=== PATIENT | male | born 1975 | race Caucasian/White ===

== ENCOUNTER 2016-11-01 16:21 | Inpatient (IN) | payer SELFPAY ==
[~2016-11-01] VITALS: Ht 182.9 cm; Wt 96.0 kg
[~2016-11-01 16:21] MED LIST: AMOXICILLIN500 MG PO; ARTIFI TEAR1 OS; BACTRIM DS1 TAB PO; BAYER ASPIRIN E81 MG PO; DIABETA5 MG PO; GLYBURIDE5 M1 PO; GLYBURIDE5 MG PO; KEFLEX500 M1 PO; LEVEMIR1000 UNITS SC; METFORMIN500 M2 PO; METFORMIN500 MG PO; MUPIROCIN2 % EX; NO HOME MEDS; NOVOLIN 70/30 INNLT SC; NOVOLIN 70/30 SC; ULTRAM50 MG PO; UNKNOWN ABX; ZOFRAN4 MG/TAB PO
[2016-11-01] MEDS ORDERED: LISINOPRIL5 MG PO (16:45)
[2016-11-01 20:18] LABS: ALBUMIN 3.7 g/dL (3.2-5.0); ALKALINE PHOSPHATASE 163 u/l (38-126); ANION GAP 23 (6-22 (CALC)); BILIRUBIN, TOTAL 0.6 mg/dL (0.0-1.4); BUN 12 mg/dL (9-20); BUN/CREATININE RATIO 18 (12-20 (CALC)); CALCIUM 9.2 mg/dL (8.4-10.2); CARBON DIOXIDE 19 mmol/l (22-30); CHLORIDE 98 mmol/l (95-108); CREATININE 0.6 mg/dL (0.7-1.3); GFR > 60 ML/MIN (>=60 (CALC)); GFR FOR AFR.AMER. > 60 ML/MIN (>=60 (CALC)); GLUCOSE 332 mg/dL (75-110); POTASSIUM 4.6 mmol/l (3.5-5.1); SGOT/AST 10 u/l (17-59); SGPT/ALT 21 u/l (21-72); SODIUM 136 mmol/l (137-146); TOTAL PROTEIN 6.9 g/dL (6.3-8.2)
[2016-11-01 21:18] LABS: HEMATOCRIT 41.1 % (39.0-50.0); HEMOGLOBIN 13.9 g/dl (14.0-18.0); IMMATURE GRANULOCYTES 0.3 % (0.0-1.0); MEAN CELL VOLUME 88.6 fL CALC (80.0-100.0); MEAN CORPUSCULAR HGB CONC 33.8 g/L CALC (32.0-36.0); NEUT# 8.56 thou/uL (1.82-7.42); RED BLOOD COUNT 4.64 mill/uL (4.70-6.10); RED CELL DISTRI WIDTH 12.7 % (11.5-15.5)
[2016-11-01 22:22] LABS: BARBITURATES NEGATIVE (NEGATIVE); COCAINE NEGATIVE (NEGATIVE); METHADONE NEGATIVE (NEGATIVE); OXCYCODONE NEGATIVE (NEGATIVE); TETRAHYDROCANNABIONOL POSITIVE (NEGATIVE); TRICYLIC ANTIDEPRESSANTS NEGATIVE (NEGATIVE)
[2016-11-01 23:00] VITALS: BP 141/108
[2016-11-02 04:35] VITALS: BP 151/83
[2016-11-02 07:59] LABS: HEMATOCRIT 41.4 % (39.0-50.0); IMMATURE GRANULOCYTES 0.5 % (0.0-1.0); MEAN CORPUSCULAR HGB 30.1 pG CALC (26.0-32.0); MEAN CORPUSCULAR HGB CONC 33.8 g/L CALC (32.0-36.0); NEUT# 6.26 thou/uL (1.82-7.42); RED BLOOD COUNT 4.65 mill/uL (4.70-6.10); RED CELL DISTRI WIDTH 12.8 % (11.5-15.5)
[2016-11-02 08:13] LABS: ANION GAP 21 (6-22 (CALC)); BUN 10 mg/dL (9-20); BUN/CREATININE RATIO 17 (12-20 (CALC)); CALCIUM 8.8 mg/dL (8.4-10.2); CARBON DIOXIDE 17 mmol/l (22-30); CHLORIDE 101 mmol/l (95-108); CREATININE 0.6 mg/dL (0.7-1.3); GFR > 60 ML/MIN (>=60 (CALC)); GFR FOR AFR.AMER. > 60 ML/MIN (>=60 (CALC)); GLUCOSE 242 mg/dL (75-110); POTASSIUM 4.4 mmol/l (3.5-5.1); SODIUM 134 mmol/l (137-146)
[2016-11-02 09:07] VITALS: BP 135/91
[2016-11-02 15:29] VITALS: BP 124/76
[2016-11-03 04:33] VITALS: BP 107/71
[2016-11-03 08:04] VITALS: BP 137/89
[2016-11-03] MEDS ORDERED: ACCUPRIL5 MG (08:28)
[2016-11-03 10:31] VITALS: BP 126/79
[2016-11-03 14:29] VITALS: BP 132/90
[2016-11-03 20:19] VITALS: BP 148/81
[2016-11-04 04:53] VITALS: BP 112/73
[2016-11-04 05:34] LABS: ANION GAP 10 (6-22 (CALC)); BUN 7 mg/dL (9-20); BUN/CREATININE RATIO 13 (12-20 (CALC)); CALCIUM 8.3 mg/dL (8.4-10.2); CARBON DIOXIDE 25 mmol/l (22-30); CHLORIDE 108 mmol/l (95-108); CREATININE 0.6 mg/dL (0.7-1.3); GFR > 60 ML/MIN (>=60 (CALC)); GFR FOR AFR.AMER. > 60 ML/MIN (>=60 (CALC)); GLUCOSE 52 mg/dL (75-110); POTASSIUM 3.2 mmol/l (3.5-5.1); SODIUM 140 mmol/l (137-146)
[2016-11-04 08:54] VITALS: BP 155/89
[2016-11-04 16:30] VITALS: BP 150/94
[2016-11-04 19:57] VITALS: BP 130/83
[2016-11-05] VITALS (9 sets, daily range): BP systolic 133–158; BP diastolic 74–100
[2016-11-05 05:47] LABS: HEMATOCRIT 41.3 % (39.0-50.0); HEMOGLOBIN 13.6 g/dl (14.0-18.0); IMMATURE GRANULOCYTES 0.3 % (0.0-1.0); MEAN CORPUSCULAR HGB 29.6 pG CALC (26.0-32.0); MEAN CORPUSCULAR HGB CONC 32.9 g/L CALC (32.0-36.0); NEUT# 3.5 thou/uL (1.82-7.42); RED BLOOD COUNT 4.59 mill/uL (4.70-6.10); RED CELL DISTRI WIDTH 13.2 % (11.5-15.5)
[2016-11-05 05:57] LABS: ANION GAP 12 (6-22 (CALC)); BUN 5 mg/dL (9-20); BUN/CREATININE RATIO 7 (12-20 (CALC)); CALCIUM 8.2 mg/dL (8.4-10.2); CARBON DIOXIDE 25 mmol/l (22-30); CHLORIDE 107 mmol/l (95-108); CREATININE 0.7 mg/dL (0.7-1.3); GFR > 60 ML/MIN (>=60 (CALC)); GFR FOR AFR.AMER. > 60 ML/MIN (>=60 (CALC)); GLUCOSE 222 mg/dL (75-110); POTASSIUM 3.7 mmol/l (3.5-5.1); SODIUM 140 mmol/l (137-146)
[2016-11-05 08:37] LABS: BARBITURATES NEGATIVE (NEGATIVE); COCAINE NEGATIVE (NEGATIVE); METHADONE NEGATIVE (NEGATIVE); TETRAHYDROCANNABIONOL POSITIVE (NEGATIVE); TRICYLIC ANTIDEPRESSANTS NEGATIVE (NEGATIVE)
[2016-11-05 08:38] LABS: OXCYCODONE NEGATIVE (NEGATIVE)
[2016-11-06 06:05] VITALS: BP 156/97
[2016-11-06 09:39] VITALS: BP 148/93
[2016-11-06 15:04] VITALS: BP 151/97
[2016-11-06 19:18] VITALS: BP 180/94
[2016-11-06 20:06] LABS: C. DIFFICILE TOXIN A&B NEGATIVE (NEGATIVE)
[2016-11-06 23:35] VITALS: BP 136/85
[2016-11-07 05:09] VITALS: BP 163/98
[2016-11-07 06:05] LABS: HEMATOCRIT 40.7 % (39.0-50.0); HEMOGLOBIN 13.5 g/dl (14.0-18.0); IMMATURE GRANULOCYTES 0.4 % (0.0-1.0); MEAN CELL VOLUME 90.4 fL CALC (80.0-100.0); MEAN CORPUSCULAR HGB CONC 33.2 g/L CALC (32.0-36.0); NEUT# 11.53 thou/uL (1.82-7.42); RED BLOOD COUNT 4.5 mill/uL (4.70-6.10); RED CELL DISTRI WIDTH 13.2 % (11.5-15.5)
[2016-11-07 06:52] LABS: ANION GAP 19 (6-22 (CALC)); BUN 5 mg/dL (9-20); BUN/CREATININE RATIO 7 (12-20 (CALC)); CALCIUM 8.4 mg/dL (8.4-10.2); CARBON DIOXIDE 21 mmol/l (22-30); CHLORIDE 109 mmol/l (95-108); CREATININE 0.8 mg/dL (0.7-1.3); GFR > 60 ML/MIN (>=60 (CALC)); GFR FOR AFR.AMER. > 60 ML/MIN (>=60 (CALC)); GLUCOSE 215 mg/dL (75-110); POTASSIUM 3.3 mmol/l (3.5-5.1); SODIUM 146 mmol/l (137-146)
[2016-11-07 08:50] VITALS: BP 136/80
[2016-11-07 15:25] VITALS: BP 156/94
[2016-11-07 20:10] VITALS: BP 130/67
[2016-11-07 21:04] VITALS: BP 147/90
[2016-11-08 04:37] VITALS: BP 144/91
[2016-11-08 05:06] LABS: HEMATOCRIT 40.1 % (39.0-50.0); HEMOGLOBIN 13.4 g/dl (14.0-18.0); IMMATURE GRANULOCYTES 0.3 % (0.0-1.0); MEAN CELL VOLUME 88.9 fL CALC (80.0-100.0); MEAN CORPUSCULAR HGB 29.7 pG CALC (26.0-32.0); MEAN CORPUSCULAR HGB CONC 33.4 g/L CALC (32.0-36.0); NEUT# 10.42 thou/uL (1.82-7.42); RED BLOOD COUNT 4.51 mill/uL (4.70-6.10); RED CELL DISTRI WIDTH 13.2 % (11.5-15.5)
[2016-11-08 05:18] LABS: ANION GAP 15 (6-22 (CALC)); BUN 7 mg/dL (9-20); BUN/CREATININE RATIO 9 (12-20 (CALC)); CARBON DIOXIDE 27 mmol/l (22-30); CHLORIDE 106 mmol/l (95-108); CREATININE 0.8 mg/dL (0.7-1.3); GFR > 60 ML/MIN (>=60 (CALC)); GFR FOR AFR.AMER. > 60 ML/MIN (>=60 (CALC)); GLUCOSE 132 mg/dL (75-110); POTASSIUM 3.5 mmol/l (3.5-5.1); SODIUM 145 mmol/l (137-146)
[2016-11-08 08:20] VITALS: BP 105/69
[2016-11-08 12:59] VITALS: BP 105/69
[2016-11-08] MEDS ORDERED: SERTRALINE HCL50 MG PO (13:09)
[2016-11-08] MEDS ORDERED: PANTOPRAZOLE SO40 M1 PO (13:09)
[2016-11-08] MEDS ORDERED: FLORASTOR250 M1 PO (13:09)
[2016-11-08] MEDS ORDERED: ZOFRAN ODT4 MG PO (13:09)
[2016-11-08] MEDS ORDERED: DOXYCYC MONO100 M2 PO (13:09)
[2016-11-08] MEDS ORDERED: CIPROFLOXACN250 MG PO (13:09)
[2016-11-08] MEDS ORDERED: LORTAB 10-325 M1 TAB PO (13:09)
== END 2016-11-08 16:22 | disposition home or self-care (01) | DRG 617 ==
LOC: ENPENDDIS → ED 16:21 → ED-I 21:00 → ED 21:58 → MS2 21:59
PROVIDERS: Emergency Medicine; Internal Medicine; ADMIT Internal Medicine; ATTEND Internal Medicine
PROC: 02HV33Z Insertion of Infusion Device into Superior Vena Cava, Percutaneous Approach (ICD-10-PCS; principal; 2016-11-01)
PROC: 0Y6S0Z0 Detachment at Left 2nd Toe, Complete, Open Approach (ICD-10-PCS; 2016-11-05)
DX: E11.69 Type 2 diabetes mellitus with other specified complication (principal); E11.52 Type 2 diabetes mellitus with diabetic peripheral angiopathy with gangrene; M86.172 Other acute osteomyelitis, left ankle and foot; F15.20 Other stimulant dependence, uncomplicated; E11.65 Type 2 diabetes mellitus with hyperglycemia; L97.524 Non-pressure chronic ulcer of other part of left foot with necrosis of bone; L02.612 Cutaneous abscess of left foot; E11.621 Type 2 diabetes mellitus with foot ulcer; E11.42 Type 2 diabetes mellitus with diabetic polyneuropathy; E11.628 Type 2 diabetes mellitus with other skin complications; F17.210 Nicotine dependence, cigarettes, uncomplicated; F10.10 Alcohol abuse, uncomplicated; I10 Essential (primary) hypertension; F12.20 Cannabis dependence, uncomplicated; L03.032 Cellulitis of left toe; B96.5 Pseudomonas (aeruginosa) (mallei) (pseudomallei) as the cause of diseases classified elsewhere; Z91.14 Patient's other noncompliance with medication regimen; Z79.4 Long term (current) use of insulin; Z89.412 Acquired absence of left great toe
CPT/HCPCS: J3370

== ENCOUNTER 2016-12-11 14:37 | Observation (INO) | payer SELFPAY ==
[~2016-12-11] VITALS: Ht 182.9 cm; Wt 102.0 kg
[~2016-12-11 14:37] MED LIST changes: +ACCUPRIL5 MG; +CIPROFLOXACN250 MG PO; +DOXYCYC MONO100 M2 PO; +FLORASTOR250 M1 PO; +LISINOPRIL5 MG PO; +LORTAB 10-325 M1 TAB PO; +PANTOPRAZOLE SO40 M1 PO; +SERTRALINE HCL50 MG PO; +ZOFRAN ODT4 MG PO
[2016-12-11] MEDS ORDERED: NOVOLIN 70/30 SC (15:03)
[2016-12-11] MEDS ORDERED: METFORMIN500 M2 PO (15:03)
[2016-12-11 16:20] LABS: HEMATOCRIT 37.6 % (39.0-50.0); HEMOGLOBIN 12.5 g/dl (14.0-18.0); IMMATURE GRANULOCYTES 0.2 % (0.0-1.0); MEAN CORPUSCULAR HGB 29.9 pG CALC (26.0-32.0); MEAN CORPUSCULAR HGB CONC 33.2 g/L CALC (32.0-36.0); NEUT# 3.43 thou/uL (1.82-7.42); RED BLOOD COUNT 4.18 mill/uL (4.70-6.10); RED CELL DISTRI WIDTH 13.9 % (11.5-15.5)
[2016-12-11 16:32] LABS: ALBUMIN 3.5 g/dL (3.2-5.0); ALKALINE PHOSPHATASE 87 u/l (38-126); ANION GAP 15 (6-22 (CALC)); BILIRUBIN, TOTAL 0.5 mg/dL (0.0-1.4); BUN 8 mg/dL (9-20); BUN/CREATININE RATIO 12 (12-20 (CALC)); CALCIUM 8.7 mg/dL (8.4-10.2); CARBON DIOXIDE 25 mmol/l (22-30); CHLORIDE 97 mmol/l (95-108); CREATININE 0.7 mg/dL (0.7-1.3); GFR > 60 ML/MIN (>=60 (CALC)); GFR FOR AFR.AMER. > 60 ML/MIN (>=60 (CALC)); POTASSIUM 4.1 mmol/l (3.5-5.1); SGOT/AST 13 u/l (17-59); SGPT/ALT 18 u/l (21-72); SODIUM 133 mmol/l (137-146); TOTAL PROTEIN 6.2 g/dL (6.3-8.2)
[2016-12-11 16:37] LABS: GLUCOSE 614 mg/dL (75-110)
[2016-12-11 19:22] VITALS: BP 131/84
[2016-12-12] VITALS (8 sets, daily range): BP systolic 116–174; BP diastolic 68–119
[2016-12-12 08:41] LABS: BARBITURATES NEGATIVE (NEGATIVE); COCAINE NEGATIVE (NEGATIVE); METHADONE NEGATIVE (NEGATIVE); TETRAHYDROCANNABIONOL POSITIVE (NEGATIVE); TRICYLIC ANTIDEPRESSANTS NEGATIVE (NEGATIVE)
[2016-12-12 08:42] LABS: OXCYCODONE NEGATIVE (NEGATIVE)
[2016-12-13 04:27] VITALS: BP 143/86
[2016-12-13 05:28] LABS: HEMOGLOBIN 13.9 g/dl (14.0-18.0); IMMATURE GRANULOCYTES 0.9 % (0.0-1.0); MEAN CELL VOLUME 91.1 fL CALC (80.0-100.0); MEAN CORPUSCULAR HGB 29.4 pG CALC (26.0-32.0); MEAN CORPUSCULAR HGB CONC 32.3 g/L CALC (32.0-36.0); NEUT# 3.14 thou/uL (1.82-7.42); RED BLOOD COUNT 4.72 mill/uL (4.70-6.10); RED CELL DISTRI WIDTH 13.8 % (11.5-15.5)
[2016-12-13 05:30] LABS: ANION GAP 10 (6-22 (CALC)); BUN 7 mg/dL (9-20); BUN/CREATININE RATIO 9 (12-20 (CALC)); CALCIUM 8.7 mg/dL (8.4-10.2); CARBON DIOXIDE 29 mmol/l (22-30); CHLORIDE 106 mmol/l (95-108); CREATININE 0.7 mg/dL (0.7-1.3); GFR > 60 ML/MIN (>=60 (CALC)); GFR FOR AFR.AMER. > 60 ML/MIN (>=60 (CALC)); GLUCOSE 153 mg/dL (75-110); POTASSIUM 3.6 mmol/l (3.5-5.1); SODIUM 141 mmol/l (137-146)
[2016-12-13 07:50] VITALS: BP 161/109
[2016-12-13 11:23] VITALS: BP 153/97
[2016-12-13] MEDS ORDERED: BACTRIM DS1 TAB PO (11:46)
[2016-12-13] MEDS ORDERED: CIPROFLOXACN500 MG PO (11:46)
== END 2016-12-13 14:38 | disposition home or self-care (01) | DRG 638 ==
LOC: ENPENDDIS → ED 14:37 → ED-I 16:40 → ED 17:05 → MS2 17:06
PROVIDERS: Emergency Medicine; Internal Medicine; Podiatrist Foot & Ankle Surgery; ADMIT Internal Medicine; ATTEND Internal Medicine
DX: E11.628 Type 2 diabetes mellitus with other skin complications (principal); L97.421 Non-pressure chronic ulcer of left heel and midfoot limited to breakdown of skin; M86.9 Osteomyelitis, unspecified; E11.42 Type 2 diabetes mellitus with diabetic polyneuropathy; E11.621 Type 2 diabetes mellitus with foot ulcer; E11.69 Type 2 diabetes mellitus with other specified complication; L03.031 Cellulitis of right toe; L97.519 Non-pressure chronic ulcer of other part of right foot with unspecified severity; E11.65 Type 2 diabetes mellitus with hyperglycemia; I10 Essential (primary) hypertension; F15.10 Other stimulant abuse, uncomplicated; F10.10 Alcohol abuse, uncomplicated; F17.210 Nicotine dependence, cigarettes, uncomplicated; Z53.09 Procedure and treatment not carried out because of other contraindication; Z91.14 Patient's other noncompliance with medication regimen; Z89.422 Acquired absence of other left toe(s); Z79.4 Long term (current) use of insulin; Z76.5 Malingerer [conscious simulation]; Z89.412 Acquired absence of left great toe
CPT/HCPCS: G0378; J3370

== ENCOUNTER 2017-03-08 01:30 | Inpatient (IN) | payer SELFPAY ==
[2017-03-08] VITALS (14 sets, daily range): BP systolic 118–178; BP diastolic 68–94
[~2017-03-08] VITALS: Ht 182.9 cm; Wt 87.8 kg
[~2017-03-08 01:30] MED LIST changes: +CIPROFLOXACN500 MG PO
[2017-03-08 02:44] LABS: HEMATOCRIT 43.5 % (39.0-50.0); HEMOGLOBIN 14.4 g/dl (14.0-18.0); IMMATURE GRANULOCYTES 0.9 % (0.0-1.0); MEAN CELL VOLUME 93.1 fL CALC (80.0-100.0); MEAN CORPUSCULAR HGB 30.8 pG CALC (26.0-32.0); MEAN CORPUSCULAR HGB CONC 33.1 g/L CALC (32.0-36.0); NEUT# 23.71 thou/uL (1.82-7.42); RED BLOOD COUNT 4.67 mill/uL (4.70-6.10); RED CELL DISTRI WIDTH 13.8 % (11.5-15.5)
[2017-03-08 02:55] LABS: AMYLASE 73 u/l (30-110); LIPASE 141 u/l (23-300)
[2017-03-08 02:57] LABS: ALBUMIN 4.2 g/dL (3.2-5.0); ALKALINE PHOSPHATASE 136 u/l (38-126); BILIRUBIN, TOTAL 0.8 mg/dL (0.0-1.4); BUN 32 mg/dL (9-20); BUN/CREATININE RATIO 22 (12-20 (CALC)); CALCIUM 8.2 mg/dL (8.4-10.2); CHLORIDE 89 mmol/l (95-108); CREATININE 1.5 mg/dL (0.7-1.3); ETHYL ALCOHOL 0 mg/dl (0-30); GFR 52 ML/MIN (>=60 (CALC)); GFR FOR AFR.AMER. > 60 ML/MIN (>=60 (CALC)); SGOT/AST 12 u/l (17-59); SGPT/ALT 21 u/l (21-72); SODIUM 130 mmol/l (137-146); TOTAL PROTEIN 6.5 g/dL (6.3-8.2)
[2017-03-08 03:06] LABS: ANION GAP 43 (6-22 (CALC))
[2017-03-08 03:07] LABS: GLUCOSE 1165 mg/dL (75-110); POTASSIUM 6.6 mmol/l (3.5-5.1)
[2017-03-08 03:08] LABS: CARBON DIOXIDE < 5 mmol/l (22-30)
[2017-03-08 07:05] LABS: BUN 30 mg/dL (9-20); BUN/CREATININE RATIO 30 (12-20 (CALC)); CALCIUM 8.1 mg/dL (8.4-10.2); CARBON DIOXIDE 13 mmol/l (22-30); GFR > 60 ML/MIN (>=60 (CALC)); GFR FOR AFR.AMER. > 60 ML/MIN (>=60 (CALC)); MAGNESIUM 1.9 mg/dL (1.6-2.3)
[2017-03-08 07:07] LABS: ANION GAP 27 (6-22 (CALC)); CHLORIDE 107 mmol/l (95-108); POTASSIUM 4.2 mmol/l (3.5-5.1); SODIUM 143 mmol/l (137-146)
[2017-03-08 07:12] LABS: GLUCOSE 619 mg/dL (75-110)
[2017-03-08 15:08] LABS: ANION GAP 16 (6-22 (CALC)); BUN 24 mg/dL (9-20); BUN/CREATININE RATIO 33 (12-20 (CALC)); CALCIUM 8.4 mg/dL (8.4-10.2); CARBON DIOXIDE 23 mmol/l (22-30); CHLORIDE 108 mmol/l (95-108); CREATININE 0.7 mg/dL (0.7-1.3); GFR > 60 ML/MIN (>=60 (CALC)); GFR FOR AFR.AMER. > 60 ML/MIN (>=60 (CALC)); GLUCOSE 247 mg/dL (75-110); POTASSIUM 3.8 mmol/l (3.5-5.1); SODIUM 143 mmol/l (137-146)
[2017-03-09] VITALS (8 sets, daily range): BP systolic 132–164; BP diastolic 63–88
[2017-03-09 05:29] LABS: HEMATOCRIT 35.9 % (39.0-50.0); HEMOGLOBIN 12.3 g/dl (14.0-18.0); MEAN CORPUSCULAR HGB 30.1 pG CALC (26.0-32.0); MEAN CORPUSCULAR HGB CONC 34.3 g/L CALC (32.0-36.0); RED BLOOD COUNT 4.08 mill/uL (4.70-6.10); RED CELL DISTRI WIDTH 14.1 % (11.5-15.5)
[2017-03-09 05:36] LABS: ANION GAP 11 (6-22 (CALC)); BUN 15 mg/dL (9-20); BUN/CREATININE RATIO 28 (12-20 (CALC)); CALCIUM 8.5 mg/dL (8.4-10.2); CARBON DIOXIDE 27 mmol/l (22-30); CHLORIDE 105 mmol/l (95-108); CREATININE 0.5 mg/dL (0.7-1.3); GFR > 60 ML/MIN (>=60 (CALC)); GFR FOR AFR.AMER. > 60 ML/MIN (>=60 (CALC)); GLUCOSE 90 mg/dL (75-110); MAGNESIUM 1.7 mg/dL (1.6-2.3); POTASSIUM 3.4 mmol/l (3.5-5.1); SODIUM 140 mmol/l (137-146)
[2017-03-09 07:30] LABS: URINE BILIRUBIN - DIPSTICK NEGATIVE (NEGATIVE); URINE BLOOD DIPSTICK NEGATIVE (NEGATIVE); URINE CLARITY CLEAR; URINE COLOR YELLOW; URINE GLUCOSE - DIPSTICK 500 mg/dL (NEGATIVE); URINE KETONE 15 mg/dL (NEGATIVE); URINE LEUK ESTERASE NEGATIVE (NEGATIVE); URINE NITRITE - DIPSTICK NEGATIVE (Negative); URINE PROTEIN - DIPSTICK NEGATIVE (NEG-TRACE); URINE UROBILINOGEN - DIPSTICK 0.2 E.U./dL (0.2)
[2017-03-09 07:31] LABS: BARBITURATES NEGATIVE (NEGATIVE); COCAINE NEGATIVE (NEGATIVE); METHADONE NEGATIVE (NEGATIVE); OXCYCODONE NEGATIVE (NEGATIVE); TETRAHYDROCANNABIONOL POSITIVE (NEGATIVE); TRICYLIC ANTIDEPRESSANTS NEGATIVE (NEGATIVE)
== END 2017-03-09 15:00 | disposition home or self-care (01) | DRG 638 ==
LOC: ED 01:30 → ED-I 03:00 → ED 03:15 → ICU 03:16
PROVIDERS: Emergency Medicine; ADMIT Internal Medicine; ATTEND Internal Medicine
DX: E13.10 Other specified diabetes mellitus with ketoacidosis without coma (principal); N17.9 Acute kidney failure, unspecified; E87.4 Mixed disorder of acid-base balance; E87.5 Hyperkalemia; I10 Essential (primary) hypertension; F10.10 Alcohol abuse, uncomplicated; F17.200 Nicotine dependence, unspecified, uncomplicated; F15.10 Other stimulant abuse, uncomplicated; F12.10 Cannabis abuse, uncomplicated; Z89.422 Acquired absence of other left toe(s); Z79.4 Long term (current) use of insulin; Z91.14 Patient's other noncompliance with medication regimen

== ENCOUNTER 2017-09-09 04:53 | Emergency (ER) | payer SELFPAY ==
[~2017-09-09] VITALS: Ht 182.9 cm; Wt 77.3 kg
[2017-09-09 05:32] LABS: ALBUMIN 3.8 g/dL (3.2-5.0); ALKALINE PHOSPHATASE 120 u/l (38-126); BILIRUBIN, TOTAL 0.7 mg/dL (0.0-1.4); BUN 67 mg/dL (9-20); BUN/CREATININE RATIO 66 (12-20 (CALC)); CARBON DIOXIDE 23 mmol/l (22-30); CHLORIDE 93 mmol/l (95-108); GFR > 60 ML/MIN (>=60 (CALC)); GFR FOR AFR.AMER. > 60 ML/MIN (>=60 (CALC)); SGOT/AST 18 u/l (17-59); SGPT/ALT 20 u/l (21-72); TOTAL PROTEIN 6.5 g/dL (6.3-8.2)
[2017-09-09 05:36] LABS: HEMATOCRIT 36.2 % (39.0-50.0); HEMOGLOBIN 12.5 g/dl (14.0-18.0); RED BLOOD COUNT 3.85 mill/uL (4.70-6.10)
[2017-09-09 05:37] LABS: MANUAL DIFFERENTIAL YES; MEAN CORPUSCULAR HGB 32.5 pG CALC (26.0-32.0); MEAN CORPUSCULAR HGB CONC 34.5 g/L CALC (32.0-36.0); PLATELET COUNT 385 thou/uL (130-400); RED CELL DISTRI WIDTH 13.2 % (11.5-15.5)
[2017-09-09 05:38] LABS: ANION GAP 20 (6-22 (CALC)); PROTHROMBIN TIME 10.7 SECONDS (9.0-12.5)
[2017-09-09 05:39] LABS: POTASSIUM 5.3 mmol/l (3.5-5.1); SODIUM 131 mmol/l (137-146)
[2017-09-09 08:10] VITALS: BP 108/72
== END 2017-09-09 09:15 | disposition short-term general hospital (02) | DRG 379 ==
LOC: ED 04:53
PROVIDERS: Emergency Medicine
DX: K92.2 Gastrointestinal hemorrhage, unspecified (principal); E11.621 Type 2 diabetes mellitus with foot ulcer; F17.210 Nicotine dependence, cigarettes, uncomplicated; E11.65 Type 2 diabetes mellitus with hyperglycemia; L97.529 Non-pressure chronic ulcer of other part of left foot with unspecified severity
CPT/HCPCS: S0164

== ENCOUNTER 2018-04-22 17:37 | Inpatient (IN) | payer OTHER ==
[~2018-04-22] VITALS: Ht 182.9 cm; Wt 72.7 kg
--- NOTE | 2018-04-22 17:47 | NUR ---
PT TO ROOM VIA EMS
[2018-04-22 18:21] LABS: HEMATOCRIT 31.8 % (39.0-50.0); HEMOGLOBIN 10.7 g/dl (14.0-18.0); IMMATURE GRANULOCYTES 0.3 % (0.0-5.0); MEAN CELL VOLUME 90.3 fL CALC (80.0-100.0); MEAN CORPUSCULAR HGB 30.4 pG CALC (26.0-32.0); MEAN CORPUSCULAR HGB CONC 33.6 g/L CALC (32.0-36.0); NEUT# 7.89 thou/uL (1.82-7.42); RED BLOOD COUNT 3.52 mill/uL (4.70-6.10); RED CELL DISTRI WIDTH 13.4 % (11.5-15.5)
[2018-04-22 18:30] LABS: ACT PARTIAL THROMBO TIME 22.9 SECONDS (20.0-32.5)
[2018-04-22 18:34] LABS: ANION GAP 13 (6-22 (CALC)); BILIRUBIN, TOTAL 0.7 mg/dL (0.0-1.4); BUN 17 mg/dL (9-20); BUN/CREATININE RATIO 28 (12-20 (CALC)); CARBON DIOXIDE 29 mmol/l (22-30); CHLORIDE 101 mmol/l (95-108); CREATININE 0.6 mg/dL (0.7-1.3); GFR > 60 ML/MIN (>=60 (CALC)); GFR FOR AFR.AMER. > 60 ML/MIN (>=60 (CALC)); SGOT/AST 26 u/l (17-59); SODIUM 140 mmol/l (137-146)
[2018-04-22 18:35] LABS: ALBUMIN 3.7 g/dL (3.2-5.0); ALKALINE PHOSPHATASE 115 u/l (38-126); TOTAL PROTEIN 6.5 g/dL (6.3-8.2)
--- NOTE | 2018-04-22 18:48 | NUR ---
PATIENT RESTING AWAITING LAB AND RADIOLOGY RESULTS PATIENT STATES PAIN IN FOOT 4 ON 0-10 SCALE
--- NOTE | 2018-04-22 18:50 | NUR ---
PORTABLE XRAYS COMPLETED
--- NOTE | 2018-04-22 19:45 | NUR ---
ULCER TO L FOOT CLEANED WITH SALINE, TELFA DRESSING APPLIED.
--- NOTE | 2018-04-22 19:45 | NUR ---
ULCER TO R FOOT CLEANED WITH SALINE, TELFA DRESSING APPLIED.
--- NOTE | 2018-04-22 19:46 | NUR ---
ULCER TO L GREAT TOE CLEANED WITH SALINE, TELFA DRESSING APPLIED.
--- NOTE | 2018-04-22 19:59 | NUR ---
PT PROVIDED WATER AND [facility].
--- NOTE | 2018-04-22 20:38 | NUR ---
FLOOR CALLED FOR REPORT, UNABLE TO TAKE AT THIS TIME.
--- NOTE | 2018-04-22 20:55 | NUR ---
REPORT CALLED TO CHRISTOFER ALEX.
[2018-04-22 21:00] VITALS: BP 136/70
--- NOTE | 2018-04-22 21:15 | NUR ---
PT ARRIVED TO UNIT ACCOMPANIED BY ED NURSE, VIA STRETCHER AND SCOOTED HIMSELF TO HOSPITAL BED. FOLLOWED INSTRUCTIONS AND ANSWERED QUESTIONS MOANING AND GROANING IN BETWEEN, FLOPPING ON THE BED. DIFFICULT TO UNDERSTAND AND COMMUNICATE WITH. WHEN ASKED QUESTIONS HE HAS TO BE ASKED TWICE AND THEN HE WILL ANSWER. LOC TO SELF, DATE, AND LOCATION/SITUATION. PT REPORTS BEING AN ALCOHOLIC AND DRINKING 1 PINT OF VODKA DAILY INCLUDING THIS DAY. WILL NOTIFY PHYSICIAN. PT ASSESSED. FEET ARE EDEMATOUS 2+ BILATERALLY WITH DRESSINGS CDI TO BOTH FEET. LUNG SOUNDS ARE CLEAR, ABD SOFT NON-TENDER. V/S ASSESSED AT THIS TIME TO BE STABLE. TEMP IS 98.3. BS ASSESSED @117. WILL CONTINUE TO MONITOR.
--- NOTE | 2018-04-22 21:15 | NUR ---
PT TO 269 WITH RN. ALL BELONGINGS WITH PT.
--- NOTE | 2018-04-22 21:45 | NUR ---
PHYSICIAN NOTIFIED OF PT REPORTS OF DAILY HEAVY ALCOHOL USE AND ERATIC BEHAVIOR. ORDERS RECEIVED AND ETOH HAS BEEN ORDERED. WILL CONTINUE TO MONITOR PT NEEDED.
[2018-04-22 22:50] VITALS: BP 128/69
--- NOTE | 2018-04-22 22:50 | NUR ---
MEDICATIONS HELD DUE TO PT BEING VERY LITHARGIC. V/S ASSESSED AGAIN AT THIS TIME 128/69,HR98,TEMP97.7,[id number]% WOULD BARELY OPEN HIS EYES, COULD COMMUNICATE W/SLURRED MUMBLING SPEECH. TUMBLER DRIER OPERATOR COMFIRMED EQUAL, PUPIL 3/EQUAL AND REACTIVE.
--- NOTE | 2018-04-23 03:20 | NUR ---
PT HAS NOT BEEN ABLE TO URINATE SINCE ARRIVING TO THE FLOOR, PT AGREED FOR BLADDER SCAN. SCAN SHOWED >999. POC DISCUSSED WITH PT, HE IS STATING THAT EVEN IF THE DOCTOR ORDERS CATHETERIZATION HE WILL LEAVE, HE WILL NOT BE CATHETERIZED. I REASSURED HIM THAT WOULD ONLY BE ORDERED IF HE WAS UN ABLE TO URINATE, BUT THAT HE NEEDED TO GET UP AND TRY. HE HAD BEEN ATTEMPTING THROUGHOUT THE EVENING W/MY COAXING TO USE URINAL IN BED, PT WAS VERY GROGGY AND SLEEPING THROUGHOUT THE EVENING. PT BECAME SOMEWHAT BELIGERENT AND TOLD ME TO LEAVE. I INFORMED HIM THAT I WOULD BE BACK IN 5 MINUTES TO CHECK FOR URINE OTHERWISE I WOULD HAVE TO CALL PHYSICIAN. HE WAS ABLE TO URINATE AN OUTPUT OF 700 IN URINAL. SAMPLE SENT TO LAB. WILL CONTINUE TO MONITOR.
[2018-04-23 03:30] VITALS: BP 133/53
[2018-04-23 03:39] LABS: BARBITURATES NEGATIVE (NEGATIVE); COCAINE NEGATIVE (NEGATIVE); METHADONE NEGATIVE (NEGATIVE); TETRAHYDROCANNABIONOL POSITIVE (NEGATIVE); TRICYLIC ANTIDEPRESSANTS NEGATIVE (NEGATIVE)
[2018-04-23 03:40] LABS: OXCYCODONE NEGATIVE (NEGATIVE)
--- NOTE | 2018-04-23 04:50 | NUR ---
PT V/S ASSESSED AND DRESSING CHANGED TO FEET BILATERALLY/PICTURES TAKEN AND IN CHART. IV FLUIDS CHANGED TO NS@125 ORDERS PROVIDE. PT IS SLEEPING SOUNDLY AND AWOKE SLIGHTLY THROUGHOUT ALL ACTIVITY PROMPTLY RETURNING BACK TO SLEEP. CALL LIGHT AT BEDSIDE. NO S/S OF DISTRESS NOTED AT THIS TIME.
--- NOTE | 2018-04-23 07:10 | NUR ---
PT REPORT RECIEVED FROM ABI DIAZ. PT RESTING IN BED. NO S/S OF DISTRESS. WILL CONTINUE TO MONITOR
[2018-04-23 08:16] VITALS: BP 151/85
--- NOTE | 2018-04-23 08:16 | NUR ---
PT ASSESSMENT COMPLETE. PT APPEARS TO BE DROWSY AND MOANING ALOT. BUT ANSWERS ALL QUESTIONS. A/O X3. SPEECH IS SLURRED. PERRLA. RESP EVEN AND UNLABORED. LUNG SOUNDS CLEAR. BOWEL SOUNDS ACTIVE X4. STRONG RADIAL PULSES, WEAK PEDAL PULSES. PT C/O ACHING BILATERAL LEGS R/T NEUROPATHY 6 OUT OF 10 ON PAIN SCALE. LEGS ELEVATED ON TWO PILLOWS. PT HAS DRESSINGS TO BILATERAL LEGS, CDI. #18 EMS NS @125. SITE APPEARS HEALTHY. PLAN OF CARE DISCUSSED. SAFETY PRECAUTIONS IN PLACE. CALL LIGHT IN REACH. WILL CONTINUE TO MONITOR.
--- NOTE | 2018-04-23 08:40 | NUR ---
DR. MARTINEZ WAS NOTIFIED ABOUT THE CONSULT @9791. I SPOKE TO DR. MARTINEZ PERSONALLY AND HE STATED THAT HE WOULD SEE THE PT TODAY.
[2018-04-23 10:15] LABS: URINE BILIRUBIN - DIPSTICK NEGATIVE (NEGATIVE); URINE BLOOD DIPSTICK NEGATIVE (NEGATIVE); URINE GLUCOSE - DIPSTICK 500 mg/dL (NEGATIVE); URINE KETONE NEGATIVE (NEGATIVE); URINE LEUK ESTERASE NEGATIVE (Negative); URINE NITRITE - DIPSTICK NEGATIVE (Negative); URINE PROTEIN - DIPSTICK 30 mg/dL (NEG-TRACE); URINE SPECIFIC GRAVITY 1.015
[2018-04-23 10:16] LABS: URINE CLARITY SL CLOUDY; URINE COLOR DK. YELLOW
[2018-04-23 10:17] LABS: URINE EPITHELIAL CELLS MODERATE EPI/hpf (0-FEW)
--- NOTE | 2018-04-23 12:15 | NUR ---
PT RESTING IN BED WITH COVERS OVER HIS FACE. PT DENIES ANY PAIN OR NEEDS AT THIS TIME. TELE IN PLACE. LEGS ELEVATED ON PILLOWS. CALL LIGHT IN REACH. WILL CONTINUE TO MONITOR
[2018-04-23 15:20] VITALS: BP 146/79
--- NOTE | 2018-04-23 16:22 | NUR ---
PT SLEEPING IN BED. WHEN ASKED IF HE NEEDED ANYTHING PT STATED "NO". PT SEEMS A BIT AGITATED BUT IS BACK SLEEPING. DENYING ANY PAIN OR NEEDS AT THIS TIME. CALL LIGHT IN REACH. URINAL AT BEDSIDE. WILL CONTINUE TO MONITOR
[2018-04-23 20:09] VITALS: BP 134/84
--- NOTE | 2018-04-23 21:10 | NUR ---
IV PUMP SOUNDING ALARM, PT IS SLEEPING SOUNDLY, SLIGHT SNORE, NO S/S OF DISTRESS AND DID NOT AWAKE TO MY ENTERING ROOM. PT AWAKENED AND ASSESSED. LUNG SOUNDS ARE CLEAR, LOCX3, DRESSING TO FEET BILAT CDI. NEURO'S INTACT, PT DENIES ANY NEEDS AT THIS TIME. POC DISCUSSED. CALL LIGHT AT BEDSIDE.
--- NOTE | 2018-04-23 23:51 | NUR ---
PT MEDICATED W/ANTIBIOTIC IV THERAPY. PT REFUSED LIBRIUM STATING HE DOES NOT NEED IT. NO S/S OF DISTRESS NOTED. DENIES VISUAL OR AUDITORY DISTURBANCES, NO NOTED TREMORS AT THIS TIME. WILL CONTINUE TO MONITOR.
[2018-04-24] VITALS (10 sets, daily range): BP systolic 100–161; BP diastolic 59–103
--- NOTE | 2018-04-24 04:10 | NUR ---
PT IS SLEEPING SOUNDLY, NO NOTED TREMORS OR S/S OF DISTRESS NOTED. PT DENIES ANY AUDITORY OR VISUAL DISTURBANCES. DENIES ANY PAIN AT THIS TIME. CALL LIGHT W/IN REACH. WILL CONTINUE TO MONITOR.
[2018-04-24 05:53] LABS: HEMATOCRIT 32.4 % (39.0-50.0); HEMOGLOBIN 10.7 g/dl (14.0-18.0); IMMATURE GRANULOCYTES 0.3 % (0.0-5.0); MEAN CELL VOLUME 91.8 fL CALC (80.0-100.0); MEAN CORPUSCULAR HGB 30.3 pG CALC (26.0-32.0); NEUT# 4.2 thou/uL (1.82-7.42); RED BLOOD COUNT 3.53 mill/uL (4.70-6.10); RED CELL DISTRI WIDTH 13.2 % (11.5-15.5)
[2018-04-24 06:10] LABS: ALKALINE PHOSPHATASE 110 u/l (38-126); ANION GAP 14 (6-22 (CALC)); BILIRUBIN, TOTAL 0.4 mg/dL (0.0-1.4); BUN 10 mg/dL (9-20); BUN/CREATININE RATIO 22 (12-20 (CALC)); CARBON DIOXIDE 24 mmol/l (22-30); CHLORIDE 105 mmol/l (95-108); CREATININE 0.5 mg/dL (0.7-1.3); GFR > 60 ML/MIN (>=60 (CALC)); GFR FOR AFR.AMER. > 60 ML/MIN (>=60 (CALC)); MAGNESIUM 1.9 mg/dL (1.6-2.3); POTASSIUM 4.3 mmol/l (3.5-5.1); SGOT/AST 16 u/l (17-59); SODIUM 139 mmol/l (137-146); TOTAL PROTEIN 5.3 g/dL (6.3-8.2)
[2018-04-24 06:15] LABS: ALBUMIN 2.8 g/dL (3.2-5.0)
--- NOTE | 2018-04-24 06:25 | NUR ---
PT MEDICATED ORDERS PROVIDE W/IV ANTIBIOTIC THERAPY. PT DENIES ANY AUDITORY OR VISUAL DISTRUBANCES, NO S/O TREMORS OR OTHER DISTRESSES. NEURO'S INTACT. CIWA SCORE OF 1. PT REFUSES LIBRIUM AT THIS TIME. CALL LIGHT AT SIDE AND PT ENCOURAGED TO CALL IF ANY CHANGES OR NEEDS OCCUR.
--- NOTE | 2018-04-24 07:35 | NUR ---
TO MRI VIA W/C AFTER AM ASSESSMENT COMPLETE PT APPEARS AGGRAVATED AND S CURSING BECAUSE HIS BREAKFAST HASN'T ARRIVED, AND THAT WE BETTER NOT SEND HIM DOWN TO MRI THEN "JUAN TELL ME I CAN'T HAVE IT CAUSE I NAOMI BE NPO FPR MY SURGERY, CAUSE I WILL NETTE WALK OUTTA HERE AND GO TO [facility]" P EDUCATED REGARDING HOLDING HIS AM MEAL UNTIL HIS RETURN THEN HE WILL BE NPO AFTER HE EATS BREAKFAST, PT AGREEABLE AT THIS TIME
--- NOTE | 2018-04-24 08:05 | NUR ---
PRELIMINARY BLOOD CULTURE RESULTS CALLED TO , GRAM (+) COCCI GROWING IN BOTH SETS. ORDER FOR PHARMACY TO DOSE VANCOMYCIN OBTAINED.
--- NOTE | 2018-04-24 08:07 | NUR ---
S: TONIO BARROSO is a 42 M who presents with R FOOT CELLULITIS. He has a history of CELLULITIS DUE TO UNCONTROLLED DIABETES. All medications in patient's chart were reviewed. O: VS: BP 135/65, P80, RR20,T 98.7 W 72 kg, HT 72 IN, Scr=0.5,CrCl= >100 ml/min A: Blood culture GRAM (+) COCCI which is sensitive to PENDING. WOUND culture SHOW MSSA which is sensitive to SEE REPORT. P: Patient is on ZOSYN AND VANCO. Vancomycin ordered for pharmacy to dose. Start Vancomycin 1250 IV Q12H. Vancomycin trough is drawn before the 4th dose on 04/25/18 @1930. Vancomycin goal trough is between <15-20 mcg/ml>. Pharmacy will follow and or advise on antibiotics use as needed. ANGEL PECK, PHARMD
--- NOTE | 2018-04-24 09:50 | NUR ---
PT BACK FROM MRI, AM MEAL PROVIDED AND PT STATES "OH YEAH AND MY IV GOT MESSED UP DOWN THERE SO I'M GONNA NEED A NEW SITE" PT INSTRUCTED TO CALL WHEN DONE EATING.
--- NOTE | 2018-04-24 10:20 | NUR ---
PT DONE EATING, NPO STATUS IMPLEMENTED AND PT AWARE ATTEMPTED IV ACCESS X2 WITH PT CURSING AND STATES FUCK THAT HURTS ETC... TELLS THIS NURSE TO STOP AND STATES I WANT A PICC LINE, THIS IS BULLSHIT I'M NOT GONNA KEEP GETTING FUCKING STUCK, EVERY TIME I HAVE TO HAVE SURGERY THEY PUT A PICC LINE IN" INFORMED PT HE CANNOT DEMAND A PICC LINE, WELL I'M REFUSING TO LET YOU STICK ME AGAIN, SO LET ME TALK TO THE DOCTOR, LACIE WEI INFORMED
--- NOTE | 2018-04-24 12:15 | NUR ---
COVERAGE GIVEN FOR ACCU CHECK, PT STATES HE TOOK 70/30 INSULIN WHILE IN PENITENTIARY, CALL GEORGE WITHIN REACH
--- NOTE | 2018-04-24 13:37 | NUR ---
PT AGREEABLE TO LETTING IVT NURSE ATTEMPT IV ACCESS, AWAITIGN NURSE TO BE AVAILABLE, NPO STATUS MAINTAINED, WILL CONTINUE TO MONITOR.
--- NOTE | 2018-04-24 15:04 | NUR ---
22G OBTAINED IN R FA ON FIRST ATTEMPT, GOOD ASPIRATE NOTED, IVF AND ABT RESTARTED ORDERED, PHARMACY AND MD AWARE OF MISSED DOSE OF ZOSYN AND LATE START FOR VANCO RELATED TO NO IV ACCESS.
--- NOTE | 2018-04-24 16:40 | NUR ---
TO OR VIA STRETCHER, 1800 DOSE OF ZOSYN SENT WITH STAFF.
--- NOTE | 2018-04-24 19:30 | NUR ---
REPORT RECEIVED FROM ABI CORNEJO. PT IS CURRENTLY IN OR.
--- NOTE | 2018-04-24 20:34 | NUR ---
PT ARRIVED TO UNIT VIA STRETCHER WITH OR STAFF. BEDSIDE REPORT RECEIEVED FROM ABI JACKSON. PT ASSISTED SELF TO BED; ALERT AND OREINTED. DENIES PAIN CURRENTLY. RESPIRATIONS EVEN AND UNLABORED ON ROOM AIR. FREQUENTLY REQUESTING FOOD. VS STABLE, LUNGS CLEAR. SPLINTED CAST PADDING TO LEFT FOOT WITH DENISSE WRAP AND ZAKIYA DRESSING WITH DENISSE WRAP TO RIGHT; CSM TO RIGHT GOOT GOOD, UNABLE TO ASSESS ON LEFT. BLE ELEVATED ON PILLOWS WITH ICE APPLIED. FSBG UPON ARRIVAL 202. PLAN OF CARE REVIEWED WITH PT. ENCOURAGED TO VERBALIZE CONCERNS. STATES UNDERSTANDING. SAFETY MEASURES IN PLACE. CALL LIGHT WITHIN REACH.
--- NOTE | 2018-04-24 23:04 | NUR ---
PT CURRENTLY ASLEEP WITH BLANKET OVER HIS HEAD. PT REMAINS SLIGHTLY HYPOTENSIVE; CURRENT BP 90/49. RESPIRATIONS EVEN AND UNLABORED WITH AUDIBLE BREATHING. IV FLUIDS INFUSING WITHOUT DIFFICLTY AT KVO; IV SITE APPEARS HEALTHY. CALL LIGHT WITHIN REACH.
--- NOTE | 2018-04-25 00:11 | NUR ---
ZOSYN INFUSING AT THIS TIME; PT REFUSED LIBRUM. CURRENTLY RESTING ON RIGHT SIDE; AWAKENS TO VERBAL STIMULI. ON BED REST; NWB PER SURGEON ORDERS. NO REQUESTS OR CONCERNS AT THIS TIME. SAFETY MEASURES IN PLACE. CALL LIGHT WITHIN REACH.
--- NOTE | 2018-04-25 03:59 | NUR ---
NO ACUTE CHANGES IN CONDITION SINCE ARRIVAL FROM OR. LEGS REMAIN ELEVATED WITH ICE. IS AT BEDSIDE. PT ASLEEP WITH NO SIGNS OF DISTRESS. RESPIRATIONS EVEN AND UNLABORED ON ROOM AIR. SAFETY MEASURES IN PLACE. CALL LIGHT WITHIN REACH.
[2018-04-25 04:21] VITALS: BP 131/81
[2018-04-25 05:44] LABS: ANION GAP 14 (6-22 (CALC)); BUN 11 mg/dL (9-20); BUN/CREATININE RATIO 16 (12-20 (CALC)); CARBON DIOXIDE 25 mmol/l (22-30); CHLORIDE 105 mmol/l (95-108); CREATININE 0.7 mg/dL (0.7-1.3); GFR > 60 ML/MIN (>=60 (CALC)); GFR FOR AFR.AMER. > 60 ML/MIN (>=60 (CALC)); MAGNESIUM 1.8 mg/dL (1.6-2.3); POTASSIUM 4.1 mmol/l (3.5-5.1); SODIUM 139 mmol/l (137-146)
--- NOTE | 2018-04-25 07:15 | NUR ---
REPORT RECEIVED FROM ABI RAI;PT APPEARS TO BE SLEEPING IN SUPINE POSITION WITH BLE ELEVATED ON X2 PILLOWS;NO S/S OF DISTRESS NOTED;RESPIRATIONS APPEAR EVEN AND UNLABORED ON RA;IV FLUIDS CONTINUE TO INFUSE TO RIGHT FOREARM WITH EASE;FALL PRECAUTIONS IN PLACE WITH BED IN THE LOWEST POSITION AND CALL LIGHT IN REACH;WILL CONTINUE TO MONITOR
[2018-04-25 08:15] VITALS: BP 136/86
--- NOTE | 2018-04-25 08:15 | NUR ---
PT RESTING IN SEMI FOWLERS POSITION,GUARDED;VS OBTAINED AND ASSESSMENT COMPLETED;PT DENIES ANY CURRENT PAIN TO BLE WHICH ARE POST OP DAY 1 I&D AND PARTIAL AMPUTEE,PAIN SCALE AND REPORTING EDUCATED;RESPIRATIONS EVEN AND UNLABORED ON RA,CLEAR LUNG SOUNDS NOTED;I.S. AT BEDSIDE AND PT DEMONSTRATED USE;EDUCATED ON USING 10X PER HOUR WHILE AWAKE;ABDOMEN SOFT ON PALPATION AND ACTIVE IN ALL 4 QUADRANTS;UNABLE TO PALPATE PEDAL PULSES DUE TO DRESSINGS;LEFT FOOT ELEVATED ON X2 PILLOWS AND DRESSED WITH A BULKY DRESSING WHICH IS CDI;RIGHT FOOT DRESSED WITH DENISSE DRESSING WHICH IS ALSO CDI AND ELEVATED ON X2 PILLOWS;PT ABLE TO MOVE TOES AND CAP REFILL LESS THAN 3 IN RIGHT FOOT.ICE PACKS PROVIDED;#22G TO RIGHT FOREARM INFUSING NS @ KVO PER ORDER,SITE APPEARS HEALTHY;ACCUCHECK WAS 369 THIS MORNING AND PT WAS COVERED WITH SLIDING SCALE NOVOLOG PER ORDER;FRESH WATER PROVIDED PER REQUEST;PT DENIES ANY ADDITIONAL NEEDS AT THIS TIME AND IS INSTRUCTED TO CALL FOR ASSISTAMCE IF NEEDED;FALL PRECAUTIONS IN PLACE WITH CALL LIGHT IN REACH;WILL CONTINUE TO MONITOR
--- NOTE | 2018-04-25 11:06 | NUR ---
PT USED CALL LIGHT TO CALL NURSE TO ROOM.PT STATES "I NEED TO KNOW WHAT THE HELL IS GOING ON. WHY ARENT THESE ABX RUNNING ALL THE TIME IF I SUPPOSEDLY HAVE THIS BAD BLOOD INFECTION"; NURSE ATTEMPTED TO EDUCATED PT ON ABX SCHEDULE BUT PT UNWILLING TO LISTEN; STATING "AND WHATS THE DEAL WITH MY HUMULIN"; NURSE EXPLAINED TO PT THAT [facility] HAS ORDERED LEVEMIR FOR EVENING COVERED BUT PT UNCOOPERATIVE STATING "IF YOU CANT TELL ME SHIT GET SOMEONE THAT CAN";LACIE LOPEZ,[facility] NOTIFIED.
--- NOTE | 2018-04-25 11:40 | NUR ---
PT COMPLAINS OF BLE PAIN RATING 7/10 ON THE PAIN SCALE AND REQUESTS PAIN MEDICATION;PT MEDICATED WITH PERCOCET 10/325MG TWO COMBO PO,WILL MONITOR FOR EFFECT;CONTINUED ENCOURAGEMENT TO ELEVATE BLE;RESPIRATIONS REMAIN EVEN AND UNLABORED ON RA;IV SITE TO RIGHT FOREARM INFUSING WITH EASE;PT REFUSED ACCUCHECK,ATTEMPTED TO RE-EDUCATED PT ON IMPORTANCE OF MONITORING BS AND RISK IF ELEVATED BLOOD SUGAR BECOME TO HIGH BUT CONTINUES TO REFUSE;ALL SAFETY PRECAUTIONS REINFORCED WITH FALL PRECAUTIONS IN PLACE;CALL LIGHT IN REACH;WILL CONTINUE TO MONITOR
[2018-04-25 11:43] VITALS: BP 138/88
--- NOTE | 2018-04-25 14:18 | NUR ---
AT BEDSIDE DISCUSSING POC.
[2018-04-25 15:00] VITALS: BP 142/86
--- NOTE | 2018-04-25 16:30 | NUR ---
PT CALLING NURSES STATION AND FAX MACHINE REPAIRER LOOKING FOR DIETARY;RANDOLPH ENTERED THE ROOM AND ASKED PT IF THERE IS ANYTHING I COULD DO TO HELP HIM;PT STATES "NO IM CALLING DIETARY",WRITTER INFORMED PT THAT TYPICALLY PATIENTS DONT CALL OUT TO DIETARY AND I COULD HELP HIM WITH WHATEVER HE NEEDED. PT STATES " NO THANK,IM FINE";WILL CONTINUE TO MONITOR
--- NOTE | 2018-04-25 16:35 | NUR ---
PT CALLED NURSE TO THE ROOM. UPON ENTERING THE ROOM PT STATES "WHY DO YOU NEED TO LOOK AT ME LIKE THAT?". I DID NOT UNDERSTAND PATIENTS QUESTION AND ASKED HIM WHAT WAS WRONG;PT STATED "IF I WANTED TO CALL DIETARY I WOULD,YOU LOOKED AT ME WEIRD";KAYCEEITTER ATTEMPTED TO EXPLAIN TO PT THAT PATIENTS USUALLY DO NOT CALL THE FORM SETTER/DRIVER LOOKING FOR DIETARY AND THAT I COULD HAVE HELPED HIM WITH WHATEVER HE NEEDED. PT UNCOOPERATIVE AT THIS TIME. LINO GLEASON AT BEDSIDE TO TAKE ACCUCHECK;WILL CONTINUE TO MONITOR
--- NOTE | 2018-04-25 16:49 | NUR ---
PATIENT STATED TO THIS STAFF THAT HE DIDN'T WANT NANCY TO BE HIS NURSE ANYMORE. HE WANT TO REQUEST A DIFFERENT NURSE, STAFF LET NURSE KNOW WHAT PATIENT STATED .
--- NOTE | 2018-04-25 19:00 | NUR ---
BEDSIDE REPORT RECEIVED FROM TAWANA CRUZ. PT RESTING IN BED SEMI FOWLERS; ALERT AND ORIENTED. C/O 5/10 PAIN TO BLE AND REQUESTS A PERCOCET WITH HIS HS MEDS. PT DECLINED ICE. DRESSINGS TO BLE ARE CDI WITH GOOD CSM TO R FOOT. RESPIRATIONS EVEN AND UNLABORED ON ROOM AIR. PT IS PLEASANT AND REQUESTS A SNACK WITH EVENING INSULIN. IS AT BEDSIDE AND ENCOURAGED. PLAN OF CARE REVIEWED. PT ENCOURAGED TO VERBALIZE CONCERNS. STATES UNDERSTANDING. SAFETY MEASURES IN PLACE. CALL LIGHT WITHIN REACH.
[2018-04-25 19:26] VITALS: BP 126/85
--- NOTE | 2018-04-25 21:00 | NUR ---
DR. CASTRO NOTIFED OF BLOOD SUGAR OF 344 WITH NO S/S COVERAGE AT HS AND PT REQUESTING SNACK. NEW ORDER FOR 10 UNITS OF NOVOLOG AT THIS TIME IN ADDITION TO LEVEMIR AND SNACK GIVEN. PT DECLINED LIBRIUM. CIWA NEGATIVE. NO OTHER REQUESTS FROM PT AT THIS TIME.
--- NOTE | 2018-04-25 21:10 | NUR ---
PT REQUESTED ASSISTANCE OPENING CONDEMENT PACKAGES BECAUSE HE HAS NO FEELING IN HIS LEFT HAND WHICH IS NOT NEW.
--- NOTE | 2018-04-25 23:53 | NUR ---
PT ASLEEP AT THIS TIME WITH NO SIGNS OF DISTRESS. RESPIRATIONS EVEN AND UNLABORED ON ROOM AIR. ZOSYN INFUSING AT THIS TIME WITHOUT DIFFICULTY; IV SITE APPEARS HEALTHY. PT REMAINS NWB AND REPOSITIONS SELF IN BED. DRESSINGS TO BLE REMAIN CDI. SAFETY MEASURES IN PLACE. CALL LIGHT WITHIN REACH.
[2018-04-26 02:46] LABS: HEMATOCRIT 31.6 % (39.0-50.0); HEMOGLOBIN 10.4 g/dl (14.0-18.0); MEAN CELL VOLUME 92.7 fL CALC (80.0-100.0); MEAN CORPUSCULAR HGB 30.5 pG CALC (26.0-32.0); MEAN CORPUSCULAR HGB CONC 32.9 g/L CALC (32.0-36.0); RED BLOOD COUNT 3.41 mill/uL (4.70-6.10); RED CELL DISTRI WIDTH 13.2 % (11.5-15.5)
[2018-04-26 03:39] LABS: ANION GAP 8 (6-22 (CALC)); BUN 11 mg/dL (9-20); BUN/CREATININE RATIO 19 (12-20 (CALC)); CARBON DIOXIDE 31 mmol/l (22-30); CHLORIDE 106 mmol/l (95-108); CREATININE 0.6 mg/dL (0.7-1.3); GFR > 60 ML/MIN (>=60 (CALC)); GFR FOR AFR.AMER. > 60 ML/MIN (>=60 (CALC)); POTASSIUM 4.8 mmol/l (3.5-5.1); SODIUM 141 mmol/l (137-146)
--- NOTE | 2018-04-26 04:12 | NUR ---
NO ACUTE CHANGES IN CONDITION THROUGHOUT THE NIGHT. PT STATES THAT HE HAS MINIMAL PAIN, BUT DOES NOT WANT ANY PAIN MEDICATION AT THIS TIME. ENCOURAGED TO ASK FOR MEDICATION WHEN HE WANTS IT. ENCOURAGED TO USE IS AT BEDSIDE. BLOOD SUGAR CHECKED AT 0300 PER PT REQUEST; SLIGHTLY ELEVATED. CALL LIGHT WITHIN REACH.
[2018-04-26 04:13] VITALS: BP 96/58
[2018-04-26 07:23] VITALS: BP 114/75
--- NOTE | 2018-04-26 07:23 | NUR ---
PT RESTING IN BED, NO SIGNS OF DISTRESS NOTED, RESP EVEN AND UNLABORED. PT ALERT AND ORIENTED X3, NOTED EDEMA TO RLE TOES, CAPILLARY REFILL BRISK, WARM TO TOUCH. UNABLE TO ASSESS PEDAL PULSES DUE TO DRESSINGS. DRESSINGS BILAT CDI. DISCUSSED POC, VSS, PT REFUSED LISINOPRIL AND NOVOLOG BUT AGREED TO LEVEMIR. IS AT BEDSIDE, EDUCATED AND ENCOURAGED ITS USE. ASSESSMENT COMPLETED. CALL LIGHT IN REACH,CONTINUE TO MONITOR.
--- NOTE | 2018-04-26 08:11 | NUR ---
S: TONIO BARROSO is a 42 M who presents with right foot cellulitis. He has a history of cellulitis due to uncontrolled diabetes. All medications in patient's chart were reviewed. O: VS: BP 145/65, 75, RR 18, T 97.6 W 72.7 kg, HT72'', Scr=0.6 ,CrCl= >100ml/min A: Blood culture gram + cocci which is sensitive to pending. wound culture show MSSA which is sensitive to SEE report. P: Patient is on Vancomycin and Zosyn Change Vancomycin dose to 1gm IV Q 8 H Vancomycin trough is drawn before the 4th dose on 04/27/18 at 0600. Vancomycin goal trough is between <15-20 mcg/ml>. Pharmacy will follow and or advise on antibiotics use as needed.
--- NOTE | 2018-04-26 10:09 | NUR ---
AT BEDSIDE FOR DRESSING CHANGE,STERILE SALINE AND BETADINE PROVIDED.
--- NOTE | 2018-04-26 11:08 | NUR ---
SUPERVISOR SHOP AT BEDSIDE
[2018-04-26 11:37] VITALS: BP 103/66
[2018-04-26 15:00] VITALS: BP 117/79
--- NOTE | 2018-04-26 16:08 | NUR ---
PT RESTING IN BED, NO SIGNS OF DISTRESS NOTED, RESP EVEN AND UNLABORED. CALL LIGHT IN REACH,CONTINUE TO MONITOR.
--- NOTE | 2018-04-26 17:26 | NUR ---
PT MEDICATED FOR PAIN, PT ON THE PHONE STATING,"FUCK MY LIFE"..."IF THE STATE PICKS UP THE CASE I'M GOING TO END IT ALL". PT STATES HE KNOWS THAT THE LOSS OF HIS TOES AND RESULTS OF HIS SURGERY IS HIS DOING DUE TO BEING NON-COMPLIANT.
[2018-04-26 18:39] VITALS: BP 118/79
--- NOTE | 2018-04-26 19:00 | NUR ---
BEDSIDE REPORT RECEIVED FROM TAWANA VALLADARES. PT SITTING UP IN BED; ALERT AND ORIENTED. C/O MODERATE PAIN TO BILATERAL FEET, ESPECIALLY RIGHT R/T DRESSING CHANGE PERFORMED BY MD TODAY. RESPIRATIONS EVEN AND UNLABORED ON ROOM AIR. PLAN OF CARE REVIEWED. PT ENCOURAGED TO VERABLIZE CONCERNS. STATES UNDERSTANDING. SAFETY MEASURES IN PLACE. CALL LIGHT WITHIN REACH.
--- NOTE | 2018-04-26 22:41 | NUR ---
PERCOCET GIVEN AT HS; PT DECLINED HS LEVEMIR R/T BLOOD SUGARS BRING 74 AND 81 AFTER SNACK. WILL CONTINUE TO MONTIOR ACCU CHECKS. DRESSINGS TO BLE CDI; TOES TO RIGHT FOOT MOVE AND HAVE GOOD BLOOD RETURN; PT CANNOT FEEL NURSE TOUCHING TOES; WILL CONTINUE TO MONITOR CSM TO EXTREMITIES. ELEVATED ON PILLOWS.
--- NOTE | 2018-04-27 00:36 | NUR ---
PT ASLEEP AT THIS TIME WITH NO SIGNS OF DISTRESS. RESPIRATIONS EVEN AND UNLABORED ON ROOM AIR. IV FLUIDS INFUSING WITHOUT DIFFICULTY; IV SITE APPEARS HEALTHY. NWB TO BLE AND USES URINAL AT BEDSIDE. SAFETY MEASURES IN PLACE. CALL LIGHT WITHIN REACH.
[2018-04-27 04:13] VITALS: BP 99/61
--- NOTE | 2018-04-27 04:35 | NUR ---
NO ACUTE CHANGES IN CONDITION THROUGHOUT THE NIGHT. SAFETY MEASURES IN PLACE. CALL LIGHT WITHIN REACH.
--- NOTE | 2018-04-27 04:56 | NUR ---
IV TUBING REPLACED. PT REPORTS BLE PAIN 5/10; STATES THAT HE WANTS TO WAIT TO TAKE PAIN MEDICATION WITH HIS BREAKFAST.
--- NOTE | 2018-04-27 07:44 | NUR ---
ASSESSMENT IS COMPLETED: IV SITE IS FREE FROM REDNESS OR EDEMA. NO DISTRESS NOTED. HR IS REG,PULSES ARE STRONG X4, ABD IS SOFT WITH ACTIVE BS. BREATH SOUNDS ARE CLEAR, BILATERALLY. DRESSING ON BILATERAL FEET ARE CDI. CALL GEORGE WITHIN REACH. PT IS WANTING TO GET HIS MEALS CHANGED FROM DIABETIC TO REGULAR. INFORMED HE NEEDS TO SPEAK WITH THE .
[2018-04-27 07:45] VITALS: BP 116/80
[2018-04-27 12:00] VITALS: BP 112/79
--- NOTE | 2018-04-27 12:30 | NUR ---
PT IS RELAXING IN BED WITH NO DISTRESS NOTED. IV SITE IS FREE FROM REDNESS OR EDEMA.
[2018-04-27 15:40] VITALS: BP 113/75
--- NOTE | 2018-04-27 16:30 | NUR ---
PT IS RELAXING AND VISITING WITH FRIENDS. NO DISTRESS NOTED. IV SITE IS FREE FROM REDNESS OR EDEMA.
--- NOTE | 2018-04-27 19:00 | NUR ---
BEDSIDE REPORT RECEIVED FROM TAWANA SYED. PT SITTING UP IN BED; ALERT AND ORIENTED. C/O MILD PAIN TO BILATERAL FEET AND REQUESTS PERCOCET AT HS. RESPIRATIONS EVEN AND UNLABORED ON ROOM AIR. PLAN OF CARE DISCUSSED INCLUDING ORDERS FOR ANOTHER I&D TO RIGHT FOOT WITH WOUND VAC AT 1630 AND NPO DIET AFTER BREAKFAST. PT ENCOURAGED TO VERBALIZE CONCERNS. STATES UNDERSTANDING. SAFETY MEASURES IN PLACE. CALL LIGHT WITHIN REACH.
[2018-04-27 20:00] VITALS: BP 105/73
--- NOTE | 2018-04-27 20:00 | NUR ---
WHEN ASKED ABOUT HIS BOWEL MOVEMENTS PT REPORTS THAT YESTERDAY AFTERNOON HE AMBULATED TO THE BATHROOM TO USE THE TOILET. NURSE REMINDED PT THAT HE IS NON WEIGHT BEARING ON BOTH FEET AND HE STATES, "I KNOW, BUT WHEN YOU HAVE TO GO YOU HAVE TO GO. I WAS CAREFUL AND TRIED TO WALK ON MY HEELS." PT ENCOURAGED TO USE CALL LIGHT FOR ASSISTANCE IF HE NEEDS TO GET OUT OF BED. PT STATES UNDERSTANDING.
[2018-04-28] VITALS (11 sets, daily range): BP systolic 101–143; BP diastolic 60–90
--- NOTE | 2018-04-28 | NUR ---
PT ALEEP AT THIS TIME WITH NO SIGNS OF DISTRESS. RESPIRATIONS EVEN AND UNLABORED ON ROOM AIR. IV FLUIDS INFUSING WITHOUT DIFFICULTY; IV SITE APPEARS HEALTHY. PT USING BEDSIDE URINAL TO VOID; REPOSITIONS SELF IN BED. LOWER EXTREMITIES ELEVATED ON PILLOWS. ENCOURAGED TO USE IS. SAFETY MEASURES IN PLACE. CALL LIGHT WITHIN REACH.
--- NOTE | 2018-04-28 04:12 | NUR ---
NO ACUTE CHANGES IN CONDITION THROUGHOUT THE NIGHT. AWAKENS SPONTANEOUSLY. NO REQUESTS OR CONCERNS AT THIS TIME. SAFETY MEASURES IN PLACE. CALL LIGHT WITHIN REACH.
[2018-04-28 05:21] LABS: HEMATOCRIT 35.8 % (39.0-50.0); HEMOGLOBIN 11.4 g/dl (14.0-18.0); IMMATURE GRANULOCYTES 0.3 % (0.0-5.0); MEAN CELL VOLUME 94.2 fL CALC (80.0-100.0); MEAN CORPUSCULAR HGB CONC 31.8 g/L CALC (32.0-36.0); RED CELL DISTRI WIDTH 13.4 % (11.5-15.5)
[2018-04-28 05:48] LABS: ANION GAP 11 (6-22 (CALC)); BUN 12 mg/dL (9-20); BUN/CREATININE RATIO 20 (12-20 (CALC)); CARBON DIOXIDE 32 mmol/l (22-30); CHLORIDE 107 mmol/l (95-108); CREATININE 0.6 mg/dL (0.7-1.3); GFR > 60 ML/MIN (>=60 (CALC)); GFR FOR AFR.AMER. > 60 ML/MIN (>=60 (CALC)); POTASSIUM 4.7 mmol/l (3.5-5.1); SODIUM 145 mmol/l (137-146)
[2018-04-28 05:50] LABS: PLATELET COUNT 399 thou/uL (130-400)
[2018-04-28 05:51] LABS: MANUAL DIFFERENTIAL YES
[2018-04-28 05:52] LABS: HYPOCHROMIA FEW; MICROCYTOSIS FEW; TOXIC GRANULATION RARE
[2018-04-28 05:53] LABS: PLATELET ESTIMATE NORMAL
--- NOTE | 2018-04-28 07:15 | NUR ---
PT LAYING IN BED WITH EYES OPEN, RESP EVEN AND UNLABORED; EMPTIED 900 CC CLEAR YELLOW URINE FROM URINAL. WILL CONTINUE TO MONITOR.
--- NOTE | 2018-04-28 07:40 | NUR ---
ASSESSMENT COMPLETED; PT LAYING IN BED CONVERSING, VERY PLEASANT; INFORMED HIM OF SURGERY TODAY; IV RFA PATENT, NS KVO 20CC/HR; DRESSING TO BILAT LEGS CDI; NO DISTRESS NOTED WILL CONTINUE TO MONITOR.
--- NOTE | 2018-04-28 08:07 | NUR ---
BERE/OR CALLED SAID DR MARTINEZ WILL BE IN TO DO SURGERY ON PT; PT NEEDS TO BE NPO AFTER BREAKFAST.
--- NOTE | 2018-04-28 09:32 | NUR ---
PT MEDICATED PER EMAR, REFUSED LISINPRIL; NO S/S OF DISTRESS NOTED. PT REQUEST THAT WE KEEP HIS SUPPER TRAY IN HIS ROOM. PT NOW NPO FOR POSSIBLE SURGERY THIS AFTERNOON. WILL CONTINUE TO MONITOR.
--- NOTE | 2018-04-28 11:56 | NUR ---
PT LAYING IN BED WITH EYES CLOSED, RESP EVEN AND UNLABORED; NO S/S OF DISTRESS NOTED; PT NPO.
--- NOTE | 2018-04-28 15:44 | NUR ---
PT LEFT FOR OR VIA STRETCHER IN STABLE CONDITION, ACCOMPANIED BY TWO STAFF MEMBERS.
--- NOTE | 2018-04-28 17:54 | NUR ---
PT ARRIVED VIA STRETCHER FROM OR ACCOMPAINED BY [facility], IN STABLE CONDITION; DRESSING TO BILAT LEGS CDI; RIGHT LEG ELEVATED ON A PILLOW AND ICE PACK APPLIED; WOUND VAC INTACT AND PATENT SM AMT OF BLOODY DRAINAGE IN WOUND VAC; IV KVO 20CC/HR NS INFUSING WITH EASE, SITE APPEARS HEALTHY; PT EDUCATED THE IMPORTANCE OF NO WT BEARING, PT VERBALIZED UNDERSTANDING. VITALS STABLE; SET PT UP FOR SUPPER. NO S/S OF DISTRESS NOTED. CALL LIGHT AND URINAL IN REACH; WILL CONTINUE TO MONITOR.
--- NOTE | 2018-04-28 20:00 | NUR ---
PT REQUESTING TO USE BEDSIDE COMMODE. EXPLAINED TO PT THAT HE IS NON WEIGHT BEARING AND THAT IT WOULDNT BE SAFE TO TRANSFER HIM AFTER SURGERY ON FEET. PT DISAGREED BECAUSE HE STATED "A GROWN MAN SHOULDNT HAVE TO LET SOMEONE WIPE THEIR BEHIND". PT REFUSED BED WING BUT LATER AGREED. PT TOLERATED MEDS WELL FOR PAIN. PERCOCET WAS EFFECTIVE. BS COVERED ACCORDINGLY PER ORDERS.
[2018-04-29] VITALS (7 sets, daily range): BP systolic 118–157; BP diastolic 51–100
--- NOTE | 2018-04-29 | NUR ---
PT RESTING IN BED WATCHING TV.. NO COMPLAINTS OF PAIN OR DISTRESS NOTED. DRG CDI BILATERAL FEET. BED IN LOWEST POSITION. CALL LIGHT WITHIN REACH.
--- NOTE | 2018-04-29 08:20 | NUR ---
ASSESSMENT IS COMPLETED: IV SITE IS FREE FROM REDNESS OR EDEMA. HR IS REG,PULSES ARE STRONG X4,ABD IS SOFT WITH ACTIVE BS. BREATH SOUNDS ARE CLEAR, BILATERALLY. DRESSING ON BILATERAL FEET ARE CDI/ WOUND VAC IN PLACE ON THE R FOOT. CONTINUE TO OSBERVE AND MONITOR.
--- NOTE | 2018-04-29 12:30 | NUR ---
PT IS RELAXING IN BED WITH NO DISTRESS NOTED. IV SITE IS FREE FROM REDNESS OR EDEMA. CONTINUE TO OSBERVE AND MONITOR.
--- NOTE | 2018-04-29 16:45 | NUR ---
PT IS RELAXING HAS BEEN VISITING WITH FAMILY IV SITE IS FREE FROM REDNESS OR EDEMA. CONTINUE TO OSBERVE AND MONITOR.
--- NOTE | 2018-04-29 19:00 | NUR ---
BEDSIDE REPORT RECIEIVED FROM TAWANA SYED. PT SITTING UP IN BED SPEAKING ON PHONE. C/O MILD PAIN TO RIGHT FOOT; REQUESTS PAIN MEDICATION AT HS. RESPIRATIONS EVEN AND UNLABORED ON ROOM AIR. WOUND VAC IN PLACE TO RIGHT FOOT; CONTINUOUS SUCTION AT 125 MMHG; SMALL AMOUNT OF SANGINOUS DRIANAGE. DRESSING TO BLE CDI. PLAN OF CARE REVIEWED. PT ENCOURAGED TO VERBALIZE CONCERNS. STATES UNDERSTANDING. SAFETY MEASURES IN PLACE. CALL LIGHT WITHIN REACH.
--- NOTE | 2018-04-30 00:38 | NUR ---
PT ASLEEP AT THIS TIME WITH NO SIGNS OF DISTRESS. RESPIRATIONS EVEN AND UNLABORED ON ROOM AIR. IV FLUIDS INFUSING WITHOUT DIFFICULTY; IV SITE APPEARS HEALTHY. PT USING URINAL TO VOID AND ASSISTING SELF TO BSC WITH SUPERVISION; PT AWARE THAT HE CONTINUES TO REMAIN NWB TO BILATERAL FEET. SAFETY MEASURES IN PLACE. CALL LIGHT WITHIN REACH.
[2018-04-30 03:28] VITALS: BP 126/85
--- NOTE | 2018-04-30 04:21 | NUR ---
ATTEMPTED TO REPLACED PT'S IV SITE X 2 WITH NO SUCCESS. PT DECLINED FURTHER ATTEMPTES AND STATES THAT HE WANTS HIS CURRENT IV SITE TO REMAIN IN PLACE TO RFA. PT C/O BLE PAIN 12/14, BUT DECLINED PAIN MEDICATION AT THIS TIME STATING THAT HE WILL TRY TO WAIT UNTIL BREAKFAST TO TAKE SOMETHING. NO ACUTE CHANGES IN CONDITION THROUGHOUT THE NIGHT. WOUND VAC CONTINUES TO DRAIN, NO ADDITIONAL DRAINAGE NOTED SINCE START OF SHIFT. PT DID HAVE ONE EPIDSODE OF URINARY INCONTINCE THIS SHIFT. SAFETY MEASURES IN PLACE. CALL LIGHT WITHIN REACH.
[2018-04-30 05:35] LABS: HEMATOCRIT 32.4 % (39.0-50.0); HEMOGLOBIN 10.4 g/dl (14.0-18.0); IMMATURE GRANULOCYTES 0.4 % (0.0-5.0); MEAN CORPUSCULAR HGB 30.5 pG CALC (26.0-32.0); MEAN CORPUSCULAR HGB CONC 32.1 g/L CALC (32.0-36.0); NEUT# 2.62 thou/uL (1.82-7.42); RED BLOOD COUNT 3.41 mill/uL (4.70-6.10); RED CELL DISTRI WIDTH 13.5 % (11.5-15.5)
[2018-04-30 05:40] LABS: ALBUMIN 2.8 g/dL (3.2-5.0); ALKALINE PHOSPHATASE 82 u/l (38-126); ANION GAP 9 (6-22 (CALC)); BUN 13 mg/dL (9-20); BUN/CREATININE RATIO 25 (12-20 (CALC)); CARBON DIOXIDE 31 mmol/l (22-30); CHLORIDE 107 mmol/l (95-108); CREATININE 0.5 mg/dL (0.7-1.3); GFR > 60 ML/MIN (>=60 (CALC)); GFR FOR AFR.AMER. > 60 ML/MIN (>=60 (CALC)); MAGNESIUM 1.8 mg/dL (1.6-2.3); POTASSIUM 4.5 mmol/l (3.5-5.1); SODIUM 142 mmol/l (137-146); TOTAL PROTEIN 5.6 g/dL (6.3-8.2)
[2018-04-30 05:44] LABS: SGOT/AST 33 u/l (17-59)
[2018-04-30 08:22] VITALS: BP 123/71
--- NOTE | 2018-04-30 08:22 | NUR ---
PT ASSESSMENT COMPLETE. A/O X3. SPEECH IS CLEAR. RESP EVEN AND UNLABORED. LUNG SOUNDS CLEAR. BOWEL SOUNDS ACTIVE X4. STRONG RADIAL PULSES. UNABLE TO ASSESS PEDAL PULSES DUE TO BILATERAL DRESSINGS TO RT LOWER EXTREMITIES,CDI. <3 CAP REFILL TO RT TOES. WOUND VAC TO LT FOOT. NON WEIGHT BEARING TO BLE. CONTINUOUS SUCTION @125 MMHG. DRAINING SANGUINOUS FLUID. BLE ELEVATED. #22 RW NS @KVO. SITE APPEARS HEALTHY. NICOTINE PATCH IN PLACE. BSC NEAR BED.PLAN OF CARE DISCUSSED. CALL LIGHT IN REACH. WILL CONTINUE TO MONITOR
[2018-04-30 08:53] VITALS: BP 138/82
[2018-04-30 11:33] VITALS: BP 113/65
--- NOTE | 2018-04-30 13:07 | NUR ---
PT STATES RT FOOT DULL PAIN HAS DECREASED TO A 5 OUT OF 10 ON PAIN SCALE. LEGS ELEVATED. PT DENIES ANY FURTHER NEEDS. WILL CONTINUE TO MONITOR
[2018-04-30 15:30] VITALS: BP 112/65
--- NOTE | 2018-04-30 16:40 | NUR ---
PT WATCHING TELEVISION. NO S/S OF DISTRESS. RESP EVEN AND UNLABORED PT DENIES ANY PAIN. LEGS ELEVATED. WOUND VAC IN PLACE, DRAINING FREELY. CALL LIGHT IN REACH. WILL CONTINUE TO MONITOR.
--- NOTE | 2018-04-30 17:54 | NUR ---
PT C/O DULL RT FOOT PAIN 6 OUT OF 10 ON PAIN SCALE. LEGS ELEVATED. OFFERED PT ICE FOOT BLE. PT REFUSED. PT DENIES ANY FURTHER NEEDS. CALL LIGHT IN REACH. WILL CONTINUE TO MONITOR
--- NOTE | 2018-04-30 18:32 | NUR ---
PT STATES RT FOOT PAIN HAS DECREASED TO A 5 OUT OF 10 ON PAIN SCALE. LEGS ELEVATED. PT DENIES ANY FURTHER NEEDS. WILL CONTINUE TO MONITOR.
[2018-04-30 18:44] VITALS: BP 105/69
[2018-05-01] VITALS: BP 119/65
--- NOTE | 2018-05-01 00:18 | NUR ---
PT REPORTED FEELING LIKE HIS BLOOD SUGAR WAS LOW; FINGER STICK CHECKED AT 2320 AND WAS 48. SNACK GIVEN WITH F/U SUGAR OF 103. WILL CONTINUE TO MONITOR FOR SIGNS OF HYPOGLYCEMIA AND PT EDUCATED ON S/S.
[2018-05-01 04:02] VITALS: BP 113/72
--- NOTE | 2018-05-01 04:20 | NUR ---
LOW BLOOD SUGAR THE ONLY CHANGE THROUGHOUT THE NIGHT. IV FLUIDS INFUSING WITHOUT DIFFICULTY; IV SITE APPEARS HEALTHY. DRESSINGS TO BLE ARE CDI AND WOUND VAC REMAINS TO RIGHT FOOT; CONTINUOUS SUCTION AT 125MMHG. PT TRANSFERED TO BS FOR EARLIER THIS SHIFT. NO REQUESTS OR CONCERNS AT THIS TIME. SAFETY MEASURES IN PLACE. CALL LIGHT WITHIN REACH.
[2018-05-01 08:40] VITALS: BP 141/76
--- NOTE | 2018-05-01 08:40 | NUR ---
ASSESSMENT IS COMPLETED: IV SITE IS FREE FROM REDNESS OR EDEMA. HR IS REG,PULSES ARE STRONG X4, ABD IS SOFT WITH ACTIVE BS. BREATH SOUNDS ARE CLEAR, BILATERALLY. DRESSING ON LEFT AND RIGHT FOOT ARE CDI. WOUND VAC IN PLACE.
[2018-05-01] MEDS ORDERED: PERCOCET 10/31 COMBO PO (10:51)
[2018-05-01] MEDS ORDERED: LISINOPRIL20 M1 PO (10:51)
[2018-05-01] MEDS ORDERED: ZESTRIL10 M1 PO (10:53)
[2018-05-01] MEDS ORDERED: ROCEPHIN 2 GM2 GM IM (10:53)
[2018-05-01] MEDS ORDERED: ROCEPHIN 2 GM2 GM IV (10:56)
[2018-05-01 11:40] VITALS: BP 141/85
[2018-05-01] MEDS ORDERED: NOVOLIN 70/30 SC (12:29)
--- NOTE | 2018-05-01 12:30 | NUR ---
PT IS RELAXING IN BED WITH NO DISTRESS NOTED. IV SITE IS FREE FROM REDNESS OR EDEMA.
[2018-05-01 16:05] VITALS: BP 122/71
--- NOTE | 2018-05-01 18:39 | NUR ---
DISCHARGE INSTRUCTIONS, WC, BELONGINGS FOR THE WOUND VAC, ALL MEDICATIONS GIVEN TO FAMILY AND PT. IV SITE DISCONTINEUD CATHETER INTACT. Discharge instructions given. Patient verbalizes understanding of same. Discharged in stable condition via Wheelchair to Home with family. All belongings sent with pt.
== END 2018-05-01 18:26 | disposition home or self-care (01) | DRG 617 ==
LOC: ED 17:37 → ED-I 19:27 → ED 20:05 → MS2 20:06
PROVIDERS: Family Medicine; Internal Medicine; Nurse Practitioner Family; ADMIT Internal Medicine Nephrology; ATTEND Internal Medicine Nephrology
PROC: 0Y6N0Z9 Detachment at Left Foot, Partial 1st Ray, Open Approach (ICD-10-PCS; principal; 2018-04-24)
PROC: 0Y6N0ZB Detachment at Left Foot, Partial 2nd Ray, Open Approach (ICD-10-PCS; 2018-04-24)
PROC: 0Y6N0ZC Detachment at Left Foot, Partial 3rd Ray, Open Approach (ICD-10-PCS; 2018-04-24)
PROC: 0Y6N0ZD Detachment at Left Foot, Partial 4th Ray, Open Approach (ICD-10-PCS; 2018-04-24)
PROC: 0Y6N0ZF Detachment at Left Foot, Partial 5th Ray, Open Approach (ICD-10-PCS; 2018-04-24)
PROC: 0L8P0ZZ Division of Left Lower Leg Tendon, Open Approach (ICD-10-PCS; 2018-04-24)
PROC: 0J9Q0ZZ Drainage of Right Foot Subcutaneous Tissue and Fascia, Open Approach (ICD-10-PCS; 2018-04-24)
PROC: 0J9Q0ZZ Drainage of Right Foot Subcutaneous Tissue and Fascia, Open Approach (ICD-10-PCS; 2018-04-28)
DX: E11.69 Type 2 diabetes mellitus with other specified complication (principal); M86.172 Other acute osteomyelitis, left ankle and foot; M86.672 Other chronic osteomyelitis, left ankle and foot; L97.528 Non-pressure chronic ulcer of other part of left foot with other specified severity; L97.518 Non-pressure chronic ulcer of other part of right foot with other specified severity; L03.116 Cellulitis of left lower limb; L03.115 Cellulitis of right lower limb; L02.611 Cutaneous abscess of right foot; E87.4 Mixed disorder of acid-base balance; R78.81 Bacteremia; F10.239 Alcohol dependence with withdrawal, unspecified; M86.171 Other acute osteomyelitis, right ankle and foot; M86.671 Other chronic osteomyelitis, right ankle and foot; N17.9 Acute kidney failure, unspecified; E11.621 Type 2 diabetes mellitus with foot ulcer; T38.3X6A Underdosing of insulin and oral hypoglycemic [antidiabetic] drugs, initial encounter; E11.628 Type 2 diabetes mellitus with other skin complications; E11.65 Type 2 diabetes mellitus with hyperglycemia; I10 Essential (primary) hypertension; F10.229 Alcohol dependence with intoxication, unspecified; E11.40 Type 2 diabetes mellitus with diabetic neuropathy, unspecified; F60.1 Schizoid personality disorder; F15.10 Other stimulant abuse, uncomplicated; F17.210 Nicotine dependence, cigarettes, uncomplicated; F19.10 Other psychoactive substance abuse, uncomplicated; R63.4 Abnormal weight loss; B95.61 Methicillin susceptible Staphylococcus aureus infection as the cause of diseases classified elsewhere; Z59.0 Homelessness; Z91.120 Patient's intentional underdosing of medication regimen due to financial hardship; Z89.421 Acquired absence of other right toe(s); Z89.412 Acquired absence of left great toe; Z89.422 Acquired absence of other left toe(s); Z79.4 Long term (current) use of insulin; Z91.11 Patient's noncompliance with dietary regimen; Z68.21 Body mass index [BMI] 21.0-21.9, adult
CPT/HCPCS: A9579; J1650; J3370

== ENCOUNTER 2018-05-05 06:24 | Emergency (ER) | payer OTHER ==
[~2018-05-05] VITALS: Ht 182.9 cm; Wt 86.0 kg
[~2018-05-05 06:24] MED LIST changes: +LISINOPRIL20 M1 PO; +PERCOCET 10/31 COMBO PO; +ROCEPHIN 2 GM2 GM IM; +ROCEPHIN 2 GM2 GM IV; +ZESTRIL10 M1 PO
[2018-05-05 07:04] LABS: URINE BILIRUBIN - DIPSTICK NEGATIVE (NEGATIVE); URINE BLOOD DIPSTICK NEGATIVE (NEGATIVE); URINE CLARITY SL CLOUDY; URINE COLOR YELLOW; URINE GLUCOSE - DIPSTICK >=1000 mg/dL (NEGATIVE); URINE KETONE 15 mg/dL (NEGATIVE); URINE LEUK ESTERASE NEGATIVE (NEGATIVE); URINE NITRITE - DIPSTICK NEGATIVE (Negative); URINE PH 7.5 (4.5-8.0); URINE PROTEIN - DIPSTICK NEGATIVE (NEG-TRACE); URINE SPECIFIC GRAVITY 1.015; URINE UROBILINOGEN - DIPSTICK 0.2 E.U./dL (0.2)
[2018-05-05 07:29] LABS: HEMATOCRIT 34.5 % (39.0-50.0); HEMOGLOBIN 11.5 g/dl (14.0-18.0); IMMATURE GRANULOCYTES 0.2 % (0.0-5.0); MEAN CORPUSCULAR HGB 30.7 pG CALC (26.0-32.0); MEAN CORPUSCULAR HGB CONC 33.3 g/L CALC (32.0-36.0); NEUT# 6.79 thou/uL (1.82-7.42); RED BLOOD COUNT 3.75 mill/uL (4.70-6.10); RED CELL DISTRI WIDTH 13.2 % (11.5-15.5)
[2018-05-05 07:32] LABS: BARBITURATES NEGATIVE (NEGATIVE); COCAINE NEGATIVE (NEGATIVE); METHADONE NEGATIVE (NEGATIVE); OXCYCODONE NEGATIVE (NEGATIVE); TETRAHYDROCANNABIONOL NEGATIVE (NEGATIVE); TRICYLIC ANTIDEPRESSANTS NEGATIVE (NEGATIVE)
[2018-05-05 07:46] LABS: ANION GAP 22 (6-22 (CALC)); BILIRUBIN, TOTAL 0.5 mg/dL (0.0-1.4); BUN 15 mg/dL (9-20); BUN/CREATININE RATIO 26 (12-20 (CALC)); CARBON DIOXIDE 27 mmol/l (22-30); CHLORIDE 95 mmol/l (95-108); CREATININE 0.6 mg/dL (0.7-1.3); GFR > 60 ML/MIN (>=60 (CALC)); GFR FOR AFR.AMER. > 60 ML/MIN (>=60 (CALC)); POTASSIUM 4.8 mmol/l (3.5-5.1); SGOT/AST 22 u/l (17-59); SODIUM 140 mmol/l (137-146)
[2018-05-05 07:49] LABS: ALBUMIN 4.4 g/dL (3.2-5.0); ALKALINE PHOSPHATASE 131 u/l (38-126); TOTAL PROTEIN 7.7 g/dL (6.3-8.2)
[2018-05-05] MEDS ORDERED: LOMOTIL2.5 MG PO (09:10)
[2018-05-05 10:17] LABS: C. DIFFICILE TOXIN A&B NEGATIVE (NEGATIVE)
--- NOTE | 2018-05-05 14:28 | NUR ---
LYSSA saw the patient in room 9 of the ED at the request of nursing. CM entered the room and was greeted by the patient in a drowsy state. CM advised him the wound vac cannot be taken off or clamped with vac off. CM further advised him to remain at his mother's home until the wounds are healed or at least until he is able to walk. Patient voiced understanding by saying" I know". CM also advised him to stop the meth and alcohol as it will affect the healing process and again he voiced"I know". LYSSA informed him he has an appointment in [place] tomorrow morning at 1145 with , he voiced appreciation. CM discovered his mother not answering repeated calls and asked the patient if pamela was at home. He voiced" probably, I don't know". Patient becoming agitated with the conversation and questions. CM advised a home vist will be occurring xavi few minutes to retreave the wound vac pump, he voiced "ok". LYSSA then left his room and proceded to the mother's address at [address] [place], [place] [address]in [place]. CM arrived at the single story ground level without steps duplex and knocked on the door 4 times. The patient's mother Keely Aragon answered the door and was looking as though she had been sleeping. LYSSA apologized for the unannounced vist and advised her the hospital had been calling multiple times with no answer. She stated she was asleep. CM informed her the wound vac pump was needed and did she know its location. She stated "I'm not sure, lets go look in the car". LYSSA and the mother went to the car parked in front of the duplex and located the pump and iap displays analyst in the front passenger floor board. CM voiced appreciation and left with same and returned to the ED where it was handed to the nurse caring for the patient. CM provided the date,time and contact information for his appointment with to the nurse caring for the patient, then exited the ED.
[2018-05-05 15:14] VITALS: BP 155/85
== END 2018-05-05 15:40 | disposition home or self-care (01) ==
LOC: ED 06:24
PROVIDERS: Family Medicine
DX: R19.7 Diarrhea, unspecified (principal); E11.65 Type 2 diabetes mellitus with hyperglycemia; E11.621 Type 2 diabetes mellitus with foot ulcer; L97.519 Non-pressure chronic ulcer of other part of right foot with unspecified severity; Z79.4 Long term (current) use of insulin; F10.10 Alcohol abuse, uncomplicated; F15.10 Other stimulant abuse, uncomplicated; F17.210 Nicotine dependence, cigarettes, uncomplicated; R10.33 Periumbilical pain; R11.0 Nausea; R00.0 Tachycardia, unspecified

== ENCOUNTER 2018-05-07 09:14 | Emergency (ER) | payer OTHER ==
[~2018-05-07] VITALS: Ht 182.9 cm; Wt 81.8 kg
[~2018-05-07 09:14] MED LIST changes: +LOMOTIL2.5 MG PO
[2018-05-07 09:55] LABS: HEMOGLOBIN 11.7 g/dl (14.0-18.0); IMMATURE GRANULOCYTES 0.2 % (0.0-5.0); MEAN CELL VOLUME 90.9 fL CALC (80.0-100.0); MEAN CORPUSCULAR HGB 30.4 pG CALC (26.0-32.0); MEAN CORPUSCULAR HGB CONC 33.4 g/L CALC (32.0-36.0); NEUT# 7.36 thou/uL (1.82-7.42); RED BLOOD COUNT 3.85 mill/uL (4.70-6.10)
[2018-05-07 10:10] LABS: ALBUMIN 3.9 g/dL (3.2-5.0); ALKALINE PHOSPHATASE 99 u/l (38-126); ANION GAP 21 (6-22 (CALC)); BILIRUBIN, TOTAL 0.8 mg/dL (0.0-1.4); BUN 17 mg/dL (9-20); BUN/CREATININE RATIO 34 (12-20 (CALC)); CARBON DIOXIDE 24 mmol/l (22-30); CHLORIDE 99 mmol/l (95-108); CREATININE 0.5 mg/dL (0.7-1.3); GFR > 60 ML/MIN (>=60 (CALC)); GFR FOR AFR.AMER. > 60 ML/MIN (>=60 (CALC)); LIPASE 32 u/l (23-300); POTASSIUM 4.8 mmol/l (3.5-5.1); SGOT/AST 18 u/l (17-59); SODIUM 140 mmol/l (137-146)
[2018-05-07] MEDS ORDERED: ONDANSETRON4 MG PO (10:51)
[2018-05-07] MEDS ORDERED: BENTYL10 MG PO (10:51)
[2018-05-07 11:07] VITALS: BP 131/73
== END 2018-05-07 11:23 | disposition home or self-care (01) ==
LOC: ED 09:14
PROVIDERS: Emergency Medicine
DX: R11.2 Nausea with vomiting, unspecified (principal); F17.200 Nicotine dependence, unspecified, uncomplicated; Z72.89 Other problems related to lifestyle; I10 Essential (primary) hypertension; E11.621 Type 2 diabetes mellitus with foot ulcer; Z79.4 Long term (current) use of insulin
CPT/HCPCS: S0164

== ENCOUNTER 2018-06-17 17:24 | Inpatient (IN) | payer OTHER ==
[2018-06-17] VITALS (29 sets, daily range): BP systolic 79–133; BP diastolic 51–81
[~2018-06-17] VITALS: Ht 182.9 cm; Wt 68.0 kg
[~2018-06-17 17:24] MED LIST changes: +BENTYL10 MG PO; +ONDANSETRON4 MG PO
--- NOTE | 2018-06-17 17:24 | NUR ---
ARRIVES VIA EMS RESPONSIVE TO TACTILE STIMULI, COMBATIVE WHEN TOUCHED,YELLS AND CURSES INCOHERENTLY. PT WITH DRY BLACK CRACKED LIPS AND TONGUE. EMS RELATES "METH OVERDOSE" UNKNOWN HOW LONG PT HAS BEEN IS.
[2018-06-17 18:06] LABS: HEMOGLOBIN 10.4 g/dl (14.0-18.0); MEAN CORPUSCULAR HGB 30.5 pG CALC (26.0-32.0); MEAN CORPUSCULAR HGB CONC 30.6 g/L CALC (32.0-36.0); NEUT# 18.69 thou/uL (1.82-7.42); RED BLOOD COUNT 3.41 mill/uL (4.70-6.10); RED CELL DISTRI WIDTH 13.5 % (11.5-15.5)
[2018-06-17 18:07] LABS: MEAN CELL VOLUME 99.7 fL CALC (80.0-100.0)
[2018-06-17 18:08] LABS: URINE BILIRUBIN - DIPSTICK NEGATIVE (NEGATIVE); URINE BLOOD DIPSTICK TRACE-LYSED (NEGATIVE); URINE COLOR YELLOW; URINE GLUCOSE - DIPSTICK >=1000 mg/dL (NEGATIVE); URINE KETONE >=80 mg/dL (NEGATIVE); URINE LEUK ESTERASE NEGATIVE (NEGATIVE); URINE NITRITE - DIPSTICK NEGATIVE (Negative); URINE PROTEIN - DIPSTICK NEGATIVE (NEG-TRACE); URINE UROBILINOGEN - DIPSTICK 0.2 E.U./dL (0.2)
[2018-06-17 18:11] LABS: BARBITURATES NEGATIVE (NEGATIVE); COCAINE NEGATIVE (NEGATIVE); METHADONE NEGATIVE (NEGATIVE); OXCYCODONE NEGATIVE (NEGATIVE); TETRAHYDROCANNABIONOL NEGATIVE (NEGATIVE); TRICYLIC ANTIDEPRESSANTS NEGATIVE (NEGATIVE)
[2018-06-17 18:26] LABS: ALBUMIN 3.6 g/dL (3.2-5.0); ALKALINE PHOSPHATASE 94 u/l (38-126); BILIRUBIN, TOTAL 0.8 mg/dL (0.0-1.4); CHLORIDE 94 mmol/l (95-108); LIPASE 146 u/l (23-300); PROTHROMBIN TIME 10.5 SECONDS (9.0-12.5); SGOT/AST 11 u/l (17-59); SODIUM 133 mmol/l (137-146); TOTAL PROTEIN 5.7 g/dL (6.3-8.2)
--- NOTE | 2018-06-17 18:33 | NUR ---
INITIATED IV INSULIN GTT ORDERED AT 7ML/HR FOR BS REASDING OF HIGH. CMP NOT COMPLETED
[2018-06-17 18:35] LABS: ANION GAP 39 (6-22 (CALC)); BUN/CREATININE RATIO 42 (12-20 (CALC)); CREATININE 2.2 mg/dL (0.7-1.3); ETHYL ALCOHOL 0 mg/dl (0-30); GFR 33 ML/MIN (>=60 (CALC)); GFR FOR AFR.AMER. 40 ML/MIN (>=60 (CALC)); POTASSIUM 5.9 mmol/l (3.5-5.1)
[2018-06-17 18:36] LABS: BUN 92 mg/dL (9-20); CARBON DIOXIDE 6 mmol/l (22-30)
--- NOTE | 2018-06-17 18:57 | NUR ---
PT COVERED WITH WARM BLANKETS,PT OPENED EYES ,ROLLED ONTO LT KALANI EAND WOUND BOTH HANDS IN IV TUBING. FREED HANDS AND TUBING AND INSURED IV SECURE. VSS. ON CONTINUOUS INSULIN GTT FOR DKA
--- NOTE | 2018-06-17 19:08 | NUR ---
REPORT TO ABI HARDY
--- NOTE | 2018-06-17 19:23 | NUR ---
REPORT CALLED TO [facility]. HOLD PT UNTIL ORDERS RECEIVED.
--- NOTE | 2018-06-17 19:30 | NUR ---
316F WHEELER CATH INSERTED WITHOUT DIFFICULTY. APPROX 200CC URINE OUT. SECURED TO LEG.
--- NOTE | 2018-06-17 19:40 | NUR ---
PT TO ICU 8 WITH RN ON MONITOR AND IV PUMP.
--- NOTE | 2018-06-17 19:45 | NUR ---
PT ARRIVED TO ICU BED 8 VIA STRETCHER PT MAX ASSIST TO BED 8. PT VOMITTING BROWN EMESIS. ADMISSION ASSESSMENT COMPLETED UNABLE TO OBTAIN DUE TO PT STATUS. NG TUBE ATTEMPTED. PT COMBATIVE AND UNABLE TO PLACE. DR CASTRO PHONED AND NOTIFIED OF PT STATUS. NEW ORDERS RECEIVED. UNABLE TO OBTAIN LAB SPECIMENS AT THIS TIME. UNABLE TO OBTAIN ADDITIONAL IV ACCESS AT THIS TIME. DR SCHREIBER PHONED IN THE ER FOR CENTRAL LINE PLACEMENT. TEMP 94.3 BEAR HUGGER PLACED ON PATIENT.
--- NOTE | 2018-06-17 20:25 | NUR ---
CALL PLACED TO [facility]-SPOKE TO RONALDO TO INITIATE TRANSFER.
--- NOTE | 2018-06-17 20:30 | NUR ---
DR SCHREIBER AT BEDSIDE FOR CENTRAL LINE PLACEMENT. TLC RIGHT SUBCLAVIAN. CONFIRMED WITH XRAY.
--- NOTE | 2018-06-17 21:15 | NUR ---
VLADIMIR CHANGED FOR DEMETRIA MARTINES. ALL MEDS PROVIDED PER MED REC
[2018-06-17 21:16] LABS: HEMATOCRIT 29.1 % (39.0-50.0); HEMOGLOBIN 9.6 g/dl (14.0-18.0); IMMATURE GRANULOCYTES 1.1 % (0.0-5.0); MEAN CORPUSCULAR HGB 30.6 pG CALC (26.0-32.0); NEUT# 15.02 thou/uL (1.82-7.42); RED BLOOD COUNT 3.14 mill/uL (4.70-6.10); RED CELL DISTRI WIDTH 13.3 % (11.5-15.5)
[2018-06-17 21:18] LABS: MEAN CELL VOLUME 92.7 fL CALC (80.0-100.0)
[2018-06-17 21:29] LABS: ALBUMIN 3.1 g/dL (3.2-5.0); BILIRUBIN, TOTAL 0.7 mg/dL (0.0-1.4); CREATININE 2.1 mg/dL (0.7-1.3); TOTAL PROTEIN 5.3 g/dL (6.3-8.2)
--- NOTE | 2018-06-17 21:37 | NUR ---
JANETH FROM [facility] CALLED AND STATED THAT SHE NEEDED A FACE SHEET FAXED OVER AND THAT DR CASTRO APPROVED GROUND TRANSPORT UNLESS THERE IS A CHANGE. FACE SHEET FAXED TO [phone]
--- NOTE | 2018-06-17 21:40 | NUR ---
LAB CALLED WITH CRITICAL LAB RESULTS. DR CASTRO UPDATED
[2018-06-17 21:41] LABS: POTASSIUM 4.4 mmol/l (3.5-5.1)
[2018-06-17 21:42] LABS: MAGNESIUM 2.5 mg/dL (1.6-2.3)
--- NOTE | 2018-06-17 22:10 | NUR ---
NICANOR FROM [facility] PHONED WITH ACCEPTANCE AND BED ASSINGMENT. BED IS [id number]. REPORT CAN BE CALLED TO [phone]
--- NOTE | 2018-06-17 22:10 | NUR ---
TEMP 97.5
--- NOTE | 2018-06-17 22:15 | NUR ---
[facility] PHONED FOR TRANSPORT. ETA IS 15-20 MINUTES.
--- NOTE | 2018-06-17 22:25 | NUR ---
ACCU CHECK CRITCAL HIGH
--- NOTE | 2018-06-17 22:35 | NUR ---
[facility] ARRIVED REPORT PROVIDED. PT TRANSFERRED TO EMS STRETCHER.
--- NOTE | 2018-06-17 22:43 | NUR ---
ATTEMPTED TO NOTIFY CONTACT ON CHART VI DESAI AT [phone]. PHONE NUMBER NOT IN USE. UNABLE TO NOTIFY ANYONE AT THIS TIME
--- NOTE | 2018-06-17 23:03 | NUR ---
REPORT CALLED TO RL AT [phone]. PROVIDED CALL BACK NUMBER FOR ANY ADDITIONAL QUESTIONS.
--- NOTE | 2018-06-17 23:03 | NUR ---
Discharge instructions given. Patient verbalizes understanding of same. Discharged in critical condition via Medical Transport to [facility] with [facility]. All belongings sent with pt.
== END 2018-06-17 23:00 | disposition short-term general hospital (02) | DRG 638 ==
LOC: ED 17:24 → ED-I 18:30 → ED 18:59 → ICU 19:00
PROVIDERS: Family Medicine; ADMIT Internal Medicine; ATTEND Internal Medicine
PROC: 05HY33Z Insertion of Infusion Device into Upper Vein, Percutaneous Approach (ICD-10-PCS; principal; 2018-06-17)
DX: E11.10 Type 2 diabetes mellitus with ketoacidosis without coma (principal); K92.0 Hematemesis; I10 Essential (primary) hypertension; F17.200 Nicotine dependence, unspecified, uncomplicated; F15.10 Other stimulant abuse, uncomplicated
CPT/HCPCS: S0164

== ENCOUNTER 2018-08-07 13:40 | Emergency (ER) | payer OTHER ==
[~2018-08-07] VITALS: Ht 182.9 cm; Wt 77.3 kg
[2018-08-07 14:37] LABS: HEMATOCRIT 33.2 % (39.0-50.0); HEMOGLOBIN 10.5 g/dl (14.0-18.0); IMMATURE GRANULOCYTES 0.3 % (0.0-5.0); MEAN CORPUSCULAR HGB 25.6 pG CALC (26.0-32.0); MEAN CORPUSCULAR HGB CONC 31.6 g/L CALC (32.0-36.0); NEUT# 8.38 thou/uL (1.82-7.42); RED BLOOD COUNT 4.1 mill/uL (4.70-6.10); RED CELL DISTRI WIDTH 14.1 % (11.5-15.5)
[2018-08-07 14:55] LABS: ALBUMIN 3.5 g/dL (3.2-5.0); ALKALINE PHOSPHATASE 114 u/l (38-126); BILIRUBIN, TOTAL 0.2 mg/dL (0.0-1.4); BUN 7 mg/dL (9-20); CHLORIDE 102 mmol/l (95-108); POTASSIUM 4.2 mmol/l (3.5-5.1); SGOT/AST 9 u/l (17-59); SODIUM 138 mmol/l (137-146)
[2018-08-07 15:01] LABS: ANION GAP 15 (6-22 (CALC)); BUN/CREATININE RATIO 14 (12-20 (CALC)); CARBON DIOXIDE 25 mmol/l (22-30); CREATININE 0.5 mg/dL (0.7-1.3); GFR > 60 ML/MIN (>=60 (CALC)); GFR FOR AFR.AMER. > 60 ML/MIN (>=60 (CALC)); TOTAL PROTEIN 6.5 g/dL (6.3-8.2)
[2018-08-07] MEDS ORDERED: BACTRIM DS1 TAB PO (16:48)
[2018-08-07] MEDS ORDERED: CEPHALEXIN500 MG PO (16:48)
[2018-08-07 17:24] VITALS: BP 156/98
== END 2018-08-07 17:41 | disposition home or self-care (01) ==
LOC: ED 13:40
PROVIDERS: Family Medicine
DX: L03.116 Cellulitis of left lower limb (principal); E11.621 Type 2 diabetes mellitus with foot ulcer; L97.429 Non-pressure chronic ulcer of left heel and midfoot with unspecified severity; L97.419 Non-pressure chronic ulcer of right heel and midfoot with unspecified severity; I10 Essential (primary) hypertension; F15.10 Other stimulant abuse, uncomplicated; F17.210 Nicotine dependence, cigarettes, uncomplicated; B95.62 Methicillin resistant Staphylococcus aureus infection as the cause of diseases classified elsewhere; Z89.422 Acquired absence of other left toe(s)

== ENCOUNTER 2018-08-26 11:22 | Outpatient (RCR) | payer OTHER ==
[2018-08-20 12:21] VITALS: BP 136/97
[2018-08-21 12:41] VITALS: BP 131/94
[2018-08-22 11:23] VITALS: BP 122/69
[2018-08-23 12:04] VITALS: BP 122/64
[2018-08-24 12:54] VITALS: BP 121/71
[2018-08-25 12:28] LABS: IMMATURE GRANULOCYTES 0.3 % (0.0-5.0); MEAN CELL VOLUME 80.4 fL CALC (80.0-100.0); MEAN CORPUSCULAR HGB 24.8 pG CALC (26.0-32.0); MEAN CORPUSCULAR HGB CONC 30.9 g/L CALC (32.0-36.0); NEUT# 4.21 thou/uL (1.82-7.42); RED BLOOD COUNT 3.26 mill/uL (4.70-6.10); RED CELL DISTRI WIDTH 15.2 % (11.5-15.5)
[2018-08-25 12:34] LABS: HEMATOCRIT 26.2 % (39.0-50.0); HEMOGLOBIN 8.1 g/dl (14.0-18.0)
[2018-08-25 12:54] LABS: ALKALINE PHOSPHATASE 82 u/l (38-126); ANION GAP 14 (6-22 (CALC)); BILIRUBIN, TOTAL 0.2 mg/dL (0.0-1.4); BUN 14 mg/dL (9-20); BUN/CREATININE RATIO 24 (12-20 (CALC)); CARBON DIOXIDE 25 mmol/l (22-30); CHLORIDE 102 mmol/l (95-108); CPK 29 u/l (52-200); CREATININE 0.6 mg/dL (0.7-1.3); GFR > 60 ML/MIN (>=60 (CALC)); GFR FOR AFR.AMER. > 60 ML/MIN (>=60 (CALC)); POTASSIUM 3.9 mmol/l (3.5-5.1); SGOT/AST 15 u/l (17-59); SODIUM 137 mmol/l (137-146); TOTAL PROTEIN 7.3 g/dL (6.3-8.2)
[2018-08-25 13:08] VITALS: BP 146/92
[~2018-08-26 11:22] MED LIST changes: +CEPHALEXIN500 MG PO
[2018-08-26 13:55] VITALS: BP 133/86
== END 2018-08-26 12:00 | disposition home or self-care (01) ==
LOC: INF 11:22
PROVIDERS: ATTEND Internal Medicine Infectious Disease
DX: E11.621 Type 2 diabetes mellitus with foot ulcer (principal)
CPT/HCPCS: J0878

== ENCOUNTER 2018-08-28 16:37 | Inpatient (IN) | payer OTHER ==
[2018-08-28] VITALS (7 sets, daily range): BP systolic 98–179; BP diastolic 73–100
[~2018-08-28] VITALS: Ht 182.9 cm; Wt 72.8 kg
--- NOTE | 2018-08-28 16:50 | NUR ---
INITIAL BLOOD SUGAR REGISTERS "HI" ON MONITOR.
[2018-08-28 17:44] LABS: HEMATOCRIT 31.5 % (39.0-50.0); HEMOGLOBIN 9.3 g/dl (14.0-18.0); IMMATURE GRANULOCYTES 0.6 % (0.0-5.0); MEAN CORPUSCULAR HGB 24.8 pG CALC (26.0-32.0); MEAN CORPUSCULAR HGB CONC 29.5 g/L CALC (32.0-36.0); NEUT# 18.4 thou/uL (1.82-7.42); RED BLOOD COUNT 3.75 mill/uL (4.70-6.10); RED CELL DISTRI WIDTH 15.6 % (11.5-15.5)
[2018-08-28 17:58] LABS: ALBUMIN 4.1 g/dL (3.2-5.0); ALKALINE PHOSPHATASE 98 u/l (38-126); BILIRUBIN, TOTAL 0.6 mg/dL (0.0-1.4); BUN 31 mg/dL (9-20); BUN/CREATININE RATIO 38 (12-20 (CALC)); CHLORIDE 94 mmol/l (95-108); CREATININE 0.8 mg/dL (0.7-1.3); GFR > 60 ML/MIN (>=60 (CALC)); GFR FOR AFR.AMER. > 60 ML/MIN (>=60 (CALC)); SGOT/AST 13 u/l (17-59); SODIUM 134 mmol/l (137-146)
[2018-08-28 18:06] LABS: ANION GAP 34 (6-22 (CALC)); CARBON DIOXIDE 11 mmol/l (22-30)
--- NOTE | 2018-08-28 19:00 | NUR ---
PT HAS BEEN PROVIDED ROCEPHIN, VANCOMYCIN, IVF X 2 LITERS. PT RESTING QUIETLY IN THE STRETCHER.
[2018-08-28 20:09] LABS: BARBITURATES NEGATIVE (NEGATIVE); COCAINE NEGATIVE (NEGATIVE); METHADONE NEGATIVE (NEGATIVE); OXCYCODONE NEGATIVE (NEGATIVE); TETRAHYDROCANNABIONOL NEGATIVE (NEGATIVE); TRICYLIC ANTIDEPRESSANTS NEGATIVE (NEGATIVE)
--- NOTE | 2018-08-28 20:40 | NUR ---
42 yr old VERY OLD appearing male admitted icu1 per stretcher from er. unable to transfer self to bed. transferred x3 assists to bed. bed weight obtained. pt has been incont of black stool & urine. asked pt if he knew when he needed to void. pt began yelling @ this quality analyst/technical writer. pt stated "fuck you bitch. i told the ems i pissed & shit myself so fuck you bitch." instructed pt that language was unacceptable. pt conts to yell "fuck you bitch. get me something to drink." instructed pt about npo status. pt conts to yell & curse @ this quality analyst/technical writer "fuck you bitch." lt foot dsg dirty. pt refused to have dsg chgd. monitoring coordinator shows sinus tach. picc line in place sandro. insulin gtt infusing @ 5 units/hr, ns infusing @ 20cchr. ns began @ 100cchr as ordered. vomitted 600cc black emesis. history obtained per er record & old chart. oriented to room. fall precautions initiated.
--- NOTE | 2018-08-28 20:45 | NUR ---
REPORT PROVIDED TO SHAE HARPER TAKEN TO ICU-1. PT BECAME PROFANE HE WAS HELPED OUT OF HIS SOILED PANTS AND UNDERWEAR.
--- NOTE | 2018-08-28 22:00 | NUR ---
supervisor pigment making here. instructed her of pts previous outburst.
--- NOTE | 2018-08-28 23:00 | NUR ---
vomitted 50cc black emesis. zofran 4mg ivp given.
[2018-08-29 00:01] VITALS: BP 110/65
--- NOTE | 2018-08-29 00:01 | NUR ---
eyes closed. no distress. firewood cutter shows sinus tach.
[2018-08-29 01:00] VITALS: BP 118/65
[2018-08-29 02:00] VITALS: BP 113/66
--- NOTE | 2018-08-29 02:00 | NUR ---
awakens easily. no emesis. services tech shows sinus tach.
[2018-08-29 03:00] VITALS: BP 124/55
[2018-08-29 04:00] VITALS: BP 125/79
--- NOTE | 2018-08-29 04:00 | NUR ---
eyes closed. no apparent distress. no emesis.
--- NOTE | 2018-08-29 04:44 | NUR ---
lab here. blood drawn.
[2018-08-29 04:57] LABS: HEMATOCRIT 26.5 % (39.0-50.0); HEMOGLOBIN 8.3 g/dl (14.0-18.0); IMMATURE GRANULOCYTES 0.5 % (0.0-5.0); MEAN CORPUSCULAR HGB 24.6 pG CALC (26.0-32.0); MEAN CORPUSCULAR HGB CONC 31.3 g/L CALC (32.0-36.0); NEUT# 11.87 thou/uL (1.82-7.42); RED BLOOD COUNT 3.38 mill/uL (4.70-6.10); RED CELL DISTRI WIDTH 15.5 % (11.5-15.5)
[2018-08-29 04:58] LABS: MEAN CELL VOLUME 78.4 fL CALC (80.0-100.0)
[2018-08-29 05:19] LABS: ALBUMIN 3.4 g/dL (3.2-5.0); ALKALINE PHOSPHATASE 82 u/l (38-126); AMYLASE 34 u/l (30-110); BILIRUBIN, TOTAL 0.5 mg/dL (0.0-1.4); BUN 36 mg/dL (9-20); BUN/CREATININE RATIO 61 (12-20 (CALC)); CHLORIDE 103 mmol/l (95-108); CREATININE 0.6 mg/dL (0.7-1.3); GFR > 60 ML/MIN (>=60 (CALC)); GFR FOR AFR.AMER. > 60 ML/MIN (>=60 (CALC)); LIPASE 66 u/l (23-300); POTASSIUM 4.4 mmol/l (3.5-5.1); SGOT/AST 7 u/l (17-59); SODIUM 138 mmol/l (137-146); TOTAL PROTEIN 6.3 g/dL (6.3-8.2)
[2018-08-29 05:38] LABS: ANION GAP 16 (6-22 (CALC)); CARBON DIOXIDE 23 mmol/l (22-30); MAGNESIUM 1.8 mg/dL (1.6-2.3)
[2018-08-29 06:02] VITALS: BP 141/88
--- NOTE | 2018-08-29 07:15 | NUR ---
ACCU CHECK COMPLETED INSULIN GTT CONTINUES NO S/S OF DISTRESS, CALL GEORGE WITHIN REACH.
--- NOTE | 2018-08-29 07:50 | NUR ---
0735 - ENTERED ROOM AND STARTED ASSESSMENT, EXPLAINED TO PT THAT THIS NURSE NEEDED TO APPLY SOME ARM BANDS, PERFORM A NASAL SWAB AND DO A PHYSICAL ASSESSMENT, PT ASKS FOR WATER AND THIS NURSE STATES "I WILL GET YOU SOME ICE AND" THAT IS FAR THIS NURSE GOT AND PT STARTS SCREAMING FUCK THIS SHIT BITCH I NEED SOME GOD DAMN WATER, ATTEMPTS TO EXPLAIN/CALM PT UNSUCCESSFUL CONTINUES TO YELL/SCREAM PROFANITIES AT STAFF AND AGGRESSIVELY PULL EQUIPMENT OFF, PT STATES BRING ME THE FUCKING PAPER TO LEAVE I'LL SIGN IT, AND GET ME THE FUCK OUT OF HERE. I NEED SOME FUCKING WATER, Y'ALL CAN KISS MY FUCKIN CRACK I AIN'T STAYING HERE THIS IS BULL SHIT, DOESN'T ALLOW STAFF TIME TO RESPOND CONTINUES TO SPEW PROFANITIES REPEATEDLY. 0742 - PT SCRIBBLES ON AMA FORM WHILE CONTINUING TO YELL PROFANITIES AT STAFF 0750 - EARNEST PHYSICAL METALLURGIST AT BEDSIDE ALSO ATTMEPTING TO CALMLY SPEAK WITH PT. PT CONTINUES TO YELL PROFANITIES HE IS DRAGGING URINE SOAKED LINENS AROUND HIS FEET TO GET INTO WHEELCHAIR TO BE TAKEN DOWNSTAIRS FOR D/C, PT GOWN WET OFFERED CHANGE PT REPLIES FUCK ALL Y'ALL JUST GET ME THE HELL OUT OF HERE, PT OFFERED HIS BELONGINGS BACG FROM HOME INCLUDING THE SOILED CLOTHES HE ARRIVED IN WELL SOMETHINGS HIS MOTHER BROUGHT HIM (PER REPORT) PT STATES "NOPE, I DON'T WANT IT JUST GET ME THE FUCK OUT OF HERE" PT LEFT UNIT IN WHEELCHAIR WITH CONTACT CENTER CONSULTANT.
--- NOTE | 2018-08-29 07:55 | NUR ---
PT DID ALLOW FLUSHING OF PICC PER PROTOCOL PRIOR TO LEAVING
== END 2018-08-29 07:50 | disposition left against medical advice (07) | DRG 639 ==
LOC: ED 16:37 → ED-I 18:17 → ED 19:00 → ICU 19:01
PROVIDERS: Emergency Medicine; ADMIT Internal Medicine Nephrology; ATTEND Internal Medicine Nephrology
DX: E11.10 Type 2 diabetes mellitus with ketoacidosis without coma (principal); E11.51 Type 2 diabetes mellitus with diabetic peripheral angiopathy without gangrene; I10 Essential (primary) hypertension; J44.9 Chronic obstructive pulmonary disease, unspecified; F15.10 Other stimulant abuse, uncomplicated; F10.10 Alcohol abuse, uncomplicated; F12.10 Cannabis abuse, uncomplicated; F17.210 Nicotine dependence, cigarettes, uncomplicated; Z91.19 Patient's noncompliance with other medical treatment and regimen; Z89.422 Acquired absence of other left toe(s)

== ENCOUNTER → 2018-08-31 | Outpatient (REF) | payer OTHER | END | disposition home or self-care (01) | LOC: INF 08:58 | PROVIDERS: ATTEND Internal Medicine Infectious Disease | DX: Z45.2 Encounter for adjustment and management of vascular access device (principal) ==

== ENCOUNTER 2018-12-03 03:20 | Inpatient (IN) | payer SELFPAY ==
[2018-12-03] VITALS (17 sets, daily range): BP systolic 113–161; BP diastolic 70–96
[~2018-12-03] VITALS: Ht 182.9 cm; Wt 75.0 kg
--- NOTE | 2018-12-03 03:25 | NUR ---
PATIENT TO ROOM 12 VIA EMS STRETCHER. PATIENT IS NOT FORTHCOMING WITH HISTORY OR PERTINENT INFORMATION. TRIAGE COMPLETED TO BEST OF RN ABILITY. PLACED ON [facility]. AWAITING MD CHACON.
--- NOTE | 2018-12-03 03:25 | NUR ---
PT HAS SOME DRIED EMESIS ON CHEST. WRETCHING. NO VOMITUS AT PRESENT
[2018-12-03] MEDS ORDERED: HUMULIN 70/30 K1 INJ (03:35)
--- NOTE | 2018-12-03 03:40 | NUR ---
IV STARTS ATTEMPTED. DIFFICULT STICK. DR SCHREIBER AT BEDSIDE. STARTED LEFT AC BY . RIGHT AC BY ABI KIRAN. BLOOD DRAWN. CULTURES DRAWN.
[2018-12-03 03:56] LABS: IMMATURE GRANULOCYTES 0.8 % (0.0-5.0); MEAN CORPUSCULAR HGB 24.2 pG CALC (26.0-32.0); MEAN CORPUSCULAR HGB CONC 30.2 g/L CALC (32.0-36.0); NEUT# 19.89 thou/uL (1.82-7.42); RED BLOOD COUNT 4.51 mill/uL (4.70-6.10); RED CELL DISTRI WIDTH 20.6 % (11.5-15.5)
[2018-12-03 03:57] LABS: HEMATOCRIT 36.1 % (39.0-50.0); HEMOGLOBIN 10.9 g/dl (14.0-18.0)
[2018-12-03 04:14] LABS: AMYLASE 42 u/l (30-110); BILIRUBIN, TOTAL 0.5 mg/dL (0.0-1.4); BUN 15 mg/dL (9-20); BUN/CREATININE RATIO 23 (12-20 (CALC)); CHLORIDE 99 mmol/l (95-108); CREATININE 0.7 mg/dL (0.7-1.3); ETHYL ALCOHOL 0 mg/dl (0-30); GFR > 60 ML/MIN (>=60 (CALC)); GFR FOR AFR.AMER. > 60 ML/MIN (>=60 (CALC)); LIPASE 29 u/l (23-300); POTASSIUM 4.1 mmol/l (3.5-5.1); SODIUM 138 mmol/l (137-146)
[2018-12-03 04:18] LABS: INTERNATIONAL NORMALIZED RATIO 0.9 RATIO (0.7-1.3); PROTHROMBIN TIME 9.8 SECONDS (9.0-12.5)
[2018-12-03 04:24] LABS: ALKALINE PHOSPHATASE 165 u/l (38-126); ANION GAP 33 (6-22 (CALC)); CARBON DIOXIDE 10 mmol/l (22-30); MYOGLOBIN 24 ng/mL (0 - 121); SGOT/AST 13 u/l (17-59); TOTAL PROTEIN 7.6 g/dL (6.3-8.2)
--- NOTE | 2018-12-03 04:30 | NUR ---
DR TO BEDSIDE TO DO RECTAL EXAM. DRSG REMOVED FROM RIGHT FOOT. ULCERATED AREA ON BALL OF FOOT. EVALUATED BY DR SCHREIBER. PICTURES OBTAINED AND FRESH DRESSING APPLIED. LEFT FOOT IS HEALED AND IS REDDENED AND IMFLAMMED. PICTURES OBTAINED. LEFT FOOT HAS NOT TOES.
--- NOTE | 2018-12-03 05:15 | NUR ---
REFUSED NG TUBE. NO VOMITING WHILE HERE.
--- NOTE | 2018-12-03 05:40 | NUR ---
REPORT CALLED TO MEREDITH, ICU NURSE. INSULIN DRIP NOT YET PROFILED
--- NOTE | 2018-12-03 05:50 | NUR ---
TO FLOOR VIA STRETCHER. TRANSPORT MONITOR. IVF INFUSING.
--- NOTE | 2018-12-03 05:55 | NUR ---
PICS OF PT'S FEET PROCESSED IN ICU OUR PRINTER NOT WORKING. WILL BE MOUNTED BY ICU STAFF.
--- NOTE | 2018-12-03 05:57 | NUR ---
43 yr old very old appearing white male admitted to icu5 per stretcher from er. tansferred self to bed. bed weight obtained. fuselage framer shows sinus rhythm. #20 rac saline lock. #20 lac ns bolus cont. insulin gtt began as ordered from er. open ulcer areas on feet. see pics from er. history obtained per er record. oriented to room. fall & contact precautions initiated. stood to void. urine spec & mrsa swab sent to lab.
--- NOTE | 2018-12-03 06:15 | NUR ---
WAITING FOR U/O. UNABLE TO VOID AT PRESENT. URINAL AT BEDSIDE.
[2018-12-03 06:20] LABS: URINE BILIRUBIN - DIPSTICK NEGATIVE (NEGATIVE); URINE BLOOD DIPSTICK TRACE-LYSED (NEGATIVE); URINE COLOR YELLOW; URINE GLUCOSE - DIPSTICK 500 mg/dL (NEGATIVE); URINE KETONE >=80 mg/dL (NEGATIVE); URINE LEUK ESTERASE TRACE (NEGATIVE); URINE NITRITE - DIPSTICK NEGATIVE (Negative); URINE PH 5.5 (4.5-8.0); URINE PROTEIN - DIPSTICK TRACE mg/dL (NEG-TRACE); URINE SPECIFIC GRAVITY >=1.030; URINE UROBILINOGEN - DIPSTICK 0.2 E.U./dL (0.2)
[2018-12-03 06:45] LABS: BARBITURATES NEGATIVE (NEGATIVE); COCAINE NEGATIVE (NEGATIVE); METHADONE NEGATIVE (NEGATIVE); OXCYCODONE NEGATIVE (NEGATIVE); TETRAHYDROCANNABIONOL NEGATIVE (NEGATIVE); TRICYLIC ANTIDEPRESSANTS NEGATIVE (NEGATIVE)
--- NOTE | 2018-12-03 06:46 | NUR ---
PT. DECLINED DAX TX. AT THIS TIME. STATED THAT HE MAY TAKE ONE LATER. I TOLD HIM I WOULD CHECK WITH HIM LATER.
--- NOTE | 2018-12-03 07:00 | NUR ---
REPORT RECEIVED FROM TAWANA HARPER;PT APPEARS TO BE SLEEPING IN SUPINE POSITION;RESPIRATIONS EVEN AND UNLABORED ON RA;NO S/S OF DISTRESS NOTED;ACCUCHECK 365;INSULIN DRIP CONTINUES TO INFUSE AT 4UNITS/HR PER ORDER;CARDIAC MONITORING IN PLACE;CONTACT PRECAUTIONS NOTED;ALL SAFETY PRECAUTIONS IN PLACE WITH BED IN THE LOWEST POSITION AND CALL LIGHT IN REACH;WILL CONTINUE TO MONITOR
--- NOTE | 2018-12-03 07:20 | NUR ---
PT SLEEPING IN SUPINE POSITION,WAKES TO VERBAL STIMULI;VS OBTAINED AND ASSESSMENT COMPLETED, PT A&O X3 BUT DROWSY;RESPIRATIONS SHALLOW ON RA, GRUNTING NOTED WITH DIMINISHED LUNG SOUNDS;ABDOMEN SOFT ON PALPATION AND HYPOACTIVE IN ALL 4 QUADRANTS, PT UNABLE TO REPORT LAST BM STATING "ITS BEEN AWHILE";WOUND NOTED TO BALL OF RIGHT FOOT, KERLEX DRESSING CDI;PARTIAL LEFT FOOT AMPUTEE;DOPPLERED WEAK PULSES;#20G TO RAC FLUSHED AND PATENT,SITE APPEARS HEALTHY;#20G TO LAC INFUSING NS @150ML/HR AND INSULIN DRIP TITRATED TO 4 UNITS AT THIS TIME;PT DENIES ANY CURRENT PAIN OR DISCOMFORTS,PAIN SCALE AND REPORTING EDUCATED;ENCOURAGED PT TO CALL FOR ASSISTANCE IF NEEDED;CALL LIGHT IN REACH;WILL CONTINUE TO MONITOR
--- NOTE | 2018-12-03 08:00 | NUR ---
ACCUCHECK OF 341 OBTAINED;INSULIN DRIP TO REMAIN AT 4UNITS/HR PER ORDER;PT DENIES ANY ADDITIONAL NEEDS AT THIS TIME;COMPLETED 75% OF BREAKFAST TRAY;WILL CONTINUE TO MONITOR
--- NOTE | 2018-12-03 08:32 | NUR ---
SPOKE WITH ABI JAMESON AT [facility] REGARDING CONSULT FOR R/T PT DIABETIC FOOT ULCER. PER TRINO KC WOULD BE IN CONTACT WITH THIS NURSE. ARORA BACK NUMBER PROVIDED.
--- NOTE | 2018-12-03 09:00 | NUR ---
PT APPEARS TO BE SLEEPING IN SEMI FOWLERS POSITION,WAKES TO VERBAL STIMULI;ACCUCHECK OBTAINED RESULTING IN 272, INSULIN DRIP TO REMAIN AT 4UNITS/HR PER ORDER;RESPIRATIONS REMAIN EVEN AND UNLABORED ON RA;PT DENIES ANY ADDITIONAL NEEDS AND IS ENCOURAGED TO CALL FOR ASSISTANCE IF NEEDED;CALL LIGHT IN REACH;WILL CONTINUE TO MONITOR
--- NOTE | 2018-12-03 10:00 | NUR ---
CALL RECEIVED FROM TRINO AT [facility]. PER TRINO BOTH AND ARE OUT OF TOWN AND WILL NOT BE RETURNING UNTIL NEXT WEEK. TO BE NOTIFIED.
--- NOTE | 2018-12-03 10:05 | NUR ---
PT APPEARS TO BE SLEEPING IN SEMI FOWLERS POSITION, AGAIN WAKES EASILY TO VERBAL STIMULI;RESPIRATIONS EVEN AND UNLABORED ON RA,GRUNTING NOTED;PT DENIES ANY CURRENT PAIN;IV FLUIDS CONTINUE TO INFUSE TO LAC WITH EASE;FRESH WATER PROVIDED PER REQUEST;ACCUCHECK 357, INSULIN DRIP TO REMAIN AT 4 UNITS/HR;LAB AT BEDSIDE TO OBTAIN LABWORK;PT INSTRUCTED TO CALL FOR ASSISTANCE IF NEEDED;CALL LIGHT IN REACH;WILL CONTINUE TO MONITOR
[2018-12-03 10:55] LABS: ANION GAP 24 (6-22 (CALC)); BUN 19 mg/dL (9-20); BUN/CREATININE RATIO 33 (12-20 (CALC)); CARBON DIOXIDE 12 mmol/l (22-30); CHLORIDE 106 mmol/l (95-108); CREATININE 0.6 mg/dL (0.7-1.3); GFR > 60 ML/MIN (>=60 (CALC)); GFR FOR AFR.AMER. > 60 ML/MIN (>=60 (CALC)); POTASSIUM 3.9 mmol/l (3.5-5.1); SODIUM 138 mmol/l (137-146)
--- NOTE | 2018-12-03 11:00 | NUR ---
PT RESTING IN SEMI FOWLERS POSITION;RESPIRATIONS EVEN AND UNLABORED ON RA;PT DENIES ANY CURRENT PAIN OR NEEDS;BP 137/78 HR 120;ACCUCHECK OBTAINED RESULTING IN 274;INSULIN DRIP TITRATED TO 3 UNITS/HR PER ORDER BY ABI GOMEZ;CARDIAC MONITORING IN PLACE;PT DENIES ANY ADDITIONAL NEEDS AND IS ENCOURAGED TO CALL FOR ASSISTANCE IF NEEDED;CALL LIGHT IN REACH;WILL CONTINUE TO MONITOR
--- NOTE | 2018-12-03 11:25 | NUR ---
VISITOR AT BEDSIDE
--- NOTE | 2018-12-03 11:36 | NUR ---
FROM [facility] AT BEDSIDE
--- NOTE | 2018-12-03 12:04 | NUR ---
AT BEDSIDE DISCUSSING POC WITH PT AND MOTHER.
--- NOTE | 2018-12-03 12:48 | NUR ---
INFORM CONSENT OBTAINED FOR INCISION AND DRAINAGE OF LEFT FOOT.
--- NOTE | 2018-12-03 12:50 | NUR ---
AT BEDSIDE PERFORMING INCISION AND DRAINAGE OF LEFT FOOT.STERILE TECHNIQUE PROVIDED AND CULTURES OBTAINED;LEFT FOOT DRESSED WITH 4X4 GUAZE DRESSING AND SECURED WITH KERLEX AND PAPER TAPE;MOTHER REMAINS AT BEDSIDE;PT TOLERATED PROCEDURE WELL AND DENIES ANY ADDITIONAL NEEDS AT THIS TIME;WILL CONTINUE TO MONITOR
--- NOTE | 2018-12-03 13:05 | NUR ---
NEB TX NOT GIVEN DUE TO PT HAVING PROCEDURE.
--- NOTE | 2018-12-03 14:00 | NUR ---
PT APPEARS TO BE SLEEPING IN SUPINE POSITION,AWAKES TO VERBAL STIMULI;RESPIRATIONS EVEN AND UNLABORED ON RA;IV SITE TO LAC CONTINUES TO INFUSE NS @ 75ML/HR;ACCUCHECK 284, INSULIN DRIP CONTINUES AT 3 UNITS/HR;VS STABLE;DRESSING TO LEFT FOOT CDI;TELE MARKETING EXECUTIVE IN PLACE READING ST ON MONITOR;PT ENCOURAGED TO CALL FOR ASSISTANCE IF NEEDED;CALL LIGHT IN REACH;WILL CONTINUE TO MONITOR
[2018-12-03 14:52] LABS: ANION GAP 15 (6-22 (CALC)); BUN 18 mg/dL (9-20); BUN/CREATININE RATIO 42 (12-20 (CALC)); CHLORIDE 106 mmol/l (95-108); CREATININE 0.4 mg/dL (0.7-1.3); GFR > 60 ML/MIN (>=60 (CALC)); GFR FOR AFR.AMER. > 60 ML/MIN (>=60 (CALC)); POTASSIUM 3.9 mmol/l (3.5-5.1); SODIUM 134 mmol/l (137-146)
[2018-12-03 15:00] LABS: CARBON DIOXIDE 17 mmol/l (22-30)
--- NOTE | 2018-12-03 15:00 | NUR ---
PT SLEEPING IN SUPINE POSITION WAKES TO VERBAL STIMULI,DROWSY;RESPIRATIONS EVEN AND UNLABORED ON RA;PT DENIES ANY CURRENT PAIN OR NEEDS;ACCUCHECK 269, INSULIN DRIP CONTINUES AT 3UNITS/HR PER ORDER;IV FLUIDS INFUSING @ 75ML/HR WITH EASE;SOFA INSPECTOR READING ST 103;DRESSING CHANGES PROVIDED TO BLE DUE TO SATURATION OF DRESSING,PT TOLERATED WELL;CALL LIGHT IN REACH;WILL CONTINUE TO MONITOR
--- NOTE | 2018-12-03 17:00 | NUR ---
PT RESTING IN SUPINE POSITION;RESPIRATIONS EVEN AND UNLABORED ON RA;PT DENIES ANY CURRENT NEEDS;INSULIN DRIP STOPPED AT THIS TIME;ACCUCHECK 243, PT TO BE COVERED WITH SLIDING SCALE NOVOLOG PER ORDER;PT INFORMED THAT HE HAS NOT VOIDED ALL SHIFT AND ENCOURAGED TO PROVIDE SOME OUTPUT,PT STATES "I WILL WHEN IM GOOD AND READY";URINAL AT BEDSIDE;ENCOURAGED TO CALL FOR ASSISTANCE IF NEEDED;CALL LIGHT IN REACH;WILL CONTINUE TO MONITOR
[2018-12-03 18:48] LABS: ANION GAP 11 (6-22 (CALC)); BUN 17 mg/dL (9-20); BUN/CREATININE RATIO 41 (12-20 (CALC)); CHLORIDE 105 mmol/l (95-108); CREATININE 0.4 mg/dL (0.7-1.3); GFR > 60 ML/MIN (>=60 (CALC)); GFR FOR AFR.AMER. > 60 ML/MIN (>=60 (CALC)); POTASSIUM 3.3 mmol/l (3.5-5.1); SODIUM 134 mmol/l (137-146)
[2018-12-03 18:57] LABS: CARBON DIOXIDE 21 mmol/l (22-30)
--- NOTE | 2018-12-03 19:00 | NUR ---
drowsy when awakened. no acute distress. cyber ops planner shows sinus tach. #20 rac saline lock. #20 lac ns infusing @ 75cchr. no po intake @ present. voids per urinal. fall & contact precautions cont.
--- NOTE | 2018-12-03 22:00 | NUR ---
eyes closed. no distress. lunchroom monitor shows sinus tach.
[2018-12-04] VITALS (11 sets, daily range): BP systolic 98–136; BP diastolic 66–82
--- NOTE | 2018-12-04 00:01 | NUR ---
eyes closed. no distress. ivf infusing well.
--- NOTE | 2018-12-04 02:00 | NUR ---
resting quietly. resps even & unlabored. no apparent distress.
--- NOTE | 2018-12-04 04:45 | NUR ---
lab here. blood drawn.
[2018-12-04 05:12] LABS: HEMOGLOBIN 9.3 g/dl (14.0-18.0); IMMATURE GRANULOCYTES 0.4 % (0.0-5.0); MEAN CELL VOLUME 77.6 fL CALC (80.0-100.0); MEAN CORPUSCULAR HGB 24.2 pG CALC (26.0-32.0); MEAN CORPUSCULAR HGB CONC 31.2 g/L CALC (32.0-36.0); NEUT# 16.08 thou/uL (1.82-7.42); RED BLOOD COUNT 3.84 mill/uL (4.70-6.10); RED CELL DISTRI WIDTH 20.3 % (11.5-15.5)
[2018-12-04 05:17] LABS: HEMATOCRIT 29.8 % (39.0-50.0)
[2018-12-04 05:39] LABS: ALKALINE PHOSPHATASE 96 u/l (38-126); ANION GAP 11 (6-22 (CALC)); BUN 13 mg/dL (9-20); BUN/CREATININE RATIO 32 (12-20 (CALC)); CARBON DIOXIDE 24 mmol/l (22-30); CHLORIDE 106 mmol/l (95-108); CREATININE 0.4 mg/dL (0.7-1.3); GFR > 60 ML/MIN (>=60 (CALC)); GFR FOR AFR.AMER. > 60 ML/MIN (>=60 (CALC)); LIPASE 14 u/l (23-300); MAGNESIUM 1.7 mg/dL (1.6-2.3); POTASSIUM 2.8 mmol/l (3.5-5.1); SGOT/AST 6 u/l (17-59); SODIUM 137 mmol/l (137-146)
[2018-12-04 05:49] LABS: ALBUMIN 2.5 g/dL (3.2-5.0); AMYLASE < 30 u/l (30-110); BILIRUBIN, TOTAL 0.2 mg/dL (0.0-1.4); TOTAL PROTEIN 5.4 g/dL (6.3-8.2)
--- NOTE | 2018-12-04 06:00 | NUR ---
no acute change in condition. solderer barrel ribs shows sinus tach.
--- NOTE | 2018-12-04 06:45 | NUR ---
RECIEVED REPORT FROM TAWANA HARPER. [facility]
--- NOTE | 2018-12-04 07:15 | NUR ---
PT RESTING IN BED, ASSESSMENT COMPLETED. PT DENIES CHEST PAIN, SOB OR DISTRESS AT THIS TIME. 20G TO RAC/SL , FLUSHES WITHOUT DIFFICULTY. 20G TO LAC WITH NS INFUSING AT 75ML/HR. NO S/S OF INFILTRATION OR REDNESS NOTED AT SITE. ACCUCHECK 106. DRESSING TO BILAT FEET CDI. CALL LIGHT IN REACH. WILL MONITOR.
--- NOTE | 2018-12-04 07:39 | NUR ---
PT REPOSITIONED SELF, WASHED FACE AND HANDS WITH CLOTH PROVIDED, PT REFUSED SET UP FOR BED BATH. DIETARY ON UNIT, BREAKFAST TRAY SET UP. CALL LIGHT IN REACH. WILL MONITOR.
--- NOTE | 2018-12-04 08:09 | NUR ---
S: TONIO BARROSO is a 43 M who presents with DKA and bilateral diabetic foot ulcers. He has a history of T2DM, hypertension, neuropathy, and alcohol/ilicit drug use. All medications in patient's chart were reviewed. O: VS: BP 108/70, P 91, RR 16, T 98 W 75 kg, HT 72 in, Scr= 0.4, CrCl= 171 ml/min A: Blood culture is pending but both sets show gram positive cocci. P: Patient is on Zosyn 3.375 gm IV q6h. Vancomycin ordered for pharmacy to dose. Start Vancomycin 1250 mg IV Q12H. Vancomycin trough is drawn before the 4th dose on 12/05/18 @ 1930. Vancomycin goal trough is between 15-20 mcg/ml. Pharmacy will follow and or advise on antibiotics use as needed.
--- NOTE | 2018-12-04 10:11 | NUR ---
pt resting in bed with eyes closed, respirations even/unlabored. pt offers no complaints at this time. call light in reach, will monitor.
--- NOTE | 2018-12-04 11:37 | NUR ---
ENTERED PTS ROOM TO ASSIST WITH BEEPING IV PUMP. PT VERY NASTY TOWARDS STAFF AND MOTHER. PT YELLING AT MOM WHILE ON THE PHONE. MOM STATES "HE'S ALWAYS LIKE THIS".
--- NOTE | 2018-12-04 13:09 | NUR ---
PT RESTING IN BED WITH EYES CLOSED, RESPIRATIONS EVEN/UNLABORED. CALL LIGHT IN REACH. MOTHER LEFT UNIT , STATED SHE WILL RETURN LATER.
--- NOTE | 2018-12-04 14:56 | NUR ---
PT RESTING IN BED WITH EYES CLOSED. RESP.EVEN/UNLABORED. CALL LIGHT IN REACH.
--- NOTE | 2018-12-04 19:15 | NUR ---
awakens easily but remains drowsy. side boss shows sinus rhythm. #20 rac saline lock. #20 lac ns infusing @ 75cchr. refused po fluids @ present. voids per urinal. bilat feet dsgs cdi. fall & contact precautions cont.
--- NOTE | 2018-12-04 22:00 | NUR ---
eyes closed. no distress. youth nutritional monitor shows sinus rhythm.
[2018-12-05 00:01] VITALS: BP 100/69
--- NOTE | 2018-12-05 00:01 | NUR ---
eyes closed. no distress. ivf cont.
[2018-12-05 02:00] VITALS: BP 108/69
--- NOTE | 2018-12-05 02:00 | NUR ---
resting quietly. resps even & unlabored. no apparent distress.
[2018-12-05 04:00] VITALS: BP 139/89
--- NOTE | 2018-12-05 04:00 | NUR ---
eyes closed. no distress. patient monitor shows sinus rhythm.
--- NOTE | 2018-12-05 05:05 | NUR ---
lab here. blood drawn.
[2018-12-05 05:34] LABS: HEMATOCRIT 31.2 % (39.0-50.0); HEMOGLOBIN 9.4 g/dl (14.0-18.0); IMMATURE GRANULOCYTES 0.4 % (0.0-5.0); MEAN CELL VOLUME 78.6 fL CALC (80.0-100.0); MEAN CORPUSCULAR HGB 23.7 pG CALC (26.0-32.0); MEAN CORPUSCULAR HGB CONC 30.1 g/L CALC (32.0-36.0); NEUT# 7.92 thou/uL (1.82-7.42); RED BLOOD COUNT 3.97 mill/uL (4.70-6.10); RED CELL DISTRI WIDTH 20.5 % (11.5-15.5)
[2018-12-05 05:54] LABS: ALBUMIN 2.3 g/dL (3.2-5.0); ALKALINE PHOSPHATASE 94 u/l (38-126); ANION GAP 10 (6-22 (CALC)); BUN 10 mg/dL (9-20); BUN/CREATININE RATIO 25 (12-20 (CALC)); CARBON DIOXIDE 25 mmol/l (22-30); CHLORIDE 104 mmol/l (95-108); CREATININE 0.4 mg/dL (0.7-1.3); GFR > 60 ML/MIN (>=60 (CALC)); GFR FOR AFR.AMER. > 60 ML/MIN (>=60 (CALC)); MAGNESIUM 1.9 mg/dL (1.6-2.3); POTASSIUM 3.2 mmol/l (3.5-5.1); SGOT/AST 6 u/l (17-59); SODIUM 135 mmol/l (137-146); TOTAL PROTEIN 5.2 g/dL (6.3-8.2)
[2018-12-05 06:06] LABS: BILIRUBIN, TOTAL 0.1 mg/dL (0.0-1.4)
--- NOTE | 2018-12-05 06:45 | NUR ---
recieved report from wilfredo vargas. assumed pt care.
--- NOTE | 2018-12-05 07:15 | NUR ---
PT A&0X3, ABLE TO MAKE NEEDS KNOWN. ASSESSMENT COMPLETED, DRESSINGS TO BILAT FEET CDI, RESPIRATIONS EVEN/UNLABORED. NS INFUSING TO LAC @75ML/HR ORDERED. CALL LIGHT IN REACH. WILL MONITOR.
[2018-12-05 08:00] VITALS: BP 122/76
--- NOTE | 2018-12-05 09:23 | NUR ---
PT BEING RUDE TO STAFF; NOT USING CALLBELL BUT YELLING OUT FOR "NURSE". OVERHEARD C/O HIS MOM THAT HE HAS NOT SEEN ANY DRS SINCE ADMISSION & THERES NO REASON FOR HIM TO STAY HERE ANY LONGER. PT STATES HES FINE & CAN GO HOME. PT STATING HE CAN JUST LEAVE AMA. HOUSE SUP & MD NOTIFIED. AWAITING NEW ORDERS.
--- NOTE | 2018-12-05 09:38 | NUR ---
PT AGAIN YELLING OUT ON THE PHONE WITH FAMILY MEMBER, BEING BELIGERENT, CUSSING AND YELLING, PT ASKED TO LOWER VOICE AND WATCH LANGUAGE. PT APOLOGIZED AND HUNG UP THE PHONE. PT AGAIN ASKED TO USE CALL LIGHT FOR NEEDS, REORIENTED TO CALL LIGHT AND PT DEMONSTRATED USE. CALL LIGHT IN REACH. WILL MONITOR.
--- NOTE | 2018-12-05 11:30 | NUR ---
DIETARY ON UNIT, LUNCH TRAY SET UP. PT REPOSITIONED SELF TO SIT UP IN BED TO EAT.
[2018-12-05 11:55] VITALS: BP 118/67
--- NOTE | 2018-12-05 13:00 | NUR ---
PT MOTHER AT BEDSIDE, PT AGAIN BEING BELIGERENT, CUSSING AND YELLING AT MOTHER. PT AGAIN ASKED TO QUIET TONE AND BE MORE RESPECTFUL OF UNIT. PT TELLING MOTHER TO GO GET HIM FOOD, PT EDUCATED ON DIET, AGAIN PT BECAME BELIGERENT, AGAIN REMINDED TO BE RESPECTFUL TO OTHERS ON UNIT.
--- NOTE | 2018-12-05 14:45 | NUR ---
PT MOTHER ON UNIT BROUGHT PT HAMBURGER, BREAD REMOVED FROM SANDWICH, PT BEGAN THRASHING IN BED, CUSSING AND BECOMING AGGRESSIVE TOWARD MOTHER, PT ASKED TO CALM DOWN AND BEGAN CUSSING AND THREATENING STAFF. PT THEN STATED HE WANTED HIS AMA, NURSING TAX STAFF ACCOUNTANT NOTIFIED AND SECURITY CALLED. PT CONTINUED BEING BELIGERENT.
--- NOTE | 2018-12-05 14:50 | NUR ---
IV site TO LAC & RAC discontinued, cath intact. No edema , no redness, voices no discomfort.
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
--- NOTE | 2018-12-05 15:00 | NUR ---
SECURITY AT BEDSIDE, ESCORTED PT OUT OF UNIT. PT REMAINED BELIGERENT.
== END 2018-12-05 15:00 | disposition left against medical advice (07) | DRG 623 ==
LOC: ED 03:20 → ED-I 03:51 → ED 03:51 → ED-I 04:38 → ED 05:17 → ICU 05:18
PROVIDERS: Emergency Medicine; Internal Medicine Nephrology; ADMIT Internal Medicine; ATTEND Internal Medicine
PROC: 0JBR0ZZ Excision of Left Foot Subcutaneous Tissue and Fascia, Open Approach (ICD-10-PCS; principal; 2018-12-03)
PROC: 0HBNXZZ Excision of Left Foot Skin, External Approach (ICD-10-PCS; 2018-12-03)
DX: E11.10 Type 2 diabetes mellitus with ketoacidosis without coma (principal); L02.612 Cutaneous abscess of left foot; R78.81 Bacteremia; L97.422 Non-pressure chronic ulcer of left heel and midfoot with fat layer exposed; L97.418 Non-pressure chronic ulcer of right heel and midfoot with other specified severity; E11.621 Type 2 diabetes mellitus with foot ulcer; L97.529 Non-pressure chronic ulcer of other part of left foot with unspecified severity; E11.42 Type 2 diabetes mellitus with diabetic polyneuropathy; E11.51 Type 2 diabetes mellitus with diabetic peripheral angiopathy without gangrene; I10 Essential (primary) hypertension; F41.9 Anxiety disorder, unspecified; F32.9 Major depressive disorder, single episode, unspecified; E78.5 Hyperlipidemia, unspecified; F10.10 Alcohol abuse, uncomplicated; D63.8 Anemia in other chronic diseases classified elsewhere; J44.9 Chronic obstructive pulmonary disease, unspecified; F15.10 Other stimulant abuse, uncomplicated; F17.210 Nicotine dependence, cigarettes, uncomplicated; T38.3X6A Underdosing of insulin and oral hypoglycemic [antidiabetic] drugs, initial encounter; B96.1 Klebsiella pneumoniae [K. pneumoniae] as the cause of diseases classified elsewhere; Z91.128 Patient's intentional underdosing of medication regimen for other reason; Z79.4 Long term (current) use of insulin; Z91.11 Patient's noncompliance with dietary regimen; Z89.432 Acquired absence of left foot
CPT/HCPCS: J3370; S0164

== ENCOUNTER 2019-01-25 13:07 | Emergency (ER) | payer SELFPAY ==
[~2019-01-25] VITALS: Ht 182.9 cm; Wt 60.0 kg
[~2019-01-25 13:07] MED LIST changes: +HUMULIN 70/30 K1 INJ
[2019-01-25 13:57] LABS: HEMATOCRIT 30.2 % (39.0-50.0); HEMOGLOBIN 9.3 g/dl (14.0-18.0); IMMATURE GRANULOCYTES 0.6 % (0.0-5.0); MEAN CORPUSCULAR HGB 26.1 pG CALC (26.0-32.0); MEAN CORPUSCULAR HGB CONC 30.8 g/L CALC (32.0-36.0); NEUT# 10.56 thou/uL (1.82-7.42); RED BLOOD COUNT 3.56 mill/uL (4.70-6.10); RED CELL DISTRI WIDTH 17.8 % (11.5-15.5)
[2019-01-25 13:58] LABS: MEAN CELL VOLUME 84.8 fL CALC (80.0-100.0)
[2019-01-25 14:18] LABS: ALKALINE PHOSPHATASE 90 u/l (38-126); BUN 35 mg/dL (9-20); BUN/CREATININE RATIO 70 (12-20 (CALC)); CHLORIDE 96 mmol/l (95-108); CREATININE 0.5 mg/dL (0.7-1.3); GFR > 60 ML/MIN (>=60 (CALC)); GFR FOR AFR.AMER. > 60 ML/MIN (>=60 (CALC)); LIPASE 63 u/l (23-300); SODIUM 133 mmol/l (137-146)
[2019-01-25 14:24] LABS: ALBUMIN 3.4 g/dL (3.2-5.0); ANION GAP 28 (6-22 (CALC)); BILIRUBIN, TOTAL 0.7 mg/dL (0.0-1.4); CARBON DIOXIDE 14 mmol/l (22-30); POTASSIUM 4.7 mmol/l (3.5-5.1); SGOT/AST 12 u/l (17-59); TOTAL PROTEIN 6.7 g/dL (6.3-8.2)
[2019-01-25 16:37] LABS: URINE BILIRUBIN - DIPSTICK NEGATIVE (NEGATIVE); URINE BLOOD DIPSTICK SMALL (NEGATIVE); URINE COLOR YELLOW; URINE GLUCOSE - DIPSTICK >=1000 mg/dL (NEGATIVE); URINE KETONE >=80 mg/dL (NEGATIVE); URINE LEUK ESTERASE NEGATIVE (NEGATIVE); URINE NITRITE - DIPSTICK NEGATIVE (Negative); URINE PH 5.5 (4.5-8.0); URINE PROTEIN - DIPSTICK NEGATIVE (NEG-TRACE); URINE UROBILINOGEN - DIPSTICK 0.2 E.U./dL (0.2)
[2019-01-25 16:40] LABS: BARBITURATES NEGATIVE (NEGATIVE); COCAINE NEGATIVE (NEGATIVE); METHADONE NEGATIVE (NEGATIVE); OXCYCODONE NEGATIVE (NEGATIVE); TETRAHYDROCANNABIONOL NEGATIVE (NEGATIVE); TRICYLIC ANTIDEPRESSANTS NEGATIVE (NEGATIVE)
[2019-01-25 16:46] LABS: URINE RBC 0-2 RBC/hpf (0-5); URINE WBC 0-2 WBC/hpf (0-5); URINE YEAST MANY hpf
[2019-01-25 20:44] VITALS: BP 134/90
[2019-01-25 20:54] LABS: PROTHROMBIN TIME 10.4 SECONDS (9.0-12.5)
== END 2019-01-25 20:44 | disposition short-term general hospital (02) | DRG 379 ==
LOC: ED 13:07
PROVIDERS: Emergency Medicine
DX: K92.0 Hematemesis (principal); K92.1 Melena; E11.65 Type 2 diabetes mellitus with hyperglycemia; E11.40 Type 2 diabetes mellitus with diabetic neuropathy, unspecified; I10 Essential (primary) hypertension; F15.10 Other stimulant abuse, uncomplicated; F17.200 Nicotine dependence, unspecified, uncomplicated; Z89.512 Acquired absence of left leg below knee; Z79.4 Long term (current) use of insulin
CPT/HCPCS: S0164

== ENCOUNTER 2019-03-03 02:38 | Emergency (ER) | payer SELFPAY ==
[~2019-03-03] VITALS: Ht 182.9 cm; Wt 63.6 kg
[2019-03-03 04:48] LABS: IMMATURE GRANULOCYTES 0.2 % (0.0-5.0); MEAN CELL VOLUME 83.6 fL CALC (80.0-100.0); MEAN CORPUSCULAR HGB CONC 31.1 g/L CALC (32.0-36.0); NEUT# 6.11 thou/uL (1.82-7.42); RED BLOOD COUNT 4.58 mill/uL (4.70-6.10); RED CELL DISTRI WIDTH 15.7 % (11.5-15.5)
[2019-03-03 04:49] LABS: HEMOGLOBIN 11.9 g/dl (14.0-18.0)
[2019-03-03 04:50] LABS: HEMATOCRIT 38.3 % (39.0-50.0)
[2019-03-03 04:53] LABS: ALBUMIN 3.6 g/dL (3.2-5.0); BUN 11 mg/dL (9-20); BUN/CREATININE RATIO 29 (12-20 (CALC)); CHLORIDE 101 mmol/l (95-108); CREATININE 0.4 mg/dL (0.7-1.3); GFR > 60 ML/MIN (>=60 (CALC)); GFR FOR AFR.AMER. > 60 ML/MIN (>=60 (CALC)); LIPASE 90 u/l (23-300); MAGNESIUM 1.7 mg/dL (1.6-2.3); POTASSIUM 4.5 mmol/l (3.5-5.1); SGOT/AST 18 u/l (17-59); SODIUM 136 mmol/l (137-146); TOTAL PROTEIN 7.1 g/dL (6.3-8.2)
[2019-03-03 05:03] LABS: ALKALINE PHOSPHATASE 166 u/l (38-126); ANION GAP 14 (6-22 (CALC))
[2019-03-03 05:04] LABS: BILIRUBIN, TOTAL 0.4 mg/dL (0.0-1.4); CARBON DIOXIDE 26 mmol/l (22-30)
[2019-03-03] MEDS ORDERED: HUMULIN 70/30 SC (05:04)
[2019-03-03 05:25] LABS: ACT PARTIAL THROMBO TIME 24.5 SECONDS (20.0-32.5); INTERNATIONAL NORMALIZED RATIO 0.9 RATIO (0.7-1.3); PROTHROMBIN TIME 9.7 SECONDS (9.0-12.5)
[2019-03-03 06:00] VITALS: BP 169/112
== END 2019-03-03 06:30 | disposition short-term general hospital (02) | DRG 205 ==
LOC: ED 02:38
DX: J95.89 Other postprocedural complications and disorders of respiratory system, not elsewhere classified (principal); J18.9 Pneumonia, unspecified organism; L03.116 Cellulitis of left lower limb; S30.813A Abrasion of scrotum and testes, initial encounter; Z89.512 Acquired absence of left leg below knee; Z89.421 Acquired absence of other right toe(s); E11.65 Type 2 diabetes mellitus with hyperglycemia; Z79.4 Long term (current) use of insulin; R94.31 Abnormal electrocardiogram [ECG] [EKG]
CPT/HCPCS: J0692

== ENCOUNTER 2019-03-18 17:13 | Observation (INO) | payer SELFPAY ==
[~2019-03-18] VITALS: Ht 182.9 cm; Wt 65.0 kg
[2019-03-18 17:55] LABS: IMMATURE GRANULOCYTES 0.5 % (0.0-5.0); MEAN CELL VOLUME 81.7 fL CALC (80.0-100.0); MEAN CORPUSCULAR HGB 25.8 pG CALC (26.0-32.0); MEAN CORPUSCULAR HGB CONC 31.6 g/L CALC (32.0-36.0); NEUT# 8.23 thou/uL (1.82-7.42); RED BLOOD COUNT 3.87 mill/uL (4.70-6.10); RED CELL DISTRI WIDTH 15.1 % (11.5-15.5)
[2019-03-18 18:02] LABS: HEMATOCRIT 31.6 % (39.0-50.0)
[2019-03-18 18:13] LABS: ALBUMIN 3.5 g/dL (3.2-5.0); ALKALINE PHOSPHATASE 167 u/l (38-126); ANION GAP 21 (6-22 (CALC)); BILIRUBIN, TOTAL 0.4 mg/dL (0.0-1.4); BUN 15 mg/dL (9-20); BUN/CREATININE RATIO 35 (12-20 (CALC)); CARBON DIOXIDE 24 mmol/l (22-30); CHLORIDE 95 mmol/l (95-108); CREATININE 0.4 mg/dL (0.7-1.3); GFR > 60 ML/MIN (>=60 (CALC)); GFR FOR AFR.AMER. > 60 ML/MIN (>=60 (CALC)); LIPASE 31 u/l (23-300); POTASSIUM 4.6 mmol/l (3.5-5.1); SGOT/AST 10 u/l (17-59); SODIUM 136 mmol/l (137-146); TOTAL PROTEIN 6.6 g/dL (6.3-8.2)
[2019-03-18 21:30] VITALS: BP 135/90
[2019-03-19 04:45] VITALS: BP 149/101
[2019-03-19 08:00] VITALS: BP 128/80
[2019-03-19 14:43] VITALS: BP 133/85
[2019-03-19 17:04] LABS: URINE BILIRUBIN - DIPSTICK NEGATIVE (NEGATIVE); URINE BLOOD DIPSTICK TRACE-LYSED (NEGATIVE); URINE COLOR YELLOW; URINE GLUCOSE - DIPSTICK >=1000 mg/dL (NEGATIVE); URINE KETONE 40 mg/dL (NEGATIVE); URINE LEUK ESTERASE NEGATIVE (NEGATIVE); URINE PH 5.5 (4.5-8.0); URINE PROTEIN - DIPSTICK NEGATIVE (NEG-TRACE); URINE UROBILINOGEN - DIPSTICK 0.2 E.U./dL (0.2)
[2019-03-19 17:05] LABS: URINE NITRITE - DIPSTICK POSITIVE (Negative)
[2019-03-19 17:29] LABS: URINE BACTERIA MANY hpf; URINE SQUAMOUS EPITHELIAL CELL FEW EPI/hpf (0-FEW)
[2019-03-19 19:59] VITALS: BP 134/83
[2019-03-20 04:30] VITALS: BP 140/89
[2019-03-20 07:30] VITALS: BP 144/93
[2019-03-20 15:33] VITALS: BP 140/85
[2019-03-20 19:25] VITALS: BP 122/75
[2019-03-21 05:10] VITALS: BP 139/90
[2019-03-21 05:31] LABS: HEMOGLOBIN 9.5 g/dl (14.0-18.0); IMMATURE GRANULOCYTES 0.4 % (0.0-5.0); MEAN CORPUSCULAR HGB CONC 31.7 g/L CALC (32.0-36.0); NEUT# 2.78 thou/uL (1.82-7.42); RED BLOOD COUNT 3.66 mill/uL (4.70-6.10); RED CELL DISTRI WIDTH 14.9 % (11.5-15.5)
[2019-03-21 05:42] LABS: ALKALINE PHOSPHATASE 137 u/l (38-126); ANION GAP 12 (6-22 (CALC)); BUN 11 mg/dL (9-20); BUN/CREATININE RATIO 30 (12-20 (CALC)); CARBON DIOXIDE 25 mmol/l (22-30); CHLORIDE 102 mmol/l (95-108); CREATININE 0.4 mg/dL (0.7-1.3); GFR > 60 ML/MIN (>=60 (CALC)); GFR FOR AFR.AMER. > 60 ML/MIN (>=60 (CALC)); POTASSIUM 4.1 mmol/l (3.5-5.1); SGOT/AST 9 u/l (17-59); SODIUM 134 mmol/l (137-146); TOTAL PROTEIN 5.5 g/dL (6.3-8.2)
[2019-03-21 05:45] LABS: ALBUMIN 2.6 g/dL (3.2-5.0); BILIRUBIN, TOTAL 0.2 mg/dL (0.0-1.4)
[2019-03-21 07:24] VITALS: BP 137/99
[2019-03-21 15:20] VITALS: BP 128/82
[2019-03-21 19:47] VITALS: BP 115/76
[2019-03-22 04:44] VITALS: BP 115/70
[2019-03-22 08:02] VITALS: BP 126/78
== END 2019-03-22 12:14 | disposition left against medical advice (07) | DRG 194 ==
LOC: ED 17:13 → ED-I 19:20 → ED 19:41 → MS2 19:42
PROVIDERS: Family Medicine; Nurse Practitioner Family; ADMIT Internal Medicine; ATTEND Internal Medicine
DX: J18.9 Pneumonia, unspecified organism (principal); N39.0 Urinary tract infection, site not specified; Z68.1 Body mass index [BMI] 19.9 or less, adult; E11.65 Type 2 diabetes mellitus with hyperglycemia; F10.10 Alcohol abuse, uncomplicated; F15.10 Other stimulant abuse, uncomplicated; I10 Essential (primary) hypertension; E11.40 Type 2 diabetes mellitus with diabetic neuropathy, unspecified; T38.3X6A Underdosing of insulin and oral hypoglycemic [antidiabetic] drugs, initial encounter; F17.210 Nicotine dependence, cigarettes, uncomplicated; Z91.128 Patient's intentional underdosing of medication regimen for other reason; Z79.4 Long term (current) use of insulin; Z89.512 Acquired absence of left leg below knee; Z59.0 Homelessness; R63.4 Abnormal weight loss
CPT/HCPCS: G0378; J1650; Q9967

== ENCOUNTER 2019-03-23 14:07 | Emergency (ER) | payer SELFPAY ==
[~2019-03-23] VITALS: Ht 182.9 cm; Wt 59.0 kg
[2019-03-23 14:26] LABS: HEMOGLOBIN 9.4 g/dl (14.0-18.0); IMMATURE GRANULOCYTES 0.3 % (0.0-5.0); MEAN CELL VOLUME 80.3 fL CALC (80.0-100.0); MEAN CORPUSCULAR HGB CONC 32.4 g/L CALC (32.0-36.0); NEUT# 6.04 thou/uL (1.82-7.42); RED BLOOD COUNT 3.61 mill/uL (4.70-6.10); RED CELL DISTRI WIDTH 15.1 % (11.5-15.5)
[2019-03-23 14:42] LABS: ALBUMIN 2.9 g/dL (3.2-5.0); ALKALINE PHOSPHATASE 134 u/l (38-126); ANION GAP 14 (6-22 (CALC)); BUN 12 mg/dL (9-20); BUN/CREATININE RATIO 37 (12-20 (CALC)); CARBON DIOXIDE 23 mmol/l (22-30); CHLORIDE 100 mmol/l (95-108); CREATININE 0.3 mg/dL (0.7-1.3); GFR > 60 ML/MIN (>=60 (CALC)); GFR FOR AFR.AMER. > 60 ML/MIN (>=60 (CALC)); LIPASE 351 u/l (23-300); POTASSIUM 4.6 mmol/l (3.5-5.1); SGOT/AST 12 u/l (17-59); SODIUM 133 mmol/l (137-146); TOTAL PROTEIN 5.9 g/dL (6.3-8.2)
[2019-03-23 14:46] LABS: BILIRUBIN, TOTAL 0.4 mg/dL (0.0-1.4)
[2019-03-23 16:42] LABS: URINE BILIRUBIN - DIPSTICK NEGATIVE (NEGATIVE); URINE BLOOD DIPSTICK SMALL (NEGATIVE); URINE COLOR YELLOW; URINE GLUCOSE - DIPSTICK >=1000 mg/dL (NEGATIVE); URINE KETONE 15 mg/dL (NEGATIVE); URINE LEUK ESTERASE NEGATIVE (NEGATIVE); URINE NITRITE - DIPSTICK NEGATIVE (Negative); URINE PROTEIN - DIPSTICK NEGATIVE (NEG-TRACE); URINE SPECIFIC GRAVITY 1.015; URINE UROBILINOGEN - DIPSTICK 0.2 E.U./dL (0.2)
[2019-03-23 16:47] LABS: URINE RBC 0-2 RBC/hpf (0-5); URINE WBC 0-2 WBC/hpf (0-5)
[2019-03-23 17:14] VITALS: BP 154/67
== END 2019-03-23 18:05 | disposition home or self-care (01) | DRG 948 ==
LOC: ED 14:07
PROVIDERS: Family Medicine
DX: R53.83 Other fatigue (principal); S91.301A Unspecified open wound, right foot, initial encounter; I10 Essential (primary) hypertension; E11.40 Type 2 diabetes mellitus with diabetic neuropathy, unspecified; T38.3X6A Underdosing of insulin and oral hypoglycemic [antidiabetic] drugs, initial encounter; F17.210 Nicotine dependence, cigarettes, uncomplicated; X58.XXXA Exposure to other specified factors, initial encounter; Z79.4 Long term (current) use of insulin; Z89.512 Acquired absence of left leg below knee; Z91.128 Patient's intentional underdosing of medication regimen for other reason; Z59.0 Homelessness

== ENCOUNTER 2019-04-08 14:07 | Inpatient (IN) | payer SELFPAY ==
[~2019-04-08] VITALS: Ht 182.9 cm; Wt 73.3 kg
[2019-04-08] VITALS (8 sets, daily range): BP systolic 135–163; BP diastolic 90–100
--- NOTE | 2019-04-08 14:07 | NUR ---
PT TO ROOM VIA EMS
--- NOTE | 2019-04-08 14:38 | NUR ---
PT STATES THAT HE HAS BEEN UNABLE TO EAT OR DRINK FOR THE PAST 3 DAYS. AND HAS BEEN OUT OF MEDICATIONS. PT IS AOX4, IS NAUSEATED WITH BLOODY VOMIT ON FACE AND HANDS. PT IS INCONTINENT. DENIES ANY C/P, SOB . IS NAUSEATED AND WEAK.
[2019-04-08 15:25] LABS: IMMATURE GRANULOCYTES 0.5 % (0.0-5.0); MEAN CELL VOLUME 84.2 fL CALC (80.0-100.0); MEAN CORPUSCULAR HGB 25.5 pG CALC (26.0-32.0); MEAN CORPUSCULAR HGB CONC 30.3 g/L CALC (32.0-36.0); NEUT# 11.13 thou/uL (1.82-7.42); RED BLOOD COUNT 5.33 mill/uL (4.70-6.10); RED CELL DISTRI WIDTH 15.2 % (11.5-15.5)
--- NOTE | 2019-04-08 15:38 | NUR ---
PT LAYING ON STRETCHER, BEING HIGHLY VERBAL AND NEEDS AND DEMANDS. PT INFORMED OF WHAT CAN AND BE DONE TO MEET PT SATISFACTION. PT SLIGHTLY SATISFIED. IV PATENT WITH FLUIDS RUNNING.
[2019-04-08 15:43] LABS: ALKALINE PHOSPHATASE 191 u/l (38-126); AMYLASE 113 u/l (30-110); BILIRUBIN, TOTAL 0.5 mg/dL (0.0-1.4); BUN 21 mg/dL (9-20); BUN/CREATININE RATIO 18 (12-20 (CALC)); CHLORIDE 96 mmol/l (95-108); CREATININE 1.2 mg/dL (0.7-1.3); ETHYL ALCOHOL 0 mg/dl (0-30); GFR > 60 ML/MIN (>=60 (CALC)); GFR FOR AFR.AMER. > 60 ML/MIN (>=60 (CALC)); LIPASE 276 u/l (23-300); MAGNESIUM 2.1 mg/dL (1.6-2.3); SGOT/AST 13 u/l (17-59); SODIUM 138 mmol/l (137-146)
[2019-04-08 15:54] LABS: ALBUMIN 5.4 g/dL (3.2-5.0); ANION GAP 43 (6-22 (CALC)); CARBON DIOXIDE < 5 mmol/l (22-30); MYOGLOBIN 28 ng/mL (0 - 121); TOTAL PROTEIN 8.9 g/dL (6.3-8.2)
[2019-04-08 15:58] LABS: HEMATOCRIT 44.9 % (39.0-50.0); HEMOGLOBIN 13.6 g/dl (14.0-18.0)
--- NOTE | 2019-04-08 16:09 | NUR ---
PT LAYING ON STRETCHER WITH BLANKET OVER HIS HEAD. IV PATENT WITH FLUIDS RUNNING.
[2019-04-08 17:01] LABS: ACT PARTIAL THROMBO TIME 21.4 SECONDS (20.0-32.5); PROTHROMBIN TIME 10.9 SECONDS (9.0-12.5)
--- NOTE | 2019-04-08 17:09 | NUR ---
PT ASLEEP ON STRETCHER, IV PATENT WITH INSULIN RUNNING,
--- NOTE | 2019-04-08 17:40 | NUR ---
PT VOMITED COFFEE GROUND MD BEN NOTIFIED
[2019-04-08 17:51] LABS: URINE BILIRUBIN - DIPSTICK NEGATIVE (NEGATIVE); URINE BLOOD DIPSTICK NEGATIVE (NEGATIVE); URINE COLOR YELLOW; URINE GLUCOSE - DIPSTICK 500 mg/dL (NEGATIVE); URINE KETONE >=80 mg/dL (NEGATIVE); URINE LEUK ESTERASE NEGATIVE (NEGATIVE); URINE NITRITE - DIPSTICK NEGATIVE (Negative); URINE PROTEIN - DIPSTICK 30 mg/dL (NEG-TRACE); URINE SPECIFIC GRAVITY >=1.030; URINE UROBILINOGEN - DIPSTICK 0.2 E.U./dL (0.2)
[2019-04-08 18:33] LABS: BARBITURATES NEGATIVE (NEGATIVE); COCAINE NEGATIVE (NEGATIVE); METHADONE NEGATIVE (NEGATIVE); OXCYCODONE NEGATIVE (NEGATIVE); TETRAHYDROCANNABIONOL NEGATIVE (NEGATIVE); TRICYLIC ANTIDEPRESSANTS NEGATIVE (NEGATIVE)
[2019-04-08 18:36] LABS: URINE SQUAMOUS EPITHELIAL CELL FEW EPI/hpf (0-FEW)
--- NOTE | 2019-04-08 18:47 | NUR ---
ICU CALLED FOR REPORT, REPORT GIVEN
[2019-04-08 18:54] LABS: BUN 25 mg/dL (9-20); BUN/CREATININE RATIO 25 (12-20 (CALC)); CHLORIDE 103 mmol/l (95-108); GFR > 60 ML/MIN (>=60 (CALC)); GFR FOR AFR.AMER. > 60 ML/MIN (>=60 (CALC)); SODIUM 139 mmol/l (137-146)
[2019-04-08 19:02] LABS: ANION GAP 33 (6-22 (CALC)); CARBON DIOXIDE 8 mmol/l (22-30); POTASSIUM 4.6 mmol/l (3.5-5.1)
--- NOTE | 2019-04-08 19:10 | NUR ---
Admission Note Report Given to: MEREDITH GILLIAM Transported by: Wheelchair X Stretcher Transported with: X Nurse Transporter X Patent IV X O2 X Glass Laminating Operator TRANSPORTED TO ICU WITHOUT INCIDENT
--- NOTE | 2019-04-08 19:10 | NUR ---
43 yr old VERY unkept male admitted to icu1 per stretcher from er. has been incont of loose black stool & has vomitted black liquid. pt cleansed. transferred self to bed. bed weight obtained. pt requested ice. request denied. instructed pt about npo. pt verbalized understanding. cardiac technician shows sinus tach hr 128. #22 rfa. ivf began as ordered. insulin gtt cont per protochol. history obtained per pt & er record. oriented to room. mrsa swab obtained. fall & contact precautions initiated.
--- NOTE | 2019-04-08 20:35 | NUR ---
vomitted 200cc black emesis. zofran 4mg ivp given.
--- NOTE | 2019-04-08 22:00 | NUR ---
lab here. blood drawn.
--- NOTE | 2019-04-08 22:15 | NUR ---
registration notified of need for orange wrist band.
[2019-04-08 22:29] LABS: ANION GAP 27 (6-22 (CALC)); BUN 28 mg/dL (9-20); BUN/CREATININE RATIO 35 (12-20 (CALC)); CHLORIDE 104 mmol/l (95-108); CREATININE 0.8 mg/dL (0.7-1.3); GFR > 60 ML/MIN (>=60 (CALC)); GFR FOR AFR.AMER. > 60 ML/MIN (>=60 (CALC)); POTASSIUM 4.8 mmol/l (3.5-5.1); SODIUM 140 mmol/l (137-146)
[2019-04-08 22:31] LABS: CARBON DIOXIDE 14 mmol/l (22-30)
[2019-04-09] VITALS (15 sets, daily range): BP systolic 105–176; BP diastolic 68–111
--- NOTE | 2019-04-09 00:01 | NUR ---
has frequent naps. no acute distress. monitoring tech shows sinus tach hr
--- NOTE | 2019-04-09 01:40 | NUR ---
lab here. blood drawn.
--- NOTE | 2019-04-09 02:00 | NUR ---
eyes closed. no acute distress. crdiac monitor shows sinus tach hr 126.
[2019-04-09 02:08] LABS: ANION GAP 17 (6-22 (CALC)); BUN 28 mg/dL (9-20); BUN/CREATININE RATIO 40 (12-20 (CALC)); CHLORIDE 105 mmol/l (95-108); CREATININE 0.7 mg/dL (0.7-1.3); GFR > 60 ML/MIN (>=60 (CALC)); GFR FOR AFR.AMER. > 60 ML/MIN (>=60 (CALC)); POTASSIUM 4.5 mmol/l (3.5-5.1); SODIUM 139 mmol/l (137-146)
[2019-04-09 02:15] LABS: CARBON DIOXIDE 22 mmol/l (22-30)
--- NOTE | 2019-04-09 03:10 | NUR ---
nauseated. vomitted 300cc black emesis. zofran 4mg ivp given.
--- NOTE | 2019-04-09 03:30 | NUR ---
eyes closed. no further emesis.
--- NOTE | 2019-04-09 05:00 | NUR ---
am care given. kristina clark.
--- NOTE | 2019-04-09 05:33 | NUR ---
lab here. blood drawn.
[2019-04-09 06:03] LABS: ANION GAP 16 (6-22 (CALC)); BUN 28 mg/dL (9-20); BUN/CREATININE RATIO 46 (12-20 (CALC)); CARBON DIOXIDE 21 mmol/l (22-30); CHLORIDE 106 mmol/l (95-108); CREATININE 0.6 mg/dL (0.7-1.3); GFR > 60 ML/MIN (>=60 (CALC)); GFR FOR AFR.AMER. > 60 ML/MIN (>=60 (CALC)); POTASSIUM 4.8 mmol/l (3.5-5.1); SODIUM 139 mmol/l (137-146)
--- NOTE | 2019-04-09 06:45 | NUR ---
RECIEVED REPORT FROM TAWANA HARPER. ASSUMED PT CARE.
--- NOTE | 2019-04-09 07:00 | NUR ---
PT ALERT, ABLE TO MAKE NEEDS KNOWN. PT CONTINUES ASKING FOR FOOD AND DRINK, EXPLAINED TO PT NPO STATUS. PT REMAINS ON INSULIN GTTS PER PROTOCOL, BS 198. NS@150ML/HR TO 22G@RFA, NO S/S OF INFILTRATION, REDNESS OR INFECTION. PT REMAINS AFEBRILE, WHEELER REMAINS PATENT DRAINING TO BSD VIA GRAVITY. PT OFFERS NO COMPLAINTS AT THIS TIME. CALL LIGHT IN REACH. WILL MONITOR.
--- NOTE | 2019-04-09 08:30 | NUR ---
DR. CASTRO AT BEDSIDE FOR ASSESSMENT AND TO DISCUSS PLAN OF CARE. NEW ORDERS RECIEVED. PT DIET ORDERED AND DELIVERED. PT TOLERATED WELL.WILL MONITOR.
--- NOTE | 2019-04-09 09:23 | NUR ---
S: TONIO BARROSO is a 43 M who presents with foot ulcer with fat layer exposed. He has a history of uncontrolled T2DM/DKA, TMA left foot, chronic alcohol abuse, recreational drug abuse, mental disorder, HTN, DAVID, and GI bleed. All medications in patient's chart were reviewed. O: VS: BP <105/68>, P <110>, RR <16>, T <96.7> W <63.985 kg>, HT <182.88 cm>, Scr= <0.6 mg/dl>, CrCl= <146.7 ml/min> A: Blood culture is pending. Tissue culture is pending. P: Patient is scheduled to begin Zosyn 3.375 gm IV Q6H. Vancomycin ordered for pharmacy to dose. Start Vancomycin 1250 mg IV Q12H. Vancomycin trough is drawn before the 4th dose on 04/10/19 at 21:30. Vancomycin goal trough is between 10-15 mcg/ml. Pharmacy will follow and or advise on antibiotics use as needed.
--- NOTE | 2019-04-09 10:00 | NUR ---
INSULIN GTT DISCONTINUED PER DR. CASTRO. WILL MONITOR.
--- NOTE | 2019-04-09 11:30 | NUR ---
DIETARY ON UNIT, PT REPOSITIONED SELF, DEMANDING XTRA COFFEE AND SODA. PT REDIRECTED TO UTILIZE CALL LIGHT RATHER THAN YELLING OUT. PT VERBALIZED UNDERSTANDING. WILL MONITOR.
[2019-04-09 11:35] LABS: ANION GAP 15 (6-22 (CALC)); BUN 25 mg/dL (9-20); BUN/CREATININE RATIO 43 (12-20 (CALC)); CARBON DIOXIDE 22 mmol/l (22-30); CHLORIDE 104 mmol/l (95-108); CREATININE 0.6 mg/dL (0.7-1.3); GFR > 60 ML/MIN (>=60 (CALC)); GFR FOR AFR.AMER. > 60 ML/MIN (>=60 (CALC)); POTASSIUM 4.4 mmol/l (3.5-5.1); SODIUM 136 mmol/l (137-146)
--- NOTE | 2019-04-09 12:15 | NUR ---
PT FINISHED LUNCH, PT NOTED WIPING FACE AND SKIN WITH SANITIZING WIPES. PT EDUCATED ON THE RISKS, WASH BASIN SET UP. PT APPRECIATIVE. WILL MONITOR.
--- NOTE | 2019-04-09 14:06 | NUR ---
LAB AT BEDSIDE FOR BLOOD DRAW.
[2019-04-09 15:13] LABS: ANION GAP 14 (6-22 (CALC)); BUN 21 mg/dL (9-20); BUN/CREATININE RATIO 36 (12-20 (CALC)); CARBON DIOXIDE 23 mmol/l (22-30); CHLORIDE 99 mmol/l (95-108); CREATININE 0.6 mg/dL (0.7-1.3); GFR > 60 ML/MIN (>=60 (CALC)); GFR FOR AFR.AMER. > 60 ML/MIN (>=60 (CALC)); POTASSIUM 4.2 mmol/l (3.5-5.1); SODIUM 132 mmol/l (137-146)
[2019-04-09] MEDS ORDERED: NOVOLOG MIX SC (15:24)
--- NOTE | 2019-04-09 15:45 | NUR ---
DR. CARRILLO W/WOUNDCARE AT BEDSIDE FOR EVAL AND CARE. NEW ORDERS RECEIVED. WILL MONITOR.
--- NOTE | 2019-04-09 17:00 | NUR ---
LYSSA CASTAÑEDA AT BEDSIDE TO INFORM PT AN APPT FOR Friday04-12-19 AT 2:45PM WAS MADE FOR HIM AT THE HEALTH DEPT. WILL PLACE IN DISCHARGE INSTRUCTIONS.
--- NOTE | 2019-04-09 17:30 | NUR ---
NOTIFIED DR. GUTIERREZ OF PT STATUS, IN NEED OF ACCUCHECK AND S/S COVERAGE ORDERS. AWAITING CALL BACK
--- NOTE | 2019-04-09 18:25 | NUR ---
PT SLEEPING WITH BLANKETS OVER HEAD, OFFERS NO COMPLAINTS AT THIS TIME. DR. CASTRO CALLED WITH NEW ORDERS.
--- NOTE | 2019-04-09 19:05 | NUR ---
REPORT GIVEN BY RUSLAN ALEX. PATIENT IS AWAKE AND WATCHING TV IN BED. RESP EVEN AND UNLABORED. NO S/S OF DISTRESS NOTED. RIGHT FOOT ULCER DRESSING CDI. NS INFUSING AT 150 ML/HR. WHEELER DRAINING CLOUDY, YELLOW URINE. PLAN OF CARE DISCUSSED. PATIENT INFORMED TO CALL WITH ANY QUESTIONS OR CONERNS. ASSESSMENT COMPLETED AT THIS TIME.
--- NOTE | 2019-04-09 21:27 | NUR ---
PATIENT'S HS BLOODSUGAR WAS 410. WAS INFORMED OF PATIENTS BS. GAVE NEW ORDERS FOR AN ADDITONAL 4 UNITS TO BE GIVEN TO THE PATIENT.
[2019-04-10] VITALS (11 sets, daily range): BP systolic 100–122; BP diastolic 64–86
--- NOTE | 2019-04-10 00:12 | NUR ---
PATIENT RESTING WITH EYES CLOSED. NO S/S OF DISTRESS NOTED. RESP EVEN AND UNLABORED.
--- NOTE | 2019-04-10 02:15 | NUR ---
patient resting with eyes closed. resp even and unlabored. no s/s of distress noted.
--- NOTE | 2019-04-10 04:38 | NUR ---
LAB AT THE BEDSIDE DRAWING MORNING LABS
[2019-04-10 04:49] LABS: MEAN CELL VOLUME 79.6 fL CALC (80.0-100.0); MEAN CORPUSCULAR HGB 25.3 pG CALC (26.0-32.0); MEAN CORPUSCULAR HGB CONC 31.7 g/L CALC (32.0-36.0); RED BLOOD COUNT 3.88 mill/uL (4.70-6.10); RED CELL DISTRI WIDTH 15.3 % (11.5-15.5)
[2019-04-10 04:53] LABS: HEMATOCRIT 30.9 % (39.0-50.0); HEMOGLOBIN 9.8 g/dl (14.0-18.0)
[2019-04-10 05:05] LABS: ANION GAP 9 (6-22 (CALC)); BUN 15 mg/dL (9-20); BUN/CREATININE RATIO 30 (12-20 (CALC)); CARBON DIOXIDE 25 mmol/l (22-30); CHLORIDE 105 mmol/l (95-108); CREATININE 0.5 mg/dL (0.7-1.3); GFR > 60 ML/MIN (>=60 (CALC)); GFR FOR AFR.AMER. > 60 ML/MIN (>=60 (CALC)); POTASSIUM 3.9 mmol/l (3.5-5.1); SODIUM 134 mmol/l (137-146)
--- NOTE | 2019-04-10 05:39 | NUR ---
PATIENT RESTING WITH BLANKET OVER HEAD. RESP EVEN AND UNLABORED. NO S/S OF DISTRESS NOTED.
--- NOTE | 2019-04-10 06:45 | NUR ---
RECIEVED REPORT FROM ABI CELAYA. ASSUMED PT CARE.
--- NOTE | 2019-04-10 07:00 | NUR ---
PT A&OX3, ABLE TO MAKE NEEDS KNOWN. BS 168, COVERAGE ORDERED.22G TO FRA INFUSING NS@150ML/HR, NO S/S OF INFILTRATION OR INFECTION NOTED AT SITE. PT REMAIN SR ON TELEMETRY, HR 92, PT DENIES CP, SOB OR DISTRESS AT THIS TIME. ABDOMEN FLAT NON-TENDER, BSX4. LBM 10-4-19. WHEELER REMAINS PATENT , DRAINING TO BSD VIA GRAVITY , CLEAR YELLOW URINE. RLE WITH DRESSING TO FOOT, CDI. LLE BELOW THE KNEE AMP. CALL LIGHT IN REACH. WILL MONITOR.
--- NOTE | 2019-04-10 07:40 | NUR ---
PT REPOSITIONED SELF, BREAKFAST TRAY SET UP.
--- NOTE | 2019-04-10 09:15 | NUR ---
ANA PAULA GODFREY AT BEDSIDE FOR ASSESSMENT AND TO DISCUSS PLAN OF CARE.
--- NOTE | 2019-04-10 10:45 | NUR ---
PT RESTING IN BED, WATCHING TV. OFFERS NO COMPLAINTS AT THIS TIME. CALL LIGHT IN REACH. WILL MONITOR.
--- NOTE | 2019-04-10 11:37 | NUR ---
PT ASSISTED TO RECLINER, PT NEEDED MAX ASSIST, REQUESTING PAIN MEDICATION 5/10 PAIN TO L KNEE. PT 02SAT DROPPED FROM 94-97% TO 85% DURING TRANSFER, PT DENIES SOB, BUT ACCEPTS CONTINUED NEED OF 02@3LPM VIA NC. LUNCH TRAY SET UP. CALL LIGHT IN REACH, WILL MONITOR.
--- NOTE | 2019-04-10 11:56 | NUR ---
DR. CASTRO AND ANA PAULA GODFREY AT BEDSIDE FOR ASSESSMENT AND TO DISCUSS PLAN OF CARE, NEW ORDERS RECIEVED.
--- NOTE | 2019-04-10 13:25 | NUR ---
REPORT GIVEN TO TAWANA VALLADARES. PT TRANSFERRED TO MS2 . PT TOLERATED WELL.
--- NOTE | 2019-04-10 13:40 | NUR ---
PT RECEIVED FROM ICU RUSLAN, PT ARRIVED VIA HOSPITAL BED, ORIENTED TO ROOM AND CALL LIGHT, DISCUSSED POC, IVF CONTINUED. PT VOICES NO NEEDS OR COMPLAINTS AT THIS TIME, CALL LIGHT IN REACH,CONTINUE TO MONITOR.
--- NOTE | 2019-04-10 17:26 | NUR ---
PT RESTING IN BED, EATING SUPPER, NO SIGNS OF DISTRESS NOTED, IV ZOSYN HUNG PT VOICES NO NEEDS OR COMPLAINTS AT THIS TIME. CALL LIGHT IN REACH,CONTINUE TO MONITOR.
--- NOTE | 2019-04-10 18:00 | NUR ---
PT RESTING IN BED WATCHING TV, DISCUSSED WHEELER REMOVAL, VERBALIZED UNDERSTANDING. DEFLATED BALLOON 10CC OF WATER REMOVED. CATHETER INTACT. AND JEFF CARE COMPLETED. DRESSING TO RLE COMPLETED AT WELL, PT TOLERATED WELL. CALL LIGHT IN REACH,CONTINUE TO MONITOR.
--- NOTE | 2019-04-10 19:05 | NUR ---
REPORT RECEIVED FROM TAWANA GALDAMEZ. PT RESTING IN BED. NO S/S OF DISTRESS AT THIS TIME. SAFETY PRCAUTIONS IN PLACE. WILL CONTINUE TO MONITOR.
--- NOTE | 2019-04-10 19:05 | NUR ---
REPORT RECEIVED FROM TAWANA VALLADARES. PT RESTING IN BED. NO S/S OF DISTRESS AT THIS TIME. SAFETY PRCAUTIONS IN PLACE. WILL CONTINUE TO MONITOR.
--- NOTE | 2019-04-10 21:34 | NUR ---
PT RESTING IN BED. ALERT AND ORIENTED. RESPIRATIONS EVEN AND UNLABORED ON RA, LUNGS SOUND CLEAR. RUGHT PEDAL PULSE WEAK. #22 RFA APPEARS HEALTHY AND PATENT, PT COMPLAINING "THIS IV IS STARTING TO HURT, ITS GOING TO NEED TO BE CHANGED SOON". NEW IV STARTED #22 RW, PATENT AND APPEARS HEALTHY, PT TOLERATED WELL. PT PROVIDED WITH A SNACK PER REQUEST. CALL GEORGE WITHIN REACH. WILL CONTINUE TO MONITOR.
--- NOTE | 2019-04-11 01:01 | NUR ---
PT RESTING IN BED WATCHING TV. RESPIRATIONS EVEN AND UNLABORED ON RA. NO S/S OF DISTRESS AT THIS TIME. SAFETY PRECAUTIONS IN PLACE. WILL CONTINUE TO MONITOR.
[2019-04-11 04:15] VITALS: BP 127/83
--- NOTE | 2019-04-11 04:23 | NUR ---
PT RESTING IN BED. NO S/S OF DISTRESS AT THIS TIME. WILL CONTINUE TO MONITOR.
[2019-04-11 07:38] VITALS: BP 134/91
--- NOTE | 2019-04-11 07:38 | NUR ---
PT RESTING IN BED, EATING BREAKFAST, NO SIGNS OF DISTRESS NOTED, RESP EVEN AND UNLABORED. VITALS OBTAINED, DISCUSSED POC, INFORMED PT THAT SWAB OF RT FOOT RETURNED POSITIVE FOR MRSA, VERBALIZED UNDERSTANDING. STATES HE IS HAPPY WITH HIS CARE. DRESSING TO R FOOT CDI, ASSESSMENT COMPLETED, CALL LIGHT IN REACH,CONTINUE TO MONITOR.
[2019-04-11 11:25] VITALS: BP 123/79
--- NOTE | 2019-04-11 11:32 | NUR ---
PT IN BED EATING LUNCH, ACCUCHECK 477. PT MEDICATED PER HIGH DOSE SLIDING SCALE 14UNITS. CALL LIGHT IN REACH,CONTINUE TO MONITOR.
--- NOTE | 2019-04-11 13:38 | NUR ---
S: TONIO BARROSO is a 43 M who presents with DKA . He has a history of DIABETIC FOOT ULCER, DM2 . All medications in patient's chart were reviewed. 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 Vancomycin ordered for pharmacy to dose. Continiue: Vancomycin 1250mg IV Q12H. Vancomycin trough is drawn before the dose on 04/13/19 @0830. Vancomycin goal trough is between <10-15 mcg/ml>. Pharmacy will follow and or advise on antibiotics use as needed. ANGEL LUJAND
[2019-04-11 15:02] VITALS: BP 128/86
--- NOTE | 2019-04-11 16:01 | NUR ---
PT RESTING IN BED WATCHING TV, NO SIGNS OF DISTRESS NOTED, RESP EVEN AND UNLABORED. CALL LIGHT IN REACH,CONTINUE TO MONITOR.
--- NOTE | 2019-04-11 18:00 | NUR ---
PT RESTING IN BED EATING DINNER, NO SIGNS OF DISTRESS NOTED, RESP EVEN AND UNLABORED. DISCUSSED DRESSING CHANGE, PT VERBALIZED UNDERSTANDING. DRESSING TO R FOOT CHANGED AND PHOTO OBTAINED. PT TOLERATED WELL. CALL LIGHT IN REACH,CONTINUE TO MONITOR.
[2019-04-11 19:06] VITALS: BP 137/92
[2019-04-11 23:34] VITALS: BP 104/65
--- NOTE | 2019-04-12 00:15 | NUR ---
PT RESTING IN BED STATES "I DON'T FEEL GOOD" PT IS SWEATY, ACCUCHECK 110. PROVIDED WITH GRAMCRACKERS PER REQUEST. SAFETY PRECAUTIONS IN PLACE. WILL CONTINUE TO MONITOR.
--- NOTE | 2019-04-12 02:54 | NUR ---
PT SWEATY AND ASKING FOR HIS "SUGAR TO BE CHECKED", ACCUCHECK 50, PT ALERT AND ORIENTED, PROVIDED WITH ORANJE JUICE AND GRAMCRACKER AND PEANUT BUTTER, SAFETY PRECAUTIONS IN PLACE.
[2019-04-12 04:27] VITALS: BP 124/82
--- NOTE | 2019-04-12 04:55 | NUR ---
PT RESTING IN IN BED. ACCUCHECK 122. RESPIRATIONS EVEN AND UNLABORED ON RA. NO S/S OF DISTRESS AT THIS TIME. WILL CONTINUE TO MONITOR.
[2019-04-12 07:32] VITALS: BP 92/56
--- NOTE | 2019-04-12 08:00 | NUR ---
ASSESSMENT DONE. PT IS A&O X3. PT DENIES PAIN. RESPS EVEN AND UNLABORED. TELE IN PLACE. RIGHT FOOT DRESSING CDI. PT DENIES NEEDS AT THIS TIME. CALL LIGHT IN REACH.
--- NOTE | 2019-04-12 08:40 | NUR ---
PATIENT REQUESTED TO BE EVALUATED THIS AFTERNOON BECAUSE HE WANTED TO FINISH HIS BREAKFAST.
[2019-04-12] MEDS ORDERED: NOVOLIN 70/30 SC (10:33)
[2019-04-12] MEDS ORDERED: DOXYCYCL HYC100 MG PO (10:38)
--- NOTE | 2019-04-12 12:20 | NUR ---
PT IS EATING HIS LUNCH WITH NO S/S OF DISTRESS NOTED . CALL LIGHT IN REACH.
--- NOTE | 2019-04-12 14:00 | NUR ---
CHECK PT ACCU PER PT REQUEST 130. SNACK PROVIDED. CHANGE PT DRESSING TO RIGHT FOOT. PT DENIES ANY OTHER NEEDS. CALL LIGHT IN REACH.
--- NOTE | 2019-04-12 14:21 | NUR ---
Discharge instructions given. Patient verbalizes understanding of same. Discharged in stable condition via Wheelchair to Home with staff. All belongings sent with pt.
--- NOTE | 2019-04-12 14:24 | NUR ---
Patient is seen for walker aquisition. We spoke to him about following up with his PCP concerning SSI status. He does have a wheelchair for home use. He tells me he is set up for wound care. He received a FWW from us and is able to perform SPT. Patient will have follow up with the health department but otherwise should do well if he maintains good diabietic control`
== END 2019-04-12 14:15 | disposition home health service (06) | DRG 638 ==
LOC: ED 14:07 → ED-I 16:08 → ED 16:16 → ICU 16:17 → MS2 04-10 13:30
PROVIDERS: ADMIT Internal Medicine; ATTEND Internal Medicine
PROC: 0T9B70Z Drainage of Bladder with Drainage Device, Via Natural or Artificial Opening (ICD-10-PCS; principal; 2019-04-08)
PROC: 0HDMXZZ Extraction of Right Foot Skin, External Approach (ICD-10-PCS; 2019-04-09)
DX: E11.10 Type 2 diabetes mellitus with ketoacidosis without coma (principal); L97.412 Non-pressure chronic ulcer of right heel and midfoot with fat layer exposed; L03.115 Cellulitis of right lower limb; Z16.29 Resistance to other single specified antibiotic; E11.621 Type 2 diabetes mellitus with foot ulcer; E86.0 Dehydration; I10 Essential (primary) hypertension; E11.40 Type 2 diabetes mellitus with diabetic neuropathy, unspecified; L84 Corns and callosities; E11.51 Type 2 diabetes mellitus with diabetic peripheral angiopathy without gangrene; D63.8 Anemia in other chronic diseases classified elsewhere; B95.62 Methicillin resistant Staphylococcus aureus infection as the cause of diseases classified elsewhere; F17.210 Nicotine dependence, cigarettes, uncomplicated; Z79.4 Long term (current) use of insulin; Z91.19 Patient's noncompliance with other medical treatment and regimen; Z89.512 Acquired absence of left leg below knee
CPT/HCPCS: J3370

== ENCOUNTER 2019-05-06 13:03 | Emergency (ER) | payer SELFPAY ==
[~2019-05-06] VITALS: Ht 182.9 cm; Wt 86.4 kg
[~2019-05-06 13:03] MED LIST changes: +DOXYCYCL HYC100 MG PO; +NOVOLOG MIX SC
[2019-05-06 13:37] LABS: HEMOGLOBIN 10.5 g/dl (14.0-18.0); IMMATURE GRANULOCYTES 2.8 % (0.0-5.0); MEAN CORPUSCULAR HGB 24.8 pG CALC (26.0-32.0); MEAN CORPUSCULAR HGB CONC 28.5 g/L CALC (32.0-36.0); RED BLOOD COUNT 4.24 mill/uL (4.70-6.10); RED CELL DISTRI WIDTH 15.9 % (11.5-15.5)
[2019-05-06 13:46] LABS: HEMATOCRIT 36.9 % (39.0-50.0); PLATELET COUNT 654 thou/uL (130-400)
[2019-05-06 13:47] LABS: MANUAL DIFFERENTIAL YES
[2019-05-06 13:49] LABS: ALBUMIN 4.6 g/dL (3.2-5.0); ALKALINE PHOSPHATASE 158 u/l (38-126); BILIRUBIN, TOTAL 0.4 mg/dL (0.0-1.4); BUN 75 mg/dL (9-20); ETHYL ALCOHOL 0 mg/dl (0-30); SGOT/AST 16 u/l (17-59); SODIUM 128 mmol/l (137-146); TOTAL PROTEIN 7.4 g/dL (6.3-8.2)
[2019-05-06 13:53] LABS: ANION GAP 45 (6-22 (CALC)); BUN/CREATININE RATIO 21 (12-20 (CALC)); CHLORIDE 85 mmol/l (95-108); CREATININE 3.5 mg/dL (0.7-1.3); GFR 19 ML/MIN (>=60 (CALC)); GFR FOR AFR.AMER. 23 ML/MIN (>=60 (CALC)); MAGNESIUM 2.7 mg/dL (1.6-2.3)
[2019-05-06 13:54] LABS: CARBON DIOXIDE < 5 mmol/l (22-30); POTASSIUM 7.3 mmol/l (3.5-5.1)
[2019-05-06 14:32] LABS: BAND 7 % (0-8)
[2019-05-06 15:15] VITALS: BP 113/62
== END 2019-05-06 15:15 | disposition short-term general hospital (02) | DRG 871 ==
LOC: ED 13:03
PROVIDERS: Family Medicine
PROC: 0T9B70Z Drainage of Bladder with Drainage Device, Via Natural or Artificial Opening (ICD-10-PCS; principal; 2019-05-06)
PROC: 02HV33Z Insertion of Infusion Device into Superior Vena Cava, Percutaneous Approach (ICD-10-PCS; 2019-05-06)
PROC: 0BH17EZ Insertion of Endotracheal Airway into Trachea, Via Natural or Artificial Opening (ICD-10-PCS; 2019-05-06)
PROC: 5A1935Z Respiratory Ventilation, Less than 24 Consecutive Hours (ICD-10-PCS; 2019-05-06)
DX: A41.9 Sepsis, unspecified organism (principal); E11.10 Type 2 diabetes mellitus with ketoacidosis without coma; I10 Essential (primary) hypertension; E11.40 Type 2 diabetes mellitus with diabetic neuropathy, unspecified; F17.200 Nicotine dependence, unspecified, uncomplicated; Z59.0 Homelessness

== ENCOUNTER 2019-06-13 20:41 | Inpatient (IN) | payer OTHER ==
[~2019-06-13] VITALS: Ht 182.9 cm; Wt 89.4 kg
[2019-06-13 21:14] LABS: HEMATOCRIT 35.6 % (39.0-50.0); HEMOGLOBIN 10.2 g/dl (14.0-18.0); IMMATURE GRANULOCYTES 0.6 % (0.0-5.0); MEAN CELL VOLUME 81.1 fL CALC (80.0-100.0); MEAN CORPUSCULAR HGB 23.2 pG CALC (26.0-32.0); MEAN CORPUSCULAR HGB CONC 28.7 g/L CALC (32.0-36.0); NEUT# 23.46 thou/uL (1.82-7.42); RED BLOOD COUNT 4.39 mill/uL (4.70-6.10); RED CELL DISTRI WIDTH 15.4 % (11.5-15.5)
[2019-06-13 21:30] LABS: ALBUMIN 4.3 g/dL (3.2-5.0); ALKALINE PHOSPHATASE 124 u/l (38-126); BILIRUBIN, TOTAL 0.5 mg/dL (0.0-1.4); BUN 27 mg/dL (9-20); SGOT/AST 23 u/l (17-59); TOTAL PROTEIN 7.5 g/dL (6.3-8.2)
[2019-06-13 21:39] LABS: ANION GAP 38 (6-22 (CALC)); BUN/CREATININE RATIO 25 (12-20 (CALC)); CARBON DIOXIDE < 5 mmol/l (22-30); CHLORIDE 99 mmol/l (95-108); CREATININE 1.1 mg/dL (0.7-1.3); GFR > 60 ML/MIN (>=60 (CALC)); GFR FOR AFR.AMER. > 60 ML/MIN (>=60 (CALC)); POTASSIUM 5.7 mmol/l (3.5-5.1); SODIUM 136 mmol/l (137-146)
[2019-06-13 21:41] LABS: MYOGLOBIN 21 ng/mL (0 - 121)
[2019-06-13 23:57] LABS: ANION GAP 29 (6-22 (CALC)); BUN 27 mg/dL (9-20); BUN/CREATININE RATIO 27 (12-20 (CALC)); CHLORIDE 106 mmol/l (95-108); GFR > 60 ML/MIN (>=60 (CALC)); GFR FOR AFR.AMER. > 60 ML/MIN (>=60 (CALC)); POTASSIUM 4.6 mmol/l (3.5-5.1); SODIUM 140 mmol/l (137-146)
[2019-06-14] VITALS (16 sets, daily range): BP systolic 95–173; BP diastolic 55–97
[2019-06-14] LABS: CARBON DIOXIDE 10 mmol/l (22-30)
[2019-06-14 04:14] LABS: HEMATOCRIT 31.4 % (39.0-50.0); HEMOGLOBIN 9.5 g/dl (14.0-18.0); IMMATURE GRANULOCYTES 0.5 % (0.0-5.0); MEAN CELL VOLUME 76.8 fL CALC (80.0-100.0); MEAN CORPUSCULAR HGB 23.2 pG CALC (26.0-32.0); MEAN CORPUSCULAR HGB CONC 30.3 g/L CALC (32.0-36.0); NEUT# 24.32 thou/uL (1.82-7.42); RED BLOOD COUNT 4.09 mill/uL (4.70-6.10); RED CELL DISTRI WIDTH 15.5 % (11.5-15.5)
[2019-06-14 04:32] LABS: ANION GAP 20 (6-22 (CALC)); BUN 28 mg/dL (9-20); BUN/CREATININE RATIO 33 (12-20 (CALC)); CHLORIDE 110 mmol/l (95-108); CREATININE 0.9 mg/dL (0.7-1.3); GFR > 60 ML/MIN (>=60 (CALC)); GFR FOR AFR.AMER. > 60 ML/MIN (>=60 (CALC)); POTASSIUM 4.4 mmol/l (3.5-5.1); SODIUM 143 mmol/l (137-146)
[2019-06-14 04:33] LABS: CARBON DIOXIDE 17 mmol/l (22-30)
[2019-06-14 09:02] LABS: URINE BLOOD DIPSTICK NEGATIVE (NEGATIVE); URINE COLOR YELLOW; URINE GLUCOSE - DIPSTICK >=1000 mg/dL (NEGATIVE); URINE KETONE 40 mg/dL (NEGATIVE); URINE LEUK ESTERASE NEGATIVE (NEGATIVE); URINE NITRITE - DIPSTICK NEGATIVE (Negative); URINE PH 5.5 (4.5-8.0); URINE PROTEIN - DIPSTICK TRACE mg/dL (NEG-TRACE); URINE SPECIFIC GRAVITY 1.025; URINE UROBILINOGEN - DIPSTICK 0.2 E.U./dL (0.2)
[2019-06-14 09:05] LABS: URINE BILIRUBIN - DIPSTICK SMALL (NEGATIVE)
[2019-06-14 09:06] LABS: BARBITURATES NEGATIVE (NEGATIVE); COCAINE NEGATIVE (NEGATIVE); METHADONE NEGATIVE (NEGATIVE); OXCYCODONE NEGATIVE (NEGATIVE); TETRAHYDROCANNABIONOL NEGATIVE (NEGATIVE); TRICYLIC ANTIDEPRESSANTS NEGATIVE (NEGATIVE)
[2019-06-14 09:25] LABS: ANION GAP 13 (6-22 (CALC)); BUN 23 mg/dL (9-20); BUN/CREATININE RATIO 49 (12-20 (CALC)); CARBON DIOXIDE 16 mmol/l (22-30); CHLORIDE 119 mmol/l (95-108); CREATININE 0.5 mg/dL (0.7-1.3); GFR > 60 ML/MIN (>=60 (CALC)); GFR FOR AFR.AMER. > 60 ML/MIN (>=60 (CALC)); POTASSIUM 3.7 mmol/l (3.5-5.1); SODIUM 144 mmol/l (137-146)
[2019-06-14 13:24] LABS: ANION GAP 14 (6-22 (CALC)); BUN 25 mg/dL (9-20); BUN/CREATININE RATIO 38 (12-20 (CALC)); CHLORIDE 107 mmol/l (95-108); CREATININE 0.7 mg/dL (0.7-1.3); GFR > 60 ML/MIN (>=60 (CALC)); GFR FOR AFR.AMER. > 60 ML/MIN (>=60 (CALC)); POTASSIUM 3.7 mmol/l (3.5-5.1); SODIUM 141 mmol/l (137-146)
[2019-06-14 13:25] LABS: CARBON DIOXIDE 24 mmol/l (22-30)
[2019-06-14] MEDS ORDERED: QUETIAPINE FUMA25 MG PO (14:52)
[2019-06-14] MEDS ORDERED: HUMALOG100 UNIT/M SC (14:52)
[2019-06-14] MEDS ORDERED: HUMULIN 70/30 SC (14:54)
[2019-06-15 04:51] VITALS: BP 138/89
[2019-06-15 05:05] LABS: HEMATOCRIT 27.3 % (39.0-50.0); HEMOGLOBIN 8.4 g/dl (14.0-18.0); MEAN CELL VOLUME 76.3 fL CALC (80.0-100.0); MEAN CORPUSCULAR HGB 23.5 pG CALC (26.0-32.0); MEAN CORPUSCULAR HGB CONC 30.8 g/L CALC (32.0-36.0); RED BLOOD COUNT 3.58 mill/uL (4.70-6.10); RED CELL DISTRI WIDTH 15.7 % (11.5-15.5)
[2019-06-15 05:18] LABS: ANION GAP 11 (6-22 (CALC)); BUN 16 mg/dL (9-20); BUN/CREATININE RATIO 29 (12-20 (CALC)); CARBON DIOXIDE 23 mmol/l (22-30); CHLORIDE 105 mmol/l (95-108); CREATININE 0.6 mg/dL (0.7-1.3); GFR > 60 ML/MIN (>=60 (CALC)); GFR FOR AFR.AMER. > 60 ML/MIN (>=60 (CALC)); POTASSIUM 3.5 mmol/l (3.5-5.1); SODIUM 136 mmol/l (137-146)
[2019-06-15 07:45] VITALS: BP 183/104
[2019-06-15 10:00] VITALS: BP 176/101
[2019-06-15 15:35] VITALS: BP 133/83
[2019-06-15 19:07] VITALS: BP 136/86
[2019-06-16] VITALS (7 sets, daily range): BP systolic 120–148; BP diastolic 66–86
[2019-06-17 04:00] VITALS: BP 106/53
[2019-06-17 08:05] VITALS: BP 129/83
[2019-06-17 11:24] VITALS: BP 103/66
[2019-06-17] MEDS ORDERED: HUMALOG100 UNIT/M SC (13:50)
[2019-06-17] MEDS ORDERED: HUMULIN 70/30 SC (13:50)
== END 2019-06-17 14:20 | disposition home or self-care (01) | DRG 639 ==
LOC: ED 20:41 → ED-I 21:48 → ED 22:02 → MS2 22:03 → ICU 22:03 → MS2 06-14 12:04
PROVIDERS: Family Medicine; ADMIT Internal Medicine; ATTEND Internal Medicine
DX: E11.10 Type 2 diabetes mellitus with ketoacidosis without coma (principal); I10 Essential (primary) hypertension; E11.42 Type 2 diabetes mellitus with diabetic polyneuropathy; F17.200 Nicotine dependence, unspecified, uncomplicated; T38.3X6A Underdosing of insulin and oral hypoglycemic [antidiabetic] drugs, initial encounter; D63.8 Anemia in other chronic diseases classified elsewhere; Z79.4 Long term (current) use of insulin; Z91.120 Patient's intentional underdosing of medication regimen due to financial hardship; Z89.512 Acquired absence of left leg below knee; Z87.11 Personal history of peptic ulcer disease; Z59.0 Homelessness
CPT/HCPCS: J1650

== ENCOUNTER 2019-08-03 | Emergency (ER) | payer OTHER ==
[~2019-08-03] MED LIST changes: +HUMALOG100 UNIT/M SC; +HUMULIN 70/30 SC; +QUETIAPINE FUMA25 MG PO
--- NOTE | 2019-08-03 14:15 | NUR ---
PT INTUBATED DUE RESP DISTRESS ORALLY INTUBATED W/ 8.0 ET TUBE ORALLY AT 22CM CODY ON 1ST ATTEMPT BY ER PHYSICIAN PLACED ON VENT SETTINGS ON FLOW SHEET ALARMS ON AND AUDIBLE CONFIRMED PLACEMENT VIA AUSCULTATION CO2 DETECTOR AND CHEST FILM ABG PENDING
[2019-08-03 16:25] LABS: INTERNATIONAL NORMALIZED RATIO 1.2 RATIO (0.7-1.3); PROTHROMBIN TIME 12.4 SECONDS (9.0-12.5)
[2019-08-03 16:29] LABS: ETHYL ALCOHOL 0 mg/dl (0-30)
[2019-08-03 16:31] LABS: ALKALINE PHOSPHATASE 107 u/l (38-126); BILIRUBIN, TOTAL 0.5 mg/dL (0.0-1.4); BUN 68 mg/dL (9-20); CHLORIDE 94 mmol/l (95-108); LIPASE 121 u/l (23-300); MAGNESIUM 2.8 mg/dL (1.6-2.3); SGOT/AST 32 u/l (17-59); SODIUM 135 mmol/l (137-146); TOTAL PROTEIN 6.6 g/dL (6.3-8.2)
[2019-08-03 16:50] LABS: ANION GAP 44 (6-22 (CALC)); BUN/CREATININE RATIO 23 (12-20 (CALC)); CREATININE 2.9 mg/dL (0.7-1.3); GFR 24 ML/MIN (>=60 (CALC)); GFR FOR AFR.AMER. 29 ML/MIN (>=60 (CALC))
[2019-08-03 16:51] LABS: CARBON DIOXIDE < 5 mmol/l (22-30); POTASSIUM 7.5 mmol/l (3.5-5.1)
[2019-08-03 16:55] LABS: HEMATOCRIT 36.4 % (39.0-50.0); HEMOGLOBIN 9.6 g/dl (14.0-18.0); IMMATURE GRANULOCYTES 6.1 % (0.0-5.0); MEAN CELL VOLUME 89.2 fL CALC (80.0-100.0); MEAN CORPUSCULAR HGB 23.5 pG CALC (26.0-32.0); MEAN CORPUSCULAR HGB CONC 26.4 g/L CALC (32.0-36.0); PLATELET COUNT 641 thou/uL (130-400); RED BLOOD COUNT 4.08 mill/uL (4.70-6.10); RED CELL DISTRI WIDTH 17.7 % (11.5-15.5)
[2019-08-03 16:56] LABS: BAND 6 % (0-8); IMMATURE CELLS 1 %; MANUAL DIFFERENTIAL YES
[2019-08-03 17:02] LABS: TSH, 3RD GENERATION 3.31 uIU/mL (0.47 - 4.68)
[2019-08-03 18:22] LABS: URINE BILIRUBIN - DIPSTICK NEGATIVE (NEGATIVE); URINE BLOOD DIPSTICK MODERATE (NEGATIVE); URINE COLOR YELLOW; URINE GLUCOSE - DIPSTICK 250 mg/dL (NEGATIVE); URINE KETONE >=80 mg/dL (NEGATIVE); URINE LEUK ESTERASE TRACE (NEGATIVE); URINE NITRITE - DIPSTICK NEGATIVE (Negative); URINE PH 5.5 (4.5-8.0); URINE PROTEIN - DIPSTICK >=300 mg/dL (NEG-TRACE); URINE SPECIFIC GRAVITY >=1.030; URINE UROBILINOGEN - DIPSTICK 0.2 E.U./dL (0.2)
[2019-08-03 18:26] LABS: BARBITURATES NEGATIVE (NEGATIVE); COCAINE NEGATIVE (NEGATIVE); METHADONE NEGATIVE (NEGATIVE); OXCYCODONE NEGATIVE (NEGATIVE); TETRAHYDROCANNABIONOL NEGATIVE (NEGATIVE); TRICYLIC ANTIDEPRESSANTS NEGATIVE (NEGATIVE)
[2019-08-03 18:39] LABS: URINE SQUAMOUS EPITHELIAL CELL FEW EPI/hpf (0-FEW); URINE YEAST MANY hpf
[2020-02-19] MEDS ORDERED: BACTRIM DS1 TAB PO (18:56)
== END 2019-08-03 18:37 | disposition short-term general hospital (02) ==
PROVIDERS: Family Medicine
DX: A41.9 Sepsis, unspecified organism (principal); R65.21 Severe sepsis with septic shock; E11.10 Type 2 diabetes mellitus with ketoacidosis without coma; E87.5 Hyperkalemia; K92.2 Gastrointestinal hemorrhage, unspecified; D63.8 Anemia in other chronic diseases classified elsewhere; I10 Essential (primary) hypertension; E11.40 Type 2 diabetes mellitus with diabetic neuropathy, unspecified; F17.200 Nicotine dependence, unspecified, uncomplicated; Z79.4 Long term (current) use of insulin; Z89.512 Acquired absence of left leg below knee
CPT/HCPCS: J2354

== ENCOUNTER 2019-09-01 20:17 | Inpatient (IN) | payer OTHER ==
[~2019-09-01] VITALS: Ht 182.9 cm; Wt 74.5 kg
--- NOTE | 2019-09-01 20:30 | NUR ---
UNABLE TO DO STROKE SCALE AT THIS TIME. PT.UNCOOPERATIVE. UNABLE TO FOLLOW DIRECTIONS. OR COMMANDS.
--- NOTE | 2019-09-01 20:44 | NUR ---
EMS BROUGHT PT. TO ER FOUND ON THE SIDE OF THE ROAD. PT. TAKING IN SLURRED SPEACH, LUNGS CLEAR RESP. RAPID O2 SAT ON RA 100%. ACCU CHECK BY EMS 587. ACCUCHECK BY ER HI. EMS IO TO RIGHT LOWER EXT. NS INFUSING WELL, NO REDNESS OR EDEMA NOTED.
[2019-09-01 21:29] LABS: HEMATOCRIT 37.4 % (39.0-50.0); HEMOGLOBIN 10.1 g/dl (14.0-18.0); IMMATURE GRANULOCYTES 0.9 % (0.0-5.0); MEAN CELL VOLUME 88.8 fL CALC (80.0-100.0); NEUT# 19.68 thou/uL (1.82-7.42); RED BLOOD COUNT 4.21 mill/uL (4.70-6.10); RED CELL DISTRI WIDTH 19.1 % (11.5-15.5)
[2019-09-01 21:54] LABS: ALBUMIN 4.6 g/dL (3.2-5.0); ALKALINE PHOSPHATASE 105 u/l (38-126); BILIRUBIN, TOTAL 0.5 mg/dL (0.0-1.4); BUN 55 mg/dL (9-20); BUN/CREATININE RATIO 19 (12-20 (CALC)); CHLORIDE 94 mmol/l (95-108); CREATININE 2.9 mg/dL (0.7-1.3); GFR 24 ML/MIN (>=60 (CALC)); GFR FOR AFR.AMER. 29 ML/MIN (>=60 (CALC)); SGOT/AST 14 u/l (17-59); SODIUM 136 mmol/l (137-146); TOTAL PROTEIN 7.1 g/dL (6.3-8.2)
[2019-09-01 22:08] LABS: MYOGLOBIN 191 ng/mL (0 - 121)
[2019-09-01 22:16] LABS: ANION GAP 45 (6-22 (CALC))
[2019-09-01 22:17] LABS: CARBON DIOXIDE < 5 mmol/l (22-30); POTASSIUM 7.7 mmol/l (3.5-5.1)
[2019-09-01 22:39] LABS: URINE BILIRUBIN - DIPSTICK NEGATIVE (NEGATIVE); URINE BLOOD DIPSTICK SMALL (NEGATIVE); URINE COLOR YELLOW; URINE GLUCOSE - DIPSTICK >=1000 mg/dL (NEGATIVE); URINE KETONE >=80 mg/dL (NEGATIVE); URINE LEUK ESTERASE NEGATIVE (NEGATIVE); URINE NITRITE - DIPSTICK NEGATIVE (Negative); URINE PH 5.5 (4.5-8.0); URINE PROTEIN - DIPSTICK TRACE mg/dL (NEG-TRACE); URINE SPECIFIC GRAVITY >=1.030; URINE UROBILINOGEN - DIPSTICK 0.2 E.U./dL (0.2)
[2019-09-01 23:09] LABS: URINE SQUAMOUS EPITHELIAL CELL FEW EPI/hpf (0-FEW)
--- NOTE | 2019-09-01 23:26 | NUR ---
INSULIN GTT STARTED PER MD ORDER.
--- NOTE | 2019-09-01 23:29 | NUR ---
SQ LOVENOX GIVEN PER MD ORDER.
[2019-09-02] VITALS (24 sets, daily range): BP systolic 93–176; BP diastolic 56–103
--- NOTE | 2019-09-02 00:01 | NUR ---
Admission Note Report Given to: AMAURI Transported by: Wheelchair X Stretcher Transported with: X Nurse Transporter X Patent IV O2 X [employer] Administrator Location: X ICU MS2
--- NOTE | 2019-09-02 00:10 | NUR ---
PT. TAKEN TO ICU VIA STRETCHER.
--- NOTE | 2019-09-02 00:35 | NUR ---
LAB HERE TO TAKE STAT GLUCOSE
--- NOTE | 2019-09-02 01:10 | NUR ---
DR MCPHERSON CALLED AT ER TO NOTIFY OF PATIENT'S CRITICAL BLOOD SUGAR, NEW ORDERS RECEIVED.
[2019-09-02 02:20] LABS: BUN 63 mg/dL (9-20); BUN/CREATININE RATIO 24 (12-20 (CALC)); CHLORIDE 100 mmol/l (95-108); CREATININE 2.6 mg/dL (0.7-1.3); GFR 27 ML/MIN (>=60 (CALC)); GFR FOR AFR.AMER. 33 ML/MIN (>=60 (CALC)); SODIUM 141 mmol/l (137-146)
[2019-09-02 02:23] LABS: ANION GAP 42 (6-22 (CALC)); CARBON DIOXIDE < 5 mmol/l (22-30)
[2019-09-02 02:24] LABS: POTASSIUM 6.1 mmol/l (3.5-5.1)
--- NOTE | 2019-09-02 02:45 | NUR ---
PATIENT IS ABLE TO SCOOT TO BED WITH VERBAL CUEING. PATIENT ORIENTED TO NAME, , AND CURRENT YEAR. PT IS DROWSY, NOT ABLE TO STAY AWAKE TO ANSWER QUESTIONS. POOR HISTORIAN. HAS ODOROUS SMELL OF URINE. HAS ABRASIONS ON RIGHT FOOT, RIGHT HEEL, LEFT STUMP BANDAGE TAKEN OFF, DRESSING APPLIED TO RIGHT FOOT. PICS IN CHART. ON RA, SATS 100%. ST ON TELEMETRY. AFEBRILE. RH 22G IV INTACT, HAS INSULIN DRIP INFUSING AT 5 UNITS/HR. MRSA SWAB SENT TO LAB FOR HSITORY, ON CONTACT PRECAUTIONS. HAS TO BE REASSURED AND REORIENTED EACH TIME. CALL LIGHT WITHIN REACH.
--- NOTE | 2019-09-02 04:19 | NUR ---
PATIENT VOMITTED LARGE AMOUNT OF DARK BROWN EMESIS, NO MAL ODOR NOTED. ZOFRAN GIVEN, BED BATHE PROVIDED, LINENS CHANGED. HOB 30 DEGREES, EMESIS BAG PROVIDED. CALL LIGHT WITHIN REACH.
--- NOTE | 2019-09-02 05:37 | NUR ---
PATIENT HAS ANOTHER EPISODE OF EMESIS, LARGE AMOUNT, DARK BROWN. ALSO INCONTINENT OF BOWEL AND BLADDER. WASHED UP AND LINEN CHANGED.
[2019-09-02 06:07] LABS: CREATININE 1.8 mg/dL (0.7-1.3)
[2019-09-02 06:21] LABS: POTASSIUM 5.2 mmol/l (3.5-5.1)
--- NOTE | 2019-09-02 07:10 | NUR ---
REPORT RECEIVED FROM ABI FREED. PT RESTING IN BED ON RIGHT SIDE; DROWSY AND LIGHTLY MOANING. ORIENTED X 2; STATES THAT HE IS IN [place]. OPENS EYES ON COMMAND AND ANSWERS SIMPLE QUESTIONS OTHERWISE KEEPS EYES CLOSED. INCONTINENT OF LARGE URINE; LINENS CHANGED AND HYGIENE PROVIDED. LUNGS ARE DIMINISHED; RESPIRATIONS EVEN AND UNLABORED ON ROOM AIR. PT C/O MILD GENERALIZED PAIN. INSULIN DRIP INFUSING AT 5 UNITS/HR; BLOOD SUGAR 365; TITRATED DOWN TO 4 UNITS/HR. 1/2 NS INFUSING AT 125 ML/HR PER DKA PROTOCOL. SAFETY MEASURES IN PLACE. CALL LIGHT WITHIN REACH.
--- NOTE | 2019-09-02 08:15 | NUR ---
DR. CASTRO AT BEDSIDE.
--- NOTE | 2019-09-02 09:42 | NUR ---
LAB AT BEDSIDE.
[2019-09-02 10:31] LABS: ANION GAP 19 (6-22 (CALC)); BUN 79 mg/dL (9-20); BUN/CREATININE RATIO 55 (12-20 (CALC)); CHLORIDE 109 mmol/l (95-108); CREATININE 1.5 mg/dL (0.7-1.3); GFR 52 ML/MIN (>=60 (CALC)); GFR FOR AFR.AMER. > 60 ML/MIN (>=60 (CALC)); SODIUM 139 mmol/l (137-146)
[2019-09-02 10:32] LABS: CARBON DIOXIDE 16 mmol/l (22-30)
--- NOTE | 2019-09-02 10:34 | NUR ---
ANION GAP REMAINS OPEN WITH ELEVATED BLOOD SUGARS. WILL CONTINUE HALF NORMAL SALINE PER DKA PROTOCOL. INSULIN DRIP INFUSING AT 5 UNITS/HR.
[2019-09-02 11:04] LABS: COCAINE NEGATIVE (NEGATIVE); METHADONE NEGATIVE (NEGATIVE); TETRAHYDROCANNABIONOL NEGATIVE (NEGATIVE)
[2019-09-02 11:05] LABS: BARBITURATES NEGATIVE (NEGATIVE); OXCYCODONE NEGATIVE (NEGATIVE); TRICYLIC ANTIDEPRESSANTS NEGATIVE (NEGATIVE)
--- NOTE | 2019-09-02 13:57 | NUR ---
INSULIN TITRATED DOWN TO 3 UNITS/HR; BS 275. PT REMAINS DROWSY. HAS NOT EATEN MEALS. UNCOOPERATE WITH CM AND PHARMACY DUE TO ILLNESS. REPOSITIONING SELF IN BED. SINUS TACH ON SPINNING BATH PERSON. IV SITES APPEAR HEALTHY.
[2019-09-02 15:10] LABS: ANION GAP 15 (6-22 (CALC)); BUN 75 mg/dL (9-20); BUN/CREATININE RATIO 68 (12-20 (CALC)); CARBON DIOXIDE 18 mmol/l (22-30); CHLORIDE 113 mmol/l (95-108); CREATININE 1.1 mg/dL (0.7-1.3); GFR > 60 ML/MIN (>=60 (CALC)); GFR FOR AFR.AMER. > 60 ML/MIN (>=60 (CALC)); POTASSIUM 4.9 mmol/l (3.5-5.1); SODIUM 141 mmol/l (137-146)
--- NOTE | 2019-09-02 17:55 | NUR ---
PT RESTING WITH EYES CLOSED ON RIGHT SIDE AND NO SIGNS OF DISTRESS. RESPIRATIONS EVEN AND UNLABORED ON ROOM AIR. REMAINS TACHY ON MONITOR; ASYMPTOMATIC. SAFETY MEASURES IN PLACE. CALL LIGHT WITHIN REACH.
[2019-09-02 18:50] LABS: BUN 68 mg/dL (9-20); BUN/CREATININE RATIO 64 (12-20 (CALC)); CHLORIDE 112 mmol/l (95-108); CREATININE 1.1 mg/dL (0.7-1.3); GFR > 60 ML/MIN (>=60 (CALC)); GFR FOR AFR.AMER. > 60 ML/MIN (>=60 (CALC)); POTASSIUM 4.2 mmol/l (3.5-5.1); SODIUM 141 mmol/l (137-146)
[2019-09-02 18:51] LABS: ANION GAP 11 (6-22 (CALC)); CARBON DIOXIDE 22 mmol/l (22-30)
--- NOTE | 2019-09-02 19:00 | NUR ---
REPORT GIVEN BY FREDI ALEX. PATIENT IN BED LAYING ON HIS SIDE. ALERT TO SELF AND TIME. RESP EVEN AND UNLABORED. C/O NAUSEA. INSULIN DRIP INFUSING. WOUNDS PRESENT BLE AND OPEN TO AIR. EMDEMA PRESENT ON LEFT BLEOW THE KNEE AMP. PLAN OF CARE DISCUSSED. PATIENT INFORMED TO CALL WITH ANY QUESTIONS OR CONCERNS. FALL PRECATUIONS IN PLACE.
--- NOTE | 2019-09-02 19:50 | NUR ---
FLUIDS CHANGED PER PROTOCOL
--- NOTE | 2019-09-02 21:30 | NUR ---
INSULIN DRIP TITRATED
--- NOTE | 2019-09-02 22:30 | NUR ---
PLACING NEW ORDERS FOR THE PATIENT.
[2019-09-03] VITALS (9 sets, daily range): BP systolic 101–169; BP diastolic 65–101
--- NOTE | 2019-09-03 00:04 | NUR ---
NPH INSUIN GIVEN AT 2304, BLOOD GLUCOSE 257. INSULIN DRIP TURNED OF PER INSULIN PROTOCOL. PATIENT RESTING IN BED WITH EYES CLOSED. RESP EVEN AND UNLABORED. NO S/S OF DISTRESS NOTED.
--- NOTE | 2019-09-03 01:55 | NUR ---
PATIENT RESTING WITH EYES CLOSED. RESP EVEN AND UNLABORED. NO S/S OF DISTRESS NOTED.
--- NOTE | 2019-09-03 04:00 | NUR ---
PATIENT RESTING WITH EYES CLOSED. RESP EVEN AND UNLABORED. NO S/S OF DISTRESS NOTED.
--- NOTE | 2019-09-03 05:06 | NUR ---
PATIENT WAS OFFERED A BATH THIS MORNING AND RUFSED. HE STATED THAT HE WOULD LIKE TO WAIT UNTIL LATER FOR A BATH.
--- NOTE | 2019-09-03 05:10 | NUR ---
PATIENT DISLODGED IV SITE IN R HAND
[2019-09-03 05:26] LABS: MEAN CORPUSCULAR HGB CONC 30.8 g/L CALC (32.0-36.0); RED BLOOD COUNT 3.25 mill/uL (4.70-6.10); RED CELL DISTRI WIDTH 19.8 % (11.5-15.5)
[2019-09-03 05:41] LABS: HEMATOCRIT 25.3 % (39.0-50.0); HEMOGLOBIN 7.8 g/dl (14.0-18.0); MEAN CELL VOLUME 77.8 fL CALC (80.0-100.0)
[2019-09-03 05:47] LABS: ANION GAP 12 (6-22 (CALC)); BUN 52 mg/dL (9-20); BUN/CREATININE RATIO 57 (12-20 (CALC)); CARBON DIOXIDE 21 mmol/l (22-30); CHLORIDE 112 mmol/l (95-108); CREATININE 0.9 mg/dL (0.7-1.3); GFR > 60 ML/MIN (>=60 (CALC)); GFR FOR AFR.AMER. > 60 ML/MIN (>=60 (CALC)); POTASSIUM 3.7 mmol/l (3.5-5.1); SODIUM 142 mmol/l (137-146)
--- NOTE | 2019-09-03 07:30 | NUR ---
PT RESTING IN BED WITH EYES CLOSED. AROUSES TO VERBAL STIMULI. PT IS ALERT TO PERSON AND TIME. REORIENTED TO PLACE. SHIFT ASSESSMENT COMPLETED AT THIS TIME. IV PATENT X1. CALL LIGHT IN REACH. WILL CONTINUE TO MONITOR.
--- NOTE | 2019-09-03 07:55 | NUR ---
PT SET UP FOR AM MEAL
--- NOTE | 2019-09-03 10:00 | NUR ---
PT RESTING IN BED WITH EYES CLOSED. RESP ARE EVEN AND UNLABORED. NO DISTRESS NOTED. CALL LIGHT IN REACH. WILL CONTINUE TO MONITOR.
--- NOTE | 2019-09-03 11:11 | NUR ---
DR CASTRO AT BEDSIDE AT THIS TIME
--- NOTE | 2019-09-03 11:30 | NUR ---
PT SET UP FOR NOON MEAL
--- NOTE | 2019-09-03 12:09 | NUR ---
PT RESTING IN BED WITH EYES CLOSED. RESP ARE EVEN AND UNLABORED. NO DISTRESS NOTED. CALL LIGHT IN REACH. WILL CONTINUE TO MONITOR.
--- NOTE | 2019-09-03 12:15 | NUR ---
REPORT CALLED TO NOLAN ALEX ON [facility]
--- NOTE | 2019-09-03 12:30 | NUR ---
REPORT RECEIVED FROM BERE IN ICU, PT TRANSPORTED IN BED TO UNIT BY ICU STAFF, HIS HEAD IS COVERED AND HE DOES NOT WANT TO REMOVE COVERS, BARELY ANSWERS TO QUESTIONS, WILL CONTINUE TO MONITOR.
--- NOTE | 2019-09-03 12:30 | NUR ---
PT TRANSFERRED TO [facility] ROOM 267 VIA BED. PT TOLERATED TRANSFER WELL.
--- NOTE | 2019-09-03 16:21 | NUR ---
WENT TO ASSESS PT, FOUND TOES ON RIGHT LEG PRESSING AGAINST FOOT BOARD ON BED, ASKEP PT TO MOVE UP IN BED TO RELIEVE PRESSURE, HE SAID "I CAN'T" I TOLD HIM WE EXECUTIVE CANDIDATE DEVELOPER AND MYSELF WERE GOING TO ASSIST HIM UP, HE REFUSED TO HAVE HIS HEAD LOWERED TO BE PULLED UP IN BED DEMANDING WE ELEVATE HOB, BED WAS LOWERED AND WE LEFT PT IN HIS ORIGINAL POSITION.
--- NOTE | 2019-09-03 19:25 | NUR ---
PT SLEEPING W/BLANKET OVER HEAD. REPORT RECEIVED BEDSIDE FROM DAY NURSE. NO S/O DISTRESS NOTED AT THIS TIME.
--- NOTE | 2019-09-03 22:00 | NUR ---
UPON ENTERING ROOM PT HEAD WAS STILL COVERED W/BLANKET, BUT AWOKE AND RESPONDED TO MY VOICE. PT MEDICATIONS DISCUSSED AND ADMINISTERED AT THIS TIME. ATTEMPTS WERE MADE FOR ASSESSMENT, PT PARTIALLY COOPERATIVE. REFUSED PICTURES FOR THE CHART OF WOUNDS TO R.FOOT (TOES). I ATTEMPTED TO REPOSITION PT IN BED SO THAT HIS FEET WERE NOT ON THE END OF THE BED AND TO ELEVATE FOOT TO PREVENT IT FROM GETTING AGAINST BED, BUT HE REFUSED REPSOITIONING OR ELEVATING FOOT. SNACK PROVIDED. WILL CONTINUE TO MONITOR AND ATTEMPT ASSESSMENT MUCH PT WILL ALLOW. NO S/O DISTRESS, PT COVERED HIS HEAD AGAIN PRIOR TO MY LEAVING ROOM.
--- NOTE | 2019-09-04 02:34 | NUR ---
PT IS SLEEPING AT THIS TIME W/LIGHTS AND TV OFF HEAD COVERED BY BLANKET. NO S/O DISTRESS.
--- NOTE | 2019-09-04 04:20 | NUR ---
SAIL REPAIR PERSON IN OBTAINING V/S. PT AWAKE AND TALKING TO ME CLEARLY, BUT STATING HE DOESN'T WANT ANY TREATMENT. NO S/O DISTRESS.
--- NOTE | 2019-09-04 04:35 | NUR ---
BP REASSESSED AT THIS TIME. PT WAS SLEEPING WHEN I ENTERED THE ROOM, APPEARS VERY AGITATED AT ANY ATTEMPTS OF TREATMENT, STATING IT WON'T MATTER IF MY BP IS LOW, I DON'T WANT ANYTHING FOR IT. I EXPLAINED TO PT THAT WE MAY NEED TO GET SOME FLUIDS IF IT IS STILL LOW, HE REPLIED THAT HE WILL NOT HAVE THE FLUIDS EVEN IF I GET THEM. BP WAS SLIGHTLY BETTER AT 89/57. WILL CONTINUE TO MONITOR CLOSELY PT ALLOWS. PT FELT SLIGHTLY CLAMMY I WAS CHECKING BP AND ASKED PT IF I COULD CHECK HIS SUGAR, HE REPLIED, "NO, MY SUGAR IS FINE, I KNOW WHEN IT'S NOT AND IT'S FINE."
[2019-09-04 04:40] VITALS: BP 89/57
[2019-09-04 05:50] LABS: HEMATOCRIT 24.6 % (39.0-50.0); HEMOGLOBIN 7.4 g/dl (14.0-18.0); MEAN CELL VOLUME 81.2 fL CALC (80.0-100.0); MEAN CORPUSCULAR HGB 24.4 pG CALC (26.0-32.0); MEAN CORPUSCULAR HGB CONC 30.1 g/L CALC (32.0-36.0); RED BLOOD COUNT 3.03 mill/uL (4.70-6.10); RED CELL DISTRI WIDTH 19.9 % (11.5-15.5)
[2019-09-04 06:13] LABS: ANION GAP 7 (6-22 (CALC)); BUN 30 mg/dL (9-20); BUN/CREATININE RATIO 48 (12-20 (CALC)); CARBON DIOXIDE 24 mmol/l (22-30); CHLORIDE 111 mmol/l (95-108); CREATININE 0.6 mg/dL (0.7-1.3); GFR > 60 ML/MIN (>=60 (CALC)); GFR FOR AFR.AMER. > 60 ML/MIN (>=60 (CALC)); POTASSIUM 3.6 mmol/l (3.5-5.1); SODIUM 138 mmol/l (137-146)
--- NOTE | 2019-09-04 06:34 | NUR ---
LAB CALLED W/CRITICAL BLOOD GLUCOSE OF 38. PT WAS ASYMPTOMATIC, RESPONSIVE, MILDLY CLAMMY. PT PROVIDED ORANGE JUICE W/SUGAR IMMEDIATELY AND DEXTROSE 10% ADMINISTERED ALONG W/SANDWICH PROVIDED. PHYSICIAN WILL BE NOTIFIED OF CRITICAL.
--- NOTE | 2019-09-04 06:46 | NUR ---
PT BLOOD SUGAR @150 PER ACCU CHECK
--- NOTE | 2019-09-04 07:20 | NUR ---
PHYSICIAN NOTIFIED OF GLUCOSE LEVEL AND NEW ORDERS RECEIVED.
[2019-09-04 07:30] VITALS: BP 134/68
--- NOTE | 2019-09-04 08:15 | NUR ---
PATIENT A.OX4, NO S/S RESP DISTRESS, PATIENT ON ROOM AIR, NO C/O PAIN, PATIENT LEFT BKA, PATIENT AGITATED, PATIENT STATED HE NEEDS TO GO TO THE "[facility]" TO GET DEBIT CARD FROM FRIEND, RECOMMEND PATIENT TO CALL BANK TO HAVE CARD TURN OFF WHILE IN HOSPITAL, PATIENT CONTINUE TO REQUEST TO HOME TODAY, NOTIFIED RRTS AND ARABIC TRANSLATOR ABOUT PATIENT REQUEST, PATIENT IS HOMELESS PCP AWARE, PATIENT HEART RHYTHM NORMAL SINUS, WILL CONTINUE TO MONITOR PATIENT, CALL LIGHT
[2019-09-04 09:38] VITALS: BP 134/68
--- NOTE | 2019-09-04 11:44 | NUR ---
PATIENT A/OX4, NO S/S RESP DISTRESS, PATIENT ON ROOM AIR, PATIENT NO C/O PAIN, PATIENT BLOOD GLUCOSE 402 PATIENT REFUSED TREATMENT FOR ELEVATED GLUCOSE LEVEL, PATIENT CONTINUES TO DEMAND TO BE DISCHARGED, PATIENT STATED HE NEED TO "[facility]" NOW TO GET DEBIT CARD FROM FRIEND, EDUCATED THE PATIENT ABOUT THE POTENTIAL MEDICAL RISKS OF REFUSING CARE AND LEAVING AGAINST MEDICAL ADVICE, PATIENT UNDERSTOOD TEACHING, NOTIFIED AND HOSPITAL DIRECTOR OF DIAGNOSTIC IMAGING
== END 2019-09-04 11:43 | disposition left against medical advice (07) | DRG 638 ==
LOC: ED 20:17 → ED-I 22:39 → ED 22:56 → ICU 22:57 → MS2 09-03 12:35
PROVIDERS: Family Medicine; Internal Medicine; ADMIT Internal Medicine; ATTEND Internal Medicine
DX: E11.10 Type 2 diabetes mellitus with ketoacidosis without coma (principal); N17.9 Acute kidney failure, unspecified; I10 Essential (primary) hypertension; E11.40 Type 2 diabetes mellitus with diabetic neuropathy, unspecified; D63.8 Anemia in other chronic diseases classified elsewhere; E87.5 Hyperkalemia; F19.10 Other psychoactive substance abuse, uncomplicated; T38.3X6A Underdosing of insulin and oral hypoglycemic [antidiabetic] drugs, initial encounter; F17.200 Nicotine dependence, unspecified, uncomplicated; Z59.0 Homelessness; Z89.512 Acquired absence of left leg below knee; Z91.128 Patient's intentional underdosing of medication regimen for other reason; Z79.4 Long term (current) use of insulin
CPT/HCPCS: J1650

== ENCOUNTER 2019-09-08 18:50 | Inpatient (IN) | payer OTHER ==
[~2019-09-08] VITALS: Ht 182.9 cm; Wt 77.0 kg
[2019-09-08 19:15] LABS: HEMATOCRIT 26.5 % (39.0-50.0); HEMOGLOBIN 7.8 g/dl (14.0-18.0); IMMATURE GRANULOCYTES 0.5 % (0.0-5.0); MEAN CELL VOLUME 84.4 fL CALC (80.0-100.0); MEAN CORPUSCULAR HGB 24.8 pG CALC (26.0-32.0); MEAN CORPUSCULAR HGB CONC 29.4 g/L CALC (32.0-36.0); NEUT# 14.23 thou/uL (1.82-7.42); RED BLOOD COUNT 3.14 mill/uL (4.70-6.10); RED CELL DISTRI WIDTH 20.3 % (11.5-15.5)
[2019-09-08 19:36] LABS: ALBUMIN 3.7 g/dL (3.2-5.0); ALKALINE PHOSPHATASE 115 u/l (38-126); AMYLASE 71 u/l (30-110); BILIRUBIN, TOTAL 0.3 mg/dL (0.0-1.4); BUN 17 mg/dL (9-20); BUN/CREATININE RATIO 17 (12-20 (CALC)); ETHYL ALCOHOL 0 mg/dl (0-30); GFR > 60 ML/MIN (>=60 (CALC)); GFR FOR AFR.AMER. > 60 ML/MIN (>=60 (CALC)); LIPASE 163 u/l (23-300); POTASSIUM 4.3 mmol/l (3.5-5.1); SGOT/AST 15 u/l (17-59); SODIUM 132 mmol/l (137-146); TOTAL PROTEIN 6.4 g/dL (6.3-8.2)
[2019-09-08 19:47] LABS: ANION GAP 32 (6-22 (CALC)); CARBON DIOXIDE 7 mmol/l (22-30); CHLORIDE 97 mmol/l (95-108)
[2019-09-08 19:49] LABS: MYOGLOBIN 37 ng/mL (0 - 121)
[2019-09-08 21:45] VITALS: BP 125/71
[2019-09-08 22:00] VITALS: BP 107/66
[2019-09-08 22:15] VITALS: BP 112/74
[2019-09-08 22:45] VITALS: BP 138/73
[2019-09-08 23:19] LABS: BUN 16 mg/dL (9-20); BUN/CREATININE RATIO 21 (12-20 (CALC)); CHLORIDE 105 mmol/l (95-108); CREATININE 0.7 mg/dL (0.7-1.3); GFR > 60 ML/MIN (>=60 (CALC)); GFR FOR AFR.AMER. > 60 ML/MIN (>=60 (CALC)); POTASSIUM 4.1 mmol/l (3.5-5.1); SODIUM 135 mmol/l (137-146)
[2019-09-08 23:20] LABS: ANION GAP 20 (6-22 (CALC)); CARBON DIOXIDE 14 mmol/l (22-30); MAGNESIUM 1.9 mg/dL (1.6-2.3)
[2019-09-09] VITALS (21 sets, daily range): BP systolic 102–165; BP diastolic 57–96
[2019-09-09 02:54] LABS: HEMATOCRIT 21.9 % (39.0-50.0); IMMATURE GRANULOCYTES 0.4 % (0.0-5.0); MEAN CORPUSCULAR HGB 24.6 pG CALC (26.0-32.0); MEAN CORPUSCULAR HGB CONC 31.1 g/L CALC (32.0-36.0); NEUT# 9.03 thou/uL (1.82-7.42); RED BLOOD COUNT 2.76 mill/uL (4.70-6.10); RED CELL DISTRI WIDTH 20.2 % (11.5-15.5)
[2019-09-09 03:14] LABS: HEMOGLOBIN 6.8 g/dl (14.0-18.0); MEAN CELL VOLUME 79.3 fL CALC (80.0-100.0)
[2019-09-09 03:20] LABS: ANION GAP 12 (6-22 (CALC)); BUN 15 mg/dL (9-20); BUN/CREATININE RATIO 23 (12-20 (CALC)); CHLORIDE 108 mmol/l (95-108); CREATININE 0.7 mg/dL (0.7-1.3); GFR > 60 ML/MIN (>=60 (CALC)); GFR FOR AFR.AMER. > 60 ML/MIN (>=60 (CALC)); POTASSIUM 3.7 mmol/l (3.5-5.1); SODIUM 135 mmol/l (137-146)
[2019-09-09 03:21] LABS: CARBON DIOXIDE 19 mmol/l (22-30)
[2019-09-09 18:33] LABS: URINE BILIRUBIN - DIPSTICK NEGATIVE (NEGATIVE); URINE BLOOD DIPSTICK NEGATIVE (NEGATIVE); URINE COLOR YELLOW; URINE GLUCOSE - DIPSTICK >=1000 mg/dL (NEGATIVE); URINE KETONE 40 mg/dL (NEGATIVE); URINE LEUK ESTERASE NEGATIVE (NEGATIVE); URINE NITRITE - DIPSTICK NEGATIVE (Negative); URINE PROTEIN - DIPSTICK NEGATIVE (NEG-TRACE); URINE UROBILINOGEN - DIPSTICK 0.2 E.U./dL (0.2)
[2019-09-09 18:36] LABS: BARBITURATES NEGATIVE (NEGATIVE); COCAINE NEGATIVE (NEGATIVE); METHADONE NEGATIVE (NEGATIVE); TETRAHYDROCANNABIONOL NEGATIVE (NEGATIVE); TRICYLIC ANTIDEPRESSANTS NEGATIVE (NEGATIVE)
[2019-09-09 18:37] LABS: OXCYCODONE NEGATIVE (NEGATIVE)
[2019-09-10] VITALS (19 sets, daily range): BP systolic 101–213; BP diastolic 47–105
[2019-09-10 05:49] LABS: HEMATOCRIT 26.9 % (39.0-50.0); HEMOGLOBIN 8.3 g/dl (14.0-18.0); MEAN CORPUSCULAR HGB 25.3 pG CALC (26.0-32.0); MEAN CORPUSCULAR HGB CONC 30.9 g/L CALC (32.0-36.0); RED BLOOD COUNT 3.28 mill/uL (4.70-6.10); RED CELL DISTRI WIDTH 19.9 % (11.5-15.5)
[2019-09-10 06:19] LABS: ANION GAP 10 (6-22 (CALC)); BUN 10 mg/dL (9-20); BUN/CREATININE RATIO 19 (12-20 (CALC)); CARBON DIOXIDE 20 mmol/l (22-30); CHLORIDE 109 mmol/l (95-108); CREATININE 0.5 mg/dL (0.7-1.3); GFR > 60 ML/MIN (>=60 (CALC)); GFR FOR AFR.AMER. > 60 ML/MIN (>=60 (CALC)); POTASSIUM 3.8 mmol/l (3.5-5.1); SODIUM 135 mmol/l (137-146)
[2019-09-11] VITALS (7 sets, daily range): BP systolic 90–133; BP diastolic 53–80
[2019-09-11 05:53] LABS: HEMATOCRIT 26.3 % (39.0-50.0); HEMOGLOBIN 8.4 g/dl (14.0-18.0); MEAN CELL VOLUME 80.4 fL CALC (80.0-100.0); MEAN CORPUSCULAR HGB 25.7 pG CALC (26.0-32.0); MEAN CORPUSCULAR HGB CONC 31.9 g/L CALC (32.0-36.0); RED BLOOD COUNT 3.27 mill/uL (4.70-6.10); RED CELL DISTRI WIDTH 19.7 % (11.5-15.5)
[2019-09-11 06:19] LABS: ANION GAP 7 (6-22 (CALC)); BUN 9 mg/dL (9-20); BUN/CREATININE RATIO 15 (12-20 (CALC)); CHLORIDE 106 mmol/l (95-108); CREATININE 0.6 mg/dL (0.7-1.3); GFR > 60 ML/MIN (>=60 (CALC)); GFR FOR AFR.AMER. > 60 ML/MIN (>=60 (CALC)); MAGNESIUM 1.8 mg/dL (1.6-2.3); POTASSIUM 3.9 mmol/l (3.5-5.1); SODIUM 134 mmol/l (137-146)
[2019-09-11 06:20] LABS: CARBON DIOXIDE 25 mmol/l (22-30)
[2019-09-11] MEDS ORDERED: AMOXICILLIN/CL875 MG PO (15:05)
[2019-09-11] MEDS ORDERED: NOVOLIN 70/30 SC (15:12)
== END 2019-09-11 15:40 | disposition home or self-care (01) | DRG 639 ==
LOC: ED 18:50 → ED-I 20:01 → ED 20:14 → ICU 20:15
PROVIDERS: Emergency Medicine; Internal Medicine; ADMIT Internal Medicine; ATTEND Internal Medicine
PROC: 30233N1 Transfusion of Nonautologous Red Blood Cells into Peripheral Vein, Percutaneous Approach (ICD-10-PCS; principal; 2019-09-09)
DX: E11.10 Type 2 diabetes mellitus with ketoacidosis without coma (principal); I10 Essential (primary) hypertension; D63.8 Anemia in other chronic diseases classified elsewhere; D50.9 Iron deficiency anemia, unspecified; F17.200 Nicotine dependence, unspecified, uncomplicated; F15.10 Other stimulant abuse, uncomplicated; T38.3X6A Underdosing of insulin and oral hypoglycemic [antidiabetic] drugs, initial encounter; Z91.120 Patient's intentional underdosing of medication regimen due to financial hardship; Z79.4 Long term (current) use of insulin; Z89.512 Acquired absence of left leg below knee; Z59.0 Homelessness
CPT/HCPCS: J1756; P9016

== ENCOUNTER 2019-09-26 13:48 | Inpatient (IN) | payer OTHER ==
[~2019-09-26] VITALS: Ht 182.9 cm; Wt 70.0 kg
[~2019-09-26 13:48] MED LIST changes: +AMOXICILLIN/CL875 MG PO
--- NOTE | 2019-09-26 13:59 | NUR ---
PT TO ROOM PER EMS.
[2019-09-26 14:28] LABS: HEMOGLOBIN 10.4 g/dl (14.0-18.0); IMMATURE GRANULOCYTES 0.6 % (0.0-5.0); MEAN CELL VOLUME 86.7 fL CALC (80.0-100.0); MEAN CORPUSCULAR HGB 25.1 pG CALC (26.0-32.0); MEAN CORPUSCULAR HGB CONC 28.9 g/dL CAL (32.0-36.0); NEUT# 17.23 thou/uL (1.82-7.42); RED BLOOD COUNT 4.15 mill/uL (4.70-6.10); RED CELL DISTRI WIDTH 18.4 % (11.5-15.5)
[2019-09-26 14:43] LABS: PROTHROMBIN TIME 10.2 SECONDS (9.0-12.5)
[2019-09-26 14:47] LABS: ALBUMIN 4.1 g/dL (3.2-5.0); ALKALINE PHOSPHATASE 162 u/l (38-126); BILIRUBIN, TOTAL 0.4 mg/dL (0.0-1.4); BUN 20 mg/dL (9-20); BUN/CREATININE RATIO 19 (12-20 (CALC)); CHLORIDE 104 mmol/l (95-108); CREATININE 1.1 mg/dL (0.7-1.3); ETHYL ALCOHOL 0 mg/dl (0-30); GFR > 60 ML/MIN (>=60 (CALC)); GFR FOR AFR.AMER. > 60 ML/MIN (>=60 (CALC)); SGOT/AST 12 u/l (17-59); TOTAL PROTEIN 7.2 g/dL (6.3-8.2)
[2019-09-26 14:54] LABS: ANION GAP 38 (6-22 (CALC)); POTASSIUM 5.4 mmol/l (3.5-5.1); SODIUM 142 mmol/l (137-146)
[2019-09-26 14:55] LABS: CARBON DIOXIDE < 5 mmol/l (22-30)
--- NOTE | 2019-09-26 15:10 | NUR ---
PT REPOSITIONS SELF. CENTRAL AND PERIPHERAL IV SITES PATENT. TACHYCARDIC. IV FLUIDS INFUSING. AFEBRILE
--- NOTE | 2019-09-26 16:00 | NUR ---
PT RESTING ON STRETCHER; NO S/S OF DISTRESS NOTED
--- NOTE | 2019-09-26 16:44 | NUR ---
INSULIN DRIP STARTED AT THIS TIME
[2019-09-26 17:33] LABS: BUN 24 mg/dL (9-20); BUN/CREATININE RATIO 22 (12-20 (CALC)); CHLORIDE 108 mmol/l (95-108); CREATININE 1.1 mg/dL (0.7-1.3); GFR > 60 ML/MIN (>=60 (CALC)); GFR FOR AFR.AMER. > 60 ML/MIN (>=60 (CALC)); SODIUM 141 mmol/l (137-146)
--- NOTE | 2019-09-26 17:40 | NUR ---
PT BS RECHECK HI; VSS; ADVISED OF CONTINUED WAIT TIME; PT ALERT TO SELF
[2019-09-26 17:49] LABS: ANION GAP 33 (6-22 (CALC)); CARBON DIOXIDE < 5 mmol/l (22-30); POTASSIUM 5.3 mmol/l (3.5-5.1)
--- NOTE | 2019-09-26 18:40 | NUR ---
PT RESTING ON STRETCHER; NO S/S OF DISTRESS NOTED; VSS;WILL CONTINUE TO MONITOR
[2019-09-26 19:00] LABS: ANION GAP 33 (6-22 (CALC)); BUN 26 mg/dL (9-20); BUN/CREATININE RATIO 25 (12-20 (CALC)); CHLORIDE 109 mmol/l (95-108); GFR > 60 ML/MIN (>=60 (CALC)); GFR FOR AFR.AMER. > 60 ML/MIN (>=60 (CALC)); POTASSIUM 4.3 mmol/l (3.5-5.1); SODIUM 143 mmol/l (137-146)
--- NOTE | 2019-09-26 19:01 | NUR ---
REPORT CALLED TO ABI GUTIERREZ; PT TO AD TO ICU WHEN ROOM AVAILABLE
[2019-09-26 19:15] LABS: CARBON DIOXIDE 5 mmol/l (22-30)
--- NOTE | 2019-09-26 19:30 | NUR ---
PT MOANING...WANTING WATER THEN VOMITED DARK BROWN/COFFEE GROUNDS. HEM POSITIVE. ACCU CK CRIT HIGH.
--- NOTE | 2019-09-26 19:30 | NUR ---
PT CONTINUES ON INSULIN DRIP AT 5 UNITS AN HOUR.
--- NOTE | 2019-09-26 19:40 | NUR ---
DR BELTRAN NOTIFIED OF VOMITING/HEM +. ALSO OF CRIT HI ACCUCK/BS 563 @ 0797. ORDERED REPEAT HGB/CHEM IN 2 HOURS. HGB/COS RESULTS TO
--- NOTE | 2019-09-26 20:15 | NUR ---
PT CLEANSED AGAIN. INSTRUCTED TO USE EMESIS BAG. PICTURES OF WOUNDS AND STUMP TAKEN MOUNTED ON ARRIVAL TO ICU. DRY ADAPTIC DRESSING TO RIGHT HEEL AND TOE. PT TRANSFERRED TO ICU VIA STRETCHER WITH INSULING DRIP INFUSING/PORTABLE TRANSPORT MONITOR WITH PT. (PT MANAGED TO KICK IT OFF THE STRETCHER) PT TRANSFERRED HIMSELF TO ICU BED. BAG WITH CLOTHES TO FLOOR WITH PT.
--- NOTE | 2019-09-26 20:20 | NUR ---
PT. ARRIVE VIA STRETCHER FROM ER WITH MONITOR IN PLACE. PT. MOVED HIM SELF FROM ER STRETCHER TO ICU BED WITHOUT ASSISTANCE. PT. ORIENTED TO PERSON AND PLACE AT THIS TIME. PT. SHORTS REMOVED. PLACED ON MONITOR. EXPLAINED CALL LIGHT AND SYSTEM TO PATIENT. VERBALIZES UNDERSTANDING. PROVIDED WITH URINAL AND EMESIS BAGS. COFFEE GROUND EMESIS NOTED TO MOUTH. ARRIVES ON INSULIN DRIP WITH KVO IV FLUIDS. WILL CLOSELY MONITOR.
[2019-09-26 20:30] VITALS: BP 140/88
[2019-09-26 20:45] VITALS: BP 127/68
[2019-09-26 21:00] VITALS: BP 127/70
[2019-09-26 21:11] LABS: ANION GAP 27 (6-22 (CALC)); BUN 27 mg/dL (9-20); BUN/CREATININE RATIO 30 (12-20 (CALC)); CHLORIDE 112 mmol/l (95-108); CREATININE 0.9 mg/dL (0.7-1.3); GFR > 60 ML/MIN (>=60 (CALC)); GFR FOR AFR.AMER. > 60 ML/MIN (>=60 (CALC)); POTASSIUM 4.2 mmol/l (3.5-5.1); SODIUM 145 mmol/l (137-146)
[2019-09-26 21:13] LABS: CARBON DIOXIDE 10 mmol/l (22-30)
[2019-09-26 21:32] LABS: HEMATOCRIT 28.4 % (39.0-50.0); HEMOGLOBIN 8.4 g/dl (14.0-18.0)
[2019-09-26 22:00] VITALS: BP 127/69
--- NOTE | 2019-09-26 22:30 | NUR ---
PT. WITH COFFEE GROUND EMESIS AT THIS TIME. PT. PROVIDED WITH NEW EMESIS BAG AND HE PROCEEDED TO URINATE IN THE EMESIS BAG. URINE SPECIMEN OBTAINED AND SENT TO LAB.
[2019-09-26 23:00] VITALS: BP 161/90
[2019-09-26 23:06] LABS: ANION GAP 30 (6-22 (CALC)); BUN 26 mg/dL (9-20); BUN/CREATININE RATIO 28 (12-20 (CALC)); CHLORIDE 112 mmol/l (95-108); CREATININE 0.9 mg/dL (0.7-1.3); GFR > 60 ML/MIN (>=60 (CALC)); GFR FOR AFR.AMER. > 60 ML/MIN (>=60 (CALC)); SODIUM 144 mmol/l (137-146)
[2019-09-26 23:19] LABS: CARBON DIOXIDE 6 mmol/l (22-30)
--- NOTE | 2019-09-26 23:30 | NUR ---
PT. FOUND TO HAVE VOMITED ALL OVER THE FLOOR DESPITE BEING PROVIDED WITH A NEW EMESIS BAG. COFFEE GROUND EMESIS NOTED. MD MADE AWARE OF SUCH WELL PT. HGB. NEW ORDERS RECEIVED. CALL LIGHT REMAINS WITHIN REACH.
[2019-09-27] VITALS (17 sets, daily range): BP systolic 98–150; BP diastolic 52–95
--- NOTE | 2019-09-27 00:05 | NUR ---
ACCUCHECK NOW 366. INSULIN DRIP DECREASED FROM 5 UNIT/HR TO 4 U/HR. NO EMESIS NOTED AT THIS TIME. AWAITING PROTONIX FROM MATH INTERVENTIONIST. WILL CONTINUE TO CLOSELY MONITOR.
--- NOTE | 2019-09-27 02:30 | NUR ---
PT. REMAINS STABLE AT THIS TIME. NO MORE EMESIS AT THIS TIME. IV FLUIDS CONTINUE TO INFUSE ORDERED. PROTONIX DRIP INFUSING.
[2019-09-27 02:37] LABS: ANION GAP 18 (6-22 (CALC)); BUN 31 mg/dL (9-20); BUN/CREATININE RATIO 39 (12-20 (CALC)); CHLORIDE 117 mmol/l (95-108); CREATININE 0.8 mg/dL (0.7-1.3); GFR > 60 ML/MIN (>=60 (CALC)); GFR FOR AFR.AMER. > 60 ML/MIN (>=60 (CALC)); SODIUM 146 mmol/l (137-146)
[2019-09-27 02:38] LABS: BARBITURATES NEGATIVE (NEGATIVE); COCAINE NEGATIVE (NEGATIVE); METHADONE NEGATIVE (NEGATIVE); OXCYCODONE NEGATIVE (NEGATIVE); TETRAHYDROCANNABIONOL NEGATIVE (NEGATIVE); TRICYLIC ANTIDEPRESSANTS NEGATIVE (NEGATIVE)
[2019-09-27 02:39] LABS: URINE BILIRUBIN - DIPSTICK NEGATIVE (NEGATIVE); URINE BLOOD DIPSTICK SMALL (NEGATIVE); URINE COLOR YELLOW; URINE GLUCOSE - DIPSTICK 500 mg/dL (NEGATIVE); URINE KETONE >=80 mg/dL (NEGATIVE); URINE LEUK ESTERASE NEGATIVE (NEGATIVE); URINE NITRITE - DIPSTICK NEGATIVE (Negative); URINE PH 5.5 (4.5-8.0); URINE PROTEIN - DIPSTICK TRACE mg/dL (NEG-TRACE); URINE SPECIFIC GRAVITY 1.025; URINE UROBILINOGEN - DIPSTICK 0.2 E.U./dL (0.2)
[2019-09-27 02:41] LABS: URINE EPITHELIAL CELLS FEW EPI/hpf (0-FEW)
[2019-09-27 02:42] LABS: URINE BACTERIA FEW hpf; URINE YEAST MANY hpf
[2019-09-27 02:45] LABS: CARBON DIOXIDE 15 mmol/l (22-30)
--- NOTE | 2019-09-27 04:56 | NUR ---
INSULIN DRIP DECREASED TO 3 UNITS AT THIS TIME.
--- NOTE | 2019-09-27 06:00 | NUR ---
ACCUCHECK NOW 209. IV FLUIDS CHANGED TO D51/2 NS ORDERED. LABS OBTAINED AT THIS TIME. CALL LIGHT REMAINS WITHIN REACH. PT. AND LINENS CHANGED AT THIS TIME HE WAS SOILED WITH COFFEE GROUND EMESIS.
[2019-09-27 06:39] LABS: HEMATOCRIT 26.7 % (39.0-50.0); HEMOGLOBIN 8.2 g/dl (14.0-18.0); IMMATURE GRANULOCYTES 0.4 % (0.0-5.0); MEAN CELL VOLUME 81.9 fL CALC (80.0-100.0); MEAN CORPUSCULAR HGB 25.2 pG CALC (26.0-32.0); MEAN CORPUSCULAR HGB CONC 30.7 g/dL CAL (32.0-36.0); NEUT# 16.13 thou/uL (1.82-7.42); RED BLOOD COUNT 3.26 mill/uL (4.70-6.10); RED CELL DISTRI WIDTH 18.3 % (11.5-15.5)
[2019-09-27 06:56] LABS: BUN 33 mg/dL (9-20); BUN/CREATININE RATIO 48 (12-20 (CALC)); CHLORIDE 119 mmol/l (95-108); CREATININE 0.7 mg/dL (0.7-1.3); GFR > 60 ML/MIN (>=60 (CALC)); GFR FOR AFR.AMER. > 60 ML/MIN (>=60 (CALC)); POTASSIUM 3.8 mmol/l (3.5-5.1); SODIUM 148 mmol/l (137-146)
--- NOTE | 2019-09-27 07:00 | NUR ---
PT RESTING IN BED WITH EYES CLOSED. WHEN ASKED TO STATE NAME AND PT SHAKES HEAD BACK AND FORTH. SHIFT ASSESSMENT COMPLETED AT THIS TIME. IV PATENT X2. CALL LIGHT IN REACH. WILL CONTINUE TO MONITOR.
[2019-09-27 07:07] LABS: ANION GAP 14 (6-22 (CALC)); CARBON DIOXIDE 19 mmol/l (22-30)
--- NOTE | 2019-09-27 08:30 | NUR ---
DR CASTRO AT BEDSIDE AT THIS TIME
--- NOTE | 2019-09-27 10:00 | NUR ---
PT RESTING IN BED WITH EYES CLOSED. RESP ARE EVEN AND UNLABORED. NO DISTRESS NOTED. PT CONTINUES TO REFUSE TO ANSWER QUESTIONS. CALL LIGHT IN REACH. WILL CONTINUE TO MONITOR.
--- NOTE | 2019-09-27 11:30 | NUR ---
SET UP MEAL TRAY IN ROOM.
--- NOTE | 2019-09-27 12:00 | NUR ---
PT RESTING IN BED WITH EYES CLOSED. PT DRANK TEA OF TRAY ASKED IF HE GOING TO EAT HE STATED NO. RESP ARE EVEN AND UNLABORED. NO DISTRESS NOTED. CALL LIGHT IN REACH. WILL OCNTINUE TO MONTR.
--- NOTE | 2019-09-27 13:59 | NUR ---
PT RESTING IN BED WITH EYES CLOSED. RESP ARE EVEN AND UNLABORED. NO DISTRESS NOTED. CALL LIGHT IN REACH. WILL continUE TO MONITOR.
--- NOTE | 2019-09-27 15:30 | NUR ---
PT TRANSFERRED TO MED SURG FLOOR VIA BED. CALL LIGHT IN REACH.
--- NOTE | 2019-09-27 15:35 | NUR ---
PATIENT ABLE TO MAKE NEEDS KNOWN PATIENT AN TRANSFER FROM ICU, NO S/S RESP DISTRESS, PATIENT NO C/O PAIN, WILL CONTINUE TO MONITOR, CALL LIGHT WITHIN REACH
--- NOTE | 2019-09-27 19:00 | NUR ---
RECEIVED REPORT FROM DAY NURSE SANTO RESTING IN BED EYES CLOSED, NO DISCOMFORTS NOTED AT THIS TIME, CALL LIGHT AT REACH.
--- NOTE | 2019-09-27 20:49 | NUR ---
SPOKE TO DR. SOLORZANO AND INFORMED ABOUT BLOOD SUGAR 85, WITH ORDERS TO HOLD 9PM DOSE OF 70/30.
[2019-09-28] VITALS (13 sets, daily range): BP systolic 95–158; BP diastolic 60–104
--- NOTE | 2019-09-28 00:03 | NUR ---
PATIENT RESTING IN BED WITH EYS CLOSED WITH EVEN UNLABORED BREATHING CALLLIGHT AT REACH.
--- NOTE | 2019-09-28 04:34 | NUR ---
PATIENT APPEARS TO BE SLEEPING WITH EYES CLOSED, WITH EVEN UNLABORED BREATHING CALL LIGHT AT REACH.
[2019-09-28 05:43] LABS: MEAN CELL VOLUME 81.7 fL CALC (80.0-100.0); MEAN CORPUSCULAR HGB 24.9 pG CALC (26.0-32.0); MEAN CORPUSCULAR HGB CONC 30.5 g/dL CAL (32.0-36.0); RED BLOOD COUNT 2.57 mill/uL (4.70-6.10); RED CELL DISTRI WIDTH 18.6 % (11.5-15.5)
[2019-09-28 05:47] LABS: BUN 22 mg/dL (9-20); BUN/CREATININE RATIO 42 (12-20 (CALC)); CARBON DIOXIDE 22 mmol/l (22-30); CHLORIDE 113 mmol/l (95-108); CREATININE 0.5 mg/dL (0.7-1.3); GFR > 60 ML/MIN (>=60 (CALC)); GFR FOR AFR.AMER. > 60 ML/MIN (>=60 (CALC)); MAGNESIUM 1.8 mg/dL (1.6-2.3); POTASSIUM 3.5 mmol/l (3.5-5.1)
[2019-09-28 05:48] LABS: ANION GAP 9 (6-22 (CALC)); SODIUM 140 mmol/l (137-146)
[2019-09-28 06:31] LABS: HEMOGLOBIN 6.4 g/dl (14.0-18.0)
--- NOTE | 2019-09-28 06:36 | NUR ---
RECEIVED A PHONE CALL FROM LAB ABOUT CRITICALLY LOW HGB 6.4 @ 6734, CALLED DR. SOLORZANO TO DO A REPEAT H/H.
[2019-09-28 06:57] LABS: HEMATOCRIT 20.8 % (39.0-50.0)
--- NOTE | 2019-09-28 07:00 | NUR ---
SHIFT CHANGE REPORT, PT GROUCHY, KEEPS EYES CLOSED, DENIED PAIN/DISCOMFORT,DRESSING TO RLE CDI, SCABS OBSERVED ON LEFT BKA STUMP, CALL GEORGE IN REACH.
[2019-09-28 07:01] LABS: HEMOGLOBIN 6.4 g/dl (14.0-18.0)
--- NOTE | 2019-09-28 07:18 | NUR ---
PATIENT REPEAT HGB 6.4, DAY SHIFT NURSE MADE AWARE.
--- NOTE | 2019-09-28 07:19 | NUR ---
ORDERED 2 UNITS OF PRBC AT THIS TIME.
--- NOTE | 2019-09-28 11:15 | NUR ---
RESTING IN BED, INFORMED OF POSSIBLE ADVERSE SIDE EFFECTS OF BLOOD TRANSUSION, STATED UNDERSTANDING, FIRST 15 MINS COMPLETED WITHOUT REACTION.
--- NOTE | 2019-09-28 17:38 | NUR ---
STAYED IN BED ALL DAY AND BECAME IRATE WHEN AWAKENED FOR CARE. SECOND UNIT PRBC JUST COMPLETED WITHOUT ANY ADVERSE REACTION AND PT TOLERATED WELL.
--- NOTE | 2019-09-28 19:00 | NUR ---
RECEIVEDREPORTFROM DAY SHIFT NURSE PATIENT APPEARS TO BE SLEEPING WITH EYES CLOSED, EVEN UNLABORED RESPIRATION
--- NOTE | 2019-09-28 21:27 | NUR ---
DRESSING CHANGED ON RT FOOT DONE AT THIS TIME.
--- NOTE | 2019-09-29 | NUR ---
PATIENT APPEARS TO BE SLEEPING WITH EVEN UNLABORED RESPIRATION, CALL LIGHT ATREACH.
[2019-09-29 01:05] VITALS: BP 120/68
[2019-09-29 03:50] VITALS: BP 112/71
--- NOTE | 2019-09-29 04:47 | NUR ---
PATIENT APPEARS TO BE SLEEPING WITH EYES CLOSED, EVEN UNLABORED BREATHING CALLLIGHT AT REACH.
[2019-09-29 05:34] LABS: HEMATOCRIT 29.8 % (39.0-50.0); HEMOGLOBIN 9.4 g/dl (14.0-18.0)
[2019-09-29 05:37] LABS: ANION GAP 7 (6-22 (CALC)); BUN 15 mg/dL (9-20); BUN/CREATININE RATIO 31 (12-20 (CALC)); CHLORIDE 106 mmol/l (95-108); CREATININE 0.5 mg/dL (0.7-1.3); GFR > 60 ML/MIN (>=60 (CALC)); GFR FOR AFR.AMER. > 60 ML/MIN (>=60 (CALC)); MAGNESIUM 1.8 mg/dL (1.6-2.3); POTASSIUM 3.1 mmol/l (3.5-5.1); SODIUM 137 mmol/l (137-146)
[2019-09-29 05:43] LABS: CARBON DIOXIDE 27 mmol/l (22-30)
--- NOTE | 2019-09-29 07:00 | NUR ---
SHIFT CHANGE REPORT, PT LYING IN BED WITH EYES CLOSED, RESPONDS TO VERBAL STIMULI, GRUMPY DISPOSITION AND USES OBSCENE LANGUAGE TO EXPRESS DISSATISFACTION OF CONTENTS OF MEAL TRAY, DENIES PAIN, DRESSING TO RLE CDI, CALL GEORGE IN REACH.
[2019-09-29 07:40] VITALS: BP 141/82
--- NOTE | 2019-09-29 09:49 | NUR ---
PT ANGRY AND ASKING NURSE TO LEAVE MED ON BEDSIDE TABLE HE WANTS TO SLEEP AND IS BEING INTERRUPTED EVERY TIME HE TRIES TO SLEEP.
--- NOTE | 2019-09-29 12:03 | NUR ---
09/29/19 Patient is attempted for evaluation. He is homeless but tells me he has a wheelchair. He is a BK amputation on the left and has diabetic ulcers on the RLE. He is lethargic and has been cantankerous with staff. He told me he would not try to get OOB because he felt sick but agreed to try a little later in the afternoon.
--- NOTE | 2019-09-29 14:44 | NUR ---
S: TONIO BARROSO is a 43 M who presents with pressure ulcer. He has a history of DM2. All medications in patient's chart were reviewed. O: VS: BP 141/82 , P 105, RR 19,T 98.5 W 70kg>, HT 72in, Scr= 1.1,CrCl= 108 ml/min A: Blood culture is pending Wound culture is pending P: Patient is on zosyn 3.375gm q6h . Vancomycin ordered for pharmacy to dose. Start Vancomycin 1250mg IV Q12H. Vancomycin trough is drawn before the 4th dose on 0 on 10/01/19 Vancomycin goal trough is between 10-15 mcg/ml. Pharmacy will follow and or advise on antibiotics use as needed. ANGEL LUJAND
--- NOTE | 2019-09-29 14:49 | NUR ---
RESTING IN BED WITH HEAD COVERED AND EYES CLOSED, INFORMED OF NEW DRESSING CHANGE ORDERS AND PROCEDURE. 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
[2019-09-29 15:16] VITALS: BP 89/60
--- NOTE | 2019-09-29 15:22 | NUR ---
PT RESTING IN BED, EQUINE VET WENT TO MEASURE VITALS, HE WAS RUDE TO HER AND COMPLAINED OF BEING INTERRUPTED AFTER RELUCTANTLY ALLOWING HER TO MEASURE, DOCUMENTED VALUES MAY BE INACCURATE DUE TO PT'S DEPLORABLE BEHAVIOR/RESPONSE TO STAFF AND UNWILLINGNESS TO COOPERATE.
--- NOTE | 2019-09-29 19:03 | NUR ---
REPORT RECEIVED FROM ABI FRANCISCO. PT RESTING IN BED. NO S/S OF DISTRESS AT THIS TIME. WILL CONTINUE TO MONITOR.
[2019-09-29 20:00] VITALS: BP 94/61
--- NOTE | 2019-09-29 20:50 | NUR ---
PT RESTING IN BED, ALERT AND ORIETNED. RESPIRATIONS EVEN AND UNLABORED, LUNGS SOUND CLEAR. PT DENIES ANY PAIN OR DISCOMFORT AT THIS TIME. PT PROVIDED WITH ICE WATER. SAFETY PRECAUTIONS IN PLACE. WILL CONTINUE TO MONITOR.
--- NOTE | 2019-09-30 00:58 | NUR ---
PT REFUSING CARE STATING "WHATEVER NEEDS TO BE DONE CAN BE DONE DURING THE DAY I DON'T WANT YOU TO COME BACK IN HERE TONIGHT."
[2019-09-30 01:39] LABS: HEMATOCRIT 29.4 % (39.0-50.0); HEMOGLOBIN 9.3 g/dl (14.0-18.0); MEAN CELL VOLUME 81.9 fL CALC (80.0-100.0); MEAN CORPUSCULAR HGB 25.9 pG CALC (26.0-32.0); MEAN CORPUSCULAR HGB CONC 31.6 g/dL CAL (32.0-36.0); RED BLOOD COUNT 3.59 mill/uL (4.70-6.10); RED CELL DISTRI WIDTH 17.1 % (11.5-15.5)
[2019-09-30 02:12] LABS: ANION GAP 5 (6-22 (CALC)); BUN 12 mg/dL (9-20); BUN/CREATININE RATIO 18 (12-20 (CALC)); CARBON DIOXIDE 28 mmol/l (22-30); CHLORIDE 109 mmol/l (95-108); CREATININE 0.7 mg/dL (0.7-1.3); GFR > 60 ML/MIN (>=60 (CALC)); GFR FOR AFR.AMER. > 60 ML/MIN (>=60 (CALC)); POTASSIUM 3.3 mmol/l (3.5-5.1); SODIUM 138 mmol/l (137-146)
--- NOTE | 2019-09-30 04:28 | NUR ---
PT REFUSING CARE. PT RESTING IN BED. NO S/S OF DISTRESS AT THIS TIME.
--- NOTE | 2019-09-30 07:23 | NUR ---
JANINE BRITTON REPORT, PT IN BED, DOES NOT ANSWER TO VERBAL COMMUNICATION, DOES NOT SEEM TO BE IN DISRESS, CALL GEORGE IN REACH.
[2019-09-30 08:15] VITALS: BP 106/65
--- NOTE | 2019-09-30 12:00 | NUR ---
WHOLE DISPOSITION HAS CHANGED TODAY, VERY POLITE AND APPRECIATIVE, COMPLIANT WITH CARE, WILL CONTINUE TO MONITOR.
--- NOTE | 2019-09-30 13:00 | NUR ---
OLD DRESSING TO RGHT HEEL AND 2ND TOE REMOVED, NEW DRESSING APPLIED PER NO PT TOLERATED WELL.
--- NOTE | 2019-09-30 14:35 | NUR ---
Patient is seen today for evaluation. He did comply with a short evaluation and demonstrated independent bed mobility and supine to sit transfer. He refused further transfer. Patietn expressed suicidal ideation stating he was going to hang himself when he gets discharged from the hospital. Informed bothcase management and nursing
--- NOTE | 2019-09-30 15:02 | NUR ---
[facility] REPORTED PT COMMENTED HE IS GOING TO HANG HIMSELF SOON HE GETS OUT OF HERE. NURSE ADDRESSED WITH PT WHO STATED HE WAS SORRY HE MADE THAT COMMENT AND HE DOESNT WANT US TO BAKERACT HIM. HE STATED HIS LIFE IS SO MESSED UP NOW BUT HE IS GOING TO A HOME WHEN HE LEAVES AND HE IS GOING TO LOOK ABOUT GETTING SSI AND TRY TO STRAIGHTEN HIS LIFE, HE ALSO APOLOGISED FOR THE RESPONSE HE HAS GIVEN TO STAFF HERE AND EXPRESSED GRATITUDE FOR THE CARE HERE. WILL CONTINUE TO MONITOR.
[2019-09-30 15:03] VITALS: BP 103/69
--- NOTE | 2019-09-30 16:00 | NUR ---
RELAXING IN BED WATCHING TV, ALL NEEDS ADDRESSED AND MET, NO NEW COMPLAINS, GAVE ADDRESS OF PLACE HE WILL BE STAYING AFTER DC, WILL PASS ON TO NEXT SIFT.
--- NOTE | 2019-09-30 20:00 | NUR ---
PT AWAKE. ALERT AND ORIENTED X3. NO C/O AT THIS TIME. TLC CLEAN DRY AND INTACT. DRESSING TO LOWER EXTREMETY CDI. BREATHING EVEN AND UNLABORED. AB SOFT, NONTENDER BS +. CALL LIGHT IN REACH.
[2019-10-01 04:55] VITALS: BP 103/68
[2019-10-01 05:15] LABS: HEMATOCRIT 28.6 % (39.0-50.0); MEAN CELL VOLUME 82.7 fL CALC (80.0-100.0); MEAN CORPUSCULAR HGB CONC 31.5 g/dL CAL (32.0-36.0); RED BLOOD COUNT 3.46 mill/uL (4.70-6.10); RED CELL DISTRI WIDTH 17.2 % (11.5-15.5)
[2019-10-01 07:34] VITALS: BP 93/54
--- NOTE | 2019-10-01 07:40 | NUR ---
SHIFT CHANGE REPORT, PT AWAKE AND ORIENTED, NO CO DISCOMFORT AT THIS TIME, NEEDS ADDRESSED, CALL GEORGE IN REACH.
[2019-10-01] MEDS ORDERED: NOVOLIN 70/30 SC (10:53)
[2019-10-01] MEDS ORDERED: PANTOPRAZOLE SO40 M1 PO (10:53)
--- NOTE | 2019-10-01 10:55 | NUR ---
S: TONIO BARROSO is a 43 M who presents with pressure ulcer of heel. He has a history of chronic alcohol abuse, recreational drug abuse, mental disorder, DM, HTN, DKA, DAVID, and neuropathy. All medications in patient's chart were reviewed. O: VS: BP 93/54 mmHg, P 94 bpm, RR 18 breaths/min, T 98.8 F W 70.023 kg, HT 72 in, Scr 0.7 mg/dL A: Blood culture is pending. Wound culture shows MSSA. P: Patient is on Zosyn 3.375d IV q6h. Vancomycin ordered for pharmacy to dose. Trough from 10/01/19 @ 0028 was 10 ug/ml. Continue vancomycin 1250mg IV Q12H. Draw vancomycin trough 10/02/19 @ 1230. Vancomycin goal trough is between 10-15 mcg/ml. Pharmacy will follow and or advise on antibiotics use as needed.
[2019-10-01] MEDS ORDERED: AMOX/K CLAV875 M1 PO (10:56)
[2019-10-01] MEDS ORDERED: DOXYCYCL HYC100 MG PO (10:56)
--- NOTE | 2019-10-01 12:00 | NUR ---
OLD DRESSINGS TO RLE REMOVED, PURULENT DRAINAGE OBSERVED ON BOTH HEEL & 2ND TOE DRESSINGS. SMALL TO MODERATE AMOUNT PUS EXPELLED FROM BOTH WOUNDS THEN NEW DRESSING APPLIED P/ER ORDER.
--- NOTE | 2019-10-01 14:40 | NUR ---
SPOKE WITH [facility] LIBRARY CIRCULATION CLERK. PRESCRIPTIONS ARE COVERED AT NO CHARGE TO PATIENT.
--- NOTE | 2019-10-01 15:01 | NUR ---
Discharge instructions given. Patient verbalizes understanding of same. Discharged in stable condition via Ambulatory to Home with family. All belongings sent with pt. INSTRUCTIONS, INFORMATION AND EDUCATION GIVEN ON HOME CARE INCLUDING ADHERANCE TO MEDICATION THERAPY. TRANSPORTED OFF UNIT BY STAFF TO BE PICKED UP BY [facility] WHO WILL DRIVE HIM TO [facility] TO RECEIVE MEDS THEN TO TRANSPORT HOME.
== END 2019-10-01 14:56 | disposition home or self-care (01) | DRG 638 ==
LOC: ED 13:48 → ED-I 14:22 → ED 14:22 → ED-I 15:18 → ED 15:48 → ED-I 15:49 → ICU 19:10 → MS2 09-27 12:03
PROVIDERS: Family Medicine; Internal Medicine; Nurse Practitioner Family; ADMIT Internal Medicine; ATTEND Internal Medicine
PROC: 30233N1 Transfusion of Nonautologous Red Blood Cells into Peripheral Vein, Percutaneous Approach (ICD-10-PCS; principal; 2019-09-28)
PROC: 30233N1 Transfusion of Nonautologous Red Blood Cells into Peripheral Vein, Percutaneous Approach (ICD-10-PCS; 2019-09-28)
DX: E11.10 Type 2 diabetes mellitus with ketoacidosis without coma (principal); L97.419 Non-pressure chronic ulcer of right heel and midfoot with unspecified severity; L03.115 Cellulitis of right lower limb; E11.51 Type 2 diabetes mellitus with diabetic peripheral angiopathy without gangrene; E11.621 Type 2 diabetes mellitus with foot ulcer; L89.890 Pressure ulcer of other site, unstageable; L89.610 Pressure ulcer of right heel, unstageable; I10 Essential (primary) hypertension; D63.8 Anemia in other chronic diseases classified elsewhere; F10.10 Alcohol abuse, uncomplicated; F15.10 Other stimulant abuse, uncomplicated; F17.200 Nicotine dependence, unspecified, uncomplicated; B95.61 Methicillin susceptible Staphylococcus aureus infection as the cause of diseases classified elsewhere; Z89.512 Acquired absence of left leg below knee; Z91.19 Patient's noncompliance with other medical treatment and regimen; Z59.0 Homelessness
CPT/HCPCS: J0692; J3370; P9016; S0164

== ENCOUNTER 2020-02-19 14:35 | Emergency (ER) | payer OTHER ==
[~2020-02-19] VITALS: Ht 182.9 cm; Wt 75.0 kg
[~2020-02-19 14:35] MED LIST changes: +AMOX/K CLAV875 M1 PO
[2020-02-19 15:46] LABS: HEMATOCRIT 25.4 % (39.0-50.0); HEMOGLOBIN 7.5 g/dl (14.0-18.0); IMMATURE GRANULOCYTES 0.6 % (0.0-5.0); MEAN CELL VOLUME 81.4 fL CALC (80.0-100.0); MEAN CORPUSCULAR HGB CONC 29.5 g/dL CAL (32.0-36.0); NEUT# 10.35 thou/uL (1.82-7.42); RED BLOOD COUNT 3.12 mill/uL (4.70-6.10); RED CELL DISTRI WIDTH 16.9 % (11.5-15.5)
[2020-02-19 16:02] LABS: ALKALINE PHOSPHATASE 125 u/l (38-126); BILIRUBIN, TOTAL 0.3 mg/dL (0.0-1.4); BUN 24 mg/dL (9-20); BUN/CREATININE RATIO 31 (12-20 (CALC)); CHLORIDE 101 mmol/l (95-108); CREATININE 0.8 mg/dL (0.7-1.3); GFR > 60 ML/MIN (>=60 (CALC)); GFR FOR AFR.AMER. > 60 ML/MIN (>=60 (CALC)); POTASSIUM 3.8 mmol/l (3.5-5.1); SGOT/AST 13 u/l (17-59)
[2020-02-19 16:05] LABS: ALBUMIN 2.9 g/dL (3.2-5.0); ANION GAP 15 (6-22 (CALC)); CARBON DIOXIDE 19 mmol/l (22-30); SODIUM 131 mmol/l (137-146)
[2020-02-19 16:14] LABS: MYOGLOBIN 23 ng/mL (0 - 121)
[2020-02-19 17:44] LABS: URINE BILIRUBIN - DIPSTICK NEGATIVE (NEGATIVE); URINE BLOOD DIPSTICK NEGATIVE (NEGATIVE); URINE COLOR YELLOW; URINE GLUCOSE - DIPSTICK >=1000 mg/dL (NEGATIVE); URINE KETONE 15 mg/dL (NEGATIVE); URINE LEUK ESTERASE NEGATIVE (NEGATIVE); URINE NITRITE - DIPSTICK NEGATIVE (Negative); URINE PROTEIN - DIPSTICK TRACE mg/dL (NEG-TRACE); URINE SPECIFIC GRAVITY 1.025; URINE UROBILINOGEN - DIPSTICK 0.2 E.U./dL (0.2)
[2020-02-19] MEDS ORDERED: BACTRIM DS1 TAB PO ×2 (18:56)
[2020-02-19 21:20] VITALS: BP 120/80
== END 2020-02-19 21:20 | disposition home or self-care (01) ==
LOC: ED 14:35
PROVIDERS: Emergency Medicine
DX: E11.65 Type 2 diabetes mellitus with hyperglycemia (principal); D63.8 Anemia in other chronic diseases classified elsewhere; E11.621 Type 2 diabetes mellitus with foot ulcer; L97.419 Non-pressure chronic ulcer of right heel and midfoot with unspecified severity; L97.519 Non-pressure chronic ulcer of other part of right foot with unspecified severity; E11.40 Type 2 diabetes mellitus with diabetic neuropathy, unspecified; F17.200 Nicotine dependence, unspecified, uncomplicated; Z89.512 Acquired absence of left leg below knee; Z89.421 Acquired absence of other right toe(s)

== ENCOUNTER 2020-02-23 01:17 | Emergency (ER) | payer OTHER ==
[~2020-02-23] VITALS: Ht 182.9 cm; Wt 54.5 kg
[2020-02-23 02:12] LABS: HEMATOCRIT 26.8 % (39.0-50.0); HEMOGLOBIN 7.5 g/dl (14.0-18.0); IMMATURE GRANULOCYTES 0.7 % (0.0-5.0); MEAN CORPUSCULAR HGB 24.4 pG CALC (26.0-32.0); NEUT# 26.8 thou/uL (1.82-7.42); RED BLOOD COUNT 3.07 mill/uL (4.70-6.10)
[2020-02-23 02:16] LABS: MEAN CELL VOLUME 87.3 fL CALC (80.0-100.0)
[2020-02-23 02:35] LABS: ACT PARTIAL THROMBO TIME 29.9 SECONDS (20.0-32.5); INTERNATIONAL NORMALIZED RATIO 1.1 RATIO (0.7-1.3); PROTHROMBIN TIME 11.3 SECONDS (9.0-12.5)
[2020-02-23 02:37] LABS: ALBUMIN 2.9 g/dL (3.2-5.0); ALKALINE PHOSPHATASE 142 u/l (38-126); AMYLASE 40 u/l (30-110); BILIRUBIN, TOTAL 0.2 mg/dL (0.0-1.4); BUN 12 mg/dL (9-20); BUN/CREATININE RATIO 15 (12-20 (CALC)); CPK 30 u/l (52-200); CREATININE 0.9 mg/dL (0.7-1.3); ETHYL ALCOHOL 0 mg/dl (0-30); GFR > 60 ML/MIN (>=60 (CALC)); GFR FOR AFR.AMER. > 60 ML/MIN (>=60 (CALC)); LIPASE 22 u/l (23-300); POTASSIUM 4.2 mmol/l (3.5-5.1); SGOT/AST 10 u/l (17-59); TOTAL PROTEIN 5.8 g/dL (6.3-8.2)
[2020-02-23 02:45] LABS: ANION GAP 30 (6-22 (CALC)); CARBON DIOXIDE < 5 mmol/l (22-30); CHLORIDE 114 mmol/l (95-108); SODIUM 145 mmol/l (137-146)
[2020-02-23 04:04] VITALS: BP 113/70
[2020-02-23 06:52] LABS: URINE BILIRUBIN - DIPSTICK NEGATIVE (NEGATIVE); URINE BLOOD DIPSTICK TRACE-INTACT (NEGATIVE); URINE COLOR YELLOW; URINE GLUCOSE - DIPSTICK 500 mg/dL (NEGATIVE); URINE KETONE >=80 mg/dL (NEGATIVE); URINE LEUK ESTERASE NEGATIVE (NEGATIVE); URINE NITRITE - DIPSTICK NEGATIVE (Negative); URINE PROTEIN - DIPSTICK TRACE mg/dL (NEG-TRACE); URINE SPECIFIC GRAVITY 1.025; URINE UROBILINOGEN - DIPSTICK 0.2 E.U./dL (0.2)
--- NOTE | 2020-02-24 07:58 | NUR ---
PRELIMINARY BLOOD CX RESULTS SHOWS GRAM NEGATIVE RODS. PT WAS XFER TO [facility]. RESULTS CALLED TO ALICE IN THE ICU AND FAXED TO [phone]
== END 2020-02-23 04:04 | disposition short-term general hospital (02) ==
LOC: ED 01:17
DX: A41.9 Sepsis, unspecified organism (principal); J18.9 Pneumonia, unspecified organism; E11.10 Type 2 diabetes mellitus with ketoacidosis without coma; L89.610 Pressure ulcer of right heel, unstageable; D63.8 Anemia in other chronic diseases classified elsewhere; E11.621 Type 2 diabetes mellitus with foot ulcer; L97.519 Non-pressure chronic ulcer of other part of right foot with unspecified severity; E11.40 Type 2 diabetes mellitus with diabetic neuropathy, unspecified; F17.200 Nicotine dependence, unspecified, uncomplicated; Z91.19 Patient's noncompliance with other medical treatment and regimen; Z89.512 Acquired absence of left leg below knee; Z20.828 Contact with and (suspected) exposure to other viral communicable diseases